=== PATIENT | male | born 1965 | race Two or more races ===

== ENCOUNTER 2016-12-25 13:33 | Inpatient (IN) | payer MEDICARE, MEDICAID ==
[~2016-12-25] VITALS: Ht 175.3 cm; Wt 68.0 kg
[~2016-12-25 13:33] MED LIST: DEPAKOTE ER500 MG ORAL; FERROUS SULFAT325 M2 ORAL; KEPPRA500 MG ORAL; LACTULOSE20 GM/301 ORAL; LORAZEPAM1 MG ORAL; MOM30 ML ORAL; MYLANTA30 M1 PO; NORCO 5-325 TA1 EAC1 ORAL; PHENOBARBITAL100 MG ORAL; RISPERDAL1 MG PO; TRAMADOL HCL50 MG ORAL; TYLENOL325 MG ORAL
[2016-12-25 13:45] VITALS: BP 108/73
[2016-12-25] MEDS ORDERED: AMBIEN5 MG ORAL (13:46)
[2016-12-25] MEDS ORDERED: COLACE100 MG ORAL (13:46)
[2016-12-25] MEDS ORDERED: Cefepime HCl 1 GM in NS 55 ML IV STA (13:48)
[2016-12-25] MEDS ORDERED: DEPAKENE250 MG/5 M PO (13:56)
[2016-12-25] MEDS ORDERED: NEURONTIN100 MG ORAL (13:57)
[2016-12-25] MEDS ORDERED: PHENOBARBITAL60 MG ORAL (13:57)
[2016-12-25] MEDS ORDERED: Vancomycin 1 GM in NS 275 ML IV ONE (14:00)
[2016-12-25] MEDS ORDERED: Morphine Sulfate 2mg/ml Inj IVP ONE (14:00)
--- NOTE | 2016-12-25 14:44 | Emergency Room Report ---
History of Present Illness General Chief Complaint: Edema Source: Patient, Medical Record, EMS Present Illness HPI Patient is sent in for increased edema and erythema the right lower leg. He sustained a fracture in 2016. An x-ray was taken on December 21 which excluded a fracture at this time. The patient's complaining about pain in the leg. Swelling was noted and he was sent for evaluation. He is unable to communicate well because of an expressive aphasia. He denies GIBBONS , cough, sore throat, chest pain, dyspnea. Does not seem to understand about dysuria. Chronic contractures. 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 The patient suffers from seizures and is on Keppra, phenobarbital and gabapentin. It's unknown when his last seizure was - though he was seen twice in 2016 for seizures. POLST present, but not filled out. 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; hemiplegia Hx Cerebrovascular Accident: Yes Hx Seizures: Yes Review of Systems All Other Systems: limited Physical Exam Vital Signs Date Time Temp Pulse Resp B/P (MAP) Pulse Ox O2 Delivery O2 Flow Rate FiO2 12/25/16 13:35 97.5 104 16 111/73 95 Room Air Sp02 EP Interpretation: reviewed, abnormal - interpreted as low by me General Appearance: well appearing, no apparent distress, GCS 15 Head: other - craneal abnormality Eyes: bilateral eye normal inspection, bilateral eye PERRL ENT: dry mucus membranes Neck: supple Respiratory: lungs clear, normal breath sounds Cardiovascular #1: no murmur, tachycardia, edema - RLE 1-2+ Cardiovascular #2: 2+ radial (L) Gastrointestinal: normal inspection, normal bowel sounds, non tender, no mass, non-distended, other - G tube Musculoskeletal: back normal, other - R flexor contractures UE and extensor conctracures LE Neurologic: alert, responsive, motor weakness - R hemiparesis, other - yes and no answers Psychiatric: mood/affect normal Skin: warm/dry, other - erythema L lower leg with erythematous plaques dorsum near ankle Medical Decision Making Diagnostic Impression: Primary Impression: Cellulitis of right foot Additional Impressions: Status post CVA UTI (urinary tract infection) Qualified Codes: N30.00 - Acute cystitis without hematuria Old fracture right tibia Hypernatremia Renal insufficiency Seizure disorder ER Course Patient presents with edema and erythema of RLE. DDx: cellulitis, osteomyelitis , fracture amongst others. Based on complex presentation and prior medical condition, full evaluation needed with EKG, CXR, BC, lactate, CBC, CMP and coags. Xrays will be taken of RLE and foot. Patient will be treated with IV hydration, antibiotics and analgesia. EKG ST, CXR atelectasis L base, Old fx R tib fib with osteopenia foot. Labs with hypernatremia, renal insufficiency. WBC upper limits normal. Pyuria. Phenobarbital level normal. Improved with hydration and treatment for pain. Admitted medical Dr. Ferrer. Laboratory Tests Test 12/25/16 14:10 12/25/16 14:40 White Blood Count 10.4 K/UL (4.8-10.8) Red Blood Count 3.43 M/UL (4.70-6.10) L Hemoglobin 10.7 G/DL (14.2-18.0) L Hematocrit 33.7 % (42.0-52.0) L Mean Corpuscular Volume 98 FL (80-99) Mean Corpuscular Hemoglobin 31.1 PG (27.0-31.0) H Mean Corpuscular Hemoglobin Concent 31.6 G/DL (32.0-36.0) L Red Cell Distribution Width 14.3 % (11.6-14.8) Platelet Count 270 K/UL (150-450) Mean Platelet Volume 5.6 FL (6.5-10.1) L Neutrophils (%) (Auto) 70.7 % (45.0-75.0) Lymphocytes (%) (Auto) 21.2 % (20.0-45.0) Monocytes (%) (Auto) 7.3 % (1.0-10.0) Eosinophils (%) (Auto) 0.4 % (0.0-3.0) Basophils (%) (Auto) 0.4 % (0.0-2.0) Prothrombin Time 9.4 SEC (9.30-11.50) Prothrombin Time INR 0.9 (0.9-1.1) PTT 36 SEC (23-33) H Sodium Level 147 MMOL/L (136-145) H Potassium Level 4.1 MMOL/L (3.5-5.1) Chloride Level 110 MMOL/L (98-107) H Carbon Dioxide Level 28 MMOL/L (21-32) Anion Gap 9 mmol/L (5-15) Blood Urea Nitrogen 28 mg/dL (7-18) H Creatinine 1.6 MG/DL (0.55-1.30) H Estimate Glomerular Filtration Rate 46.2 mL/min (>60) Glucose Level 75 MG/DL (74-106) Lactic Acid Level 1.00 mmol/L (0.66-2.22) Calcium Level 9.7 MG/DL (8.5-10.1) Total Bilirubin 0.5 MG/DL (0.2-1.0) Aspartate Amino Transferase (AST) 73 U/L (15-37) H Alanine Aminotransferase (ALT) 215 U/L (12-78) H Alkaline Phosphatase 474 U/L (46-116) H Total Creatine Kinase 65 U/L (26-308) Troponin I 0.000 ng/mL (0.000-0.056) Pro-B-Type Natriuretic Peptide 254 pg/mL (0-125) H Total Protein 8.5 G/DL (6.4-8.2) H Albumin 2.2 G/DL (3.4-5.0) L Globulin 6.3 g/dL Albumin/Globulin Ratio 0.3 (1.0-2.7) L Phenobarbital Level 30.9 ug/mL (15-40) Urine Color Yellow Urine Appearance Clear Urine pH 5 (4.5-8.0) Urine Specific [place] 1.015 (1.005-1.035) Urine Protein 2+ (NEGATIVE) H Urine Glucose (UA) Negative (NEGATIVE) Urine Ketones Negative (NEGATIVE) Urine Occult Blood 5+ (NEGATIVE) H Urine Nitrite Negative (NEGATIVE) Urine Bilirubin Negative (NEGATIVE) Urine Urobilinogen Normal MG/DL (0.0-1.0) Urine Leukocyte Esterase 3+ (NEGATIVE) H Urine RBC 10-15 /HPF (0 - 0) H Urine WBC 20-30 /HPF (0 - 0) H Urine Squamous Epithelial Cells Few /LPF (NONE/OCC) Urine Bacteria Moderate /HPF (NONE) H EKG Diagnostic Results Rate: tachycardiac ST Segments: no acute changes Rhythm Strip Diag. Results EP Interpretation: yes Rhythm: no PVC's, no ectopy, other - Sinus tachycardia Chest X-Ray Diagnostic Results Chest X-Ray Diagnostic Results : Chest X-Ray Ordered: Yes # of Views/Limited/Complete: 1 View Indication: Other EP Interpretation: Yes Interpretation: no effusion, no pneumothorax, other - atelectasis L base Impression: Other Electronically Signed by: Electronically signed by Joselo Salmeron MD Other X-Ray Diagnostic Results Other X-Ray Diagnostic Results #1: X-Ray ordered: tib fib # of Views/Limited Vs Complete: 2 View Indication: Pain EP Interpretation: Yes Interpretation: no dislocation, no soft tissue swelling, other - old fx Electronically Signed by: Electronically signed by Joselo Salmeron MD Other X-Ray Diagnostic Results #2: X-Ray ordered: foot # of Views/Limited Vs Complete: 3 View Indication: Swelling EP Interpretation: Yes Interpretation: no dislocation, no fractures, other - STS no gas - old tibial fx Impression: Other Electronically Signed by: Electronically signed by Joselo Salmeron MD Last Vital Signs Date Time Temp Pulse Resp B/P (MAP) Pulse Ox O2 Delivery O2 Flow Rate FiO2 12/25/16 15:30 97.7 88 14 100/63 95 Room Air Status: improved Disposition: ADMITTED INPATIENT Condition: Serious Referrals: NON PHYSICIAN (PCP) Joselo Salmeron M.D. Dec 25, 2016 14:44
[2016-12-25 15:15] LABS: APPEARANCE,URINE CLEAR; KETONES,URINE NEGATIVE (NEGATIVE); LEUKOCYTE ESTERASE ,URINE 3+ (NEGATIVE); NITRITE,URINE NEGATIVE (NEGATIVE); PH,URINE 5 (4.5-8.0); PROTEIN,URINE 2+ (NEGATIVE); UROBILINOGEN,URINE NORMAL MG/DL (0.0-1.0)
[2016-12-25 15:20] LABS: BASOPHILS % (AUTO) 0.4 % (0.0-2.0); EOSINOPHILS % (AUTO) 0.4 % (0.0-3.0); LYMPHOCYTES % (AUTO) 21.2 % (20.0-45.0); MEAN CORPUSCULAR HEMOGLOBIN 31.1 PG (27.0-31.0); MEAN CORPUSCULAR HGB CONC 31.6 G/DL (32.0-36.0); MEAN CORPUSCULAR VOLUME 98 FL (80-99); MEAN PLATELET VOLUME 5.6 FL (6.5-10.1); MONOCYTES % (AUTO) 7.3 % (1.0-10.0); NEUTROPHILS % (AUTO) 70.7 % (45.0-75.0); PLATELET COUNT 270 K/UL (150-450); RED BLOOD COUNT 3.43 M/UL (4.70-6.10); RED CELL DISTRIBUTION WIDTH 14.3 % (11.6-14.8); WHITE BLOOD COUNT 10.4 K/UL (4.8-10.8)
[2016-12-25 15:26] LABS: WBC,URINE 20-30 /HPF (0 - 0)
[2016-12-25 15:27] LABS: BACTERIA,URINE MODERATE /HPF; SQUAMOUS EPITHELIAL CELL,UR FEW /LPF (NONE/OCC)
[2016-12-25 15:30] VITALS: BP 100/63
[2016-12-25 15:33] LABS: INR 0.9 (0.9-1.1); PROTHROMBIN TIME 9.4 SEC (9.30-11.50)
[2016-12-25 15:47] LABS: ALANINE AMINOTRANSFERASE 215 U/L (12-78); ALBUMIN/GLOBULIN RATIO 0.3 (1.0-2.7); ANION GAP 9 mmol/L (5-15); ASPARTATE AMINO TRANSFERASE 73 U/L (15-37); CALCIUM 9.7 MG/DL (8.5-10.1); CARBON DIOXIDE 28 MMOL/L (21-32); CHLORIDE 110 MMOL/L (98-107); CREATININE 1.6 MG/DL (0.55-1.30); GLOMERULAR FILTRATION RATE 46.2 mL/min (>60); POTASSIUM 4.1 MMOL/L (3.5-5.1); SODIUM 147 MMOL/L (136-145); TOTAL PROTEIN 8.5 G/DL (6.4-8.2)
[2016-12-25] MEDS ORDERED: Cefepime 1gm vial ONE (15:49)
[2016-12-25] MEDS ORDERED: Vancomycin 1gm inj IVPB ONE (16:21)
[2016-12-25 17:01] VITALS: BP 98/62
[2016-12-25 17:15] VITALS: BP 108/71
[2016-12-25] MEDS ORDERED: Miralax 17gm pkt ORAL PRN (18:00)
[2016-12-25] MEDS ORDERED: Albuterol/Ipratropium 3ml neb HHN PRN (18:00)
[2016-12-25] MEDS ORDERED: Nitroglycerin Subl 0.4mg tab SL PRN (18:00)
[2016-12-25 20:16] VITALS: BP 102/62
[2016-12-25] MEDS: Depakote ER 500mg tab ORAL SCH (20:43)
[2016-12-25] MEDS: PHENobarbital 32.4mg tab ORAL SCH (20:44)
[2016-12-25] MEDS: Heparin 5000 units/ml inj SUBQ SCH (20:45)
[2016-12-26 00:05] VITALS: BP 142/92
[2016-12-26] MEDS ORDERED: Vancomycin 1 GM in D5W 275 ML IV SCH (00:30)
[2016-12-26 03:30] VITALS: BP 127/68
[2016-12-26] MEDS ORDERED: Cefepime HCl 2 GM in D5W 110 ML IV SCH (04:00)
[2016-12-26 07:47] LABS: BASOPHILS % (AUTO) 0.3 % (0.0-2.0); EOSINOPHILS % (AUTO) 1.1 % (0.0-3.0); LYMPHOCYTES % (AUTO) 35.6 % (20.0-45.0); MEAN CORPUSCULAR HEMOGLOBIN 31.6 PG (27.0-31.0); MEAN CORPUSCULAR HGB CONC 32.1 G/DL (32.0-36.0); MEAN CORPUSCULAR VOLUME 99 FL (80-99); MEAN PLATELET VOLUME 5.7 FL (6.5-10.1); MONOCYTES % (AUTO) 7.6 % (1.0-10.0); NEUTROPHILS % (AUTO) 55.4 % (45.0-75.0); PLATELET COUNT 243 K/UL (150-450); RED BLOOD COUNT 2.94 M/UL (4.70-6.10); RED CELL DISTRIBUTION WIDTH 14.2 % (11.6-14.8); WHITE BLOOD COUNT 7.6 K/UL (4.8-10.8)
[2016-12-26] MEDS: Depakote ER 500mg tab ORAL SCH ×2 (08:14→20:32)
[2016-12-26] MEDS: PHENobarbital 32.4mg tab ORAL SCH ×2 (08:15→20:33)
--- NOTE | 2016-12-26 08:18 | Diagnostic Imaging Report ---
Indication: Chest pain Technique: One view of the chest Comparison: none Findings: There is some atelectasis at the at both lung bases, left and right. Inspiration is suboptimal. Heart size is normal. The remainder of the lungs and pleural spaces are clear Impression: Hypoventilatory exam with bilateral basilar atelectasis No acute process otherwise This agrees with the preliminary interpretation provided by the emergency room physician
[2016-12-26] MEDS: Heparin 5000 units/ml inj SUBQ SCH ×2 (08:23→20:37)
[2016-12-26 08:26] LABS: ALANINE AMINOTRANSFERASE 156 U/L (12-78); ALBUMIN/GLOBULIN RATIO 0.3 (1.0-2.7); ANION GAP 7 mmol/L (5-15); ASPARTATE AMINO TRANSFERASE 54 U/L (15-37); CALCIUM 9.3 MG/DL (8.5-10.1); CARBON DIOXIDE 28 MMOL/L (21-32); CHLORIDE 114 MMOL/L (98-107); CREATININE 1.5 MG/DL (0.55-1.30); GLOMERULAR FILTRATION RATE 49.7 mL/min (>60); SODIUM 149 MMOL/L (136-145); TOTAL PROTEIN 7.4 G/DL (6.4-8.2)
--- NOTE | 2016-12-26 08:40 | Diagnostic Imaging Report ---
Indication: PAIN Technique: 2 views of the right tibia and fibula Comparison: none Findings: There is an unusual fracture deformity of the distal tibia. There is also fracture deformity of the proximal fibula. No acute fractures. No dislocations. No significant soft tissue swelling. No radiopaque foreign body or soft tissue gas Impression: No acute process This agrees with the preliminary interpretation provided by the emergency room physician
[2016-12-26 08:51] VITALS: BP 124/74
--- NOTE | 2016-12-26 08:56 | Diagnostic Imaging Report ---
Indication: PAIN Technique: 3 views right foot Comparison: none Findings: No acute fractures. No dislocations. The joint spaces are preserved. The bones are osteoporotic. Unusual osseous defect in the distal tibia likely relates to prior trauma. Impression: No acute process. Findings as noted This agrees with the preliminary interpretation provided by the emergency room physician
[2016-12-26] MEDS: Morphine Sulfate 2mg/ml Inj IVP PRN ×2 (11:18→17:13)
[2016-12-26 12:00] VITALS: BP 101/68
[2016-12-26] MEDS ORDERED: Vancomycin 1250mg/D5W 250ml IVPB SCH (12:00)
--- NOTE | 2016-12-26 12:12 | Consultation ---
History of Present Illness General Date patient seen: Dec 26, 2016 Time patient seen: 12:18 Chief Complaint: Edema Reason for Consultation: Cellulitis Present Illness HPI 51 y.o M with hx of 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, s/p GT, anemia, s/p leg fracture 2014, non verbal (expressive aphasia), chronic contractures is brought to ED on 12/25 for increased R Leg edema and erythema. Denied GIBBONS, cough, Sore throast, CP, dyspnea upon admission ID is consulted for concern for R leg cellulitis. Allergies: Coded Allergies: NO KNOWN ALLERGIES (Unverified Allergy, Unknown, 02/08/15) Medication History Scheduled Divalproex Sodium* (Depakote Er*), 500 MG ORAL EVERY 12 HOURS, (Reported) Docusate Sodium* (Colace*), 100 MG ORAL DAILY, (Reported) Ferrous Sulfate (Ferrous Sulfate), 325 MG ORAL BID, (Reported) Gabapentin* (Neurontin*), 100 MG ORAL THREE TIMES A DAY, (Reported) Levetiracetam (Keppra), 1,500 MG ORAL EVERY 12 HOURS, (Reported) Phenobarbital (Phenobarbital), 64.8 MG ORAL Q12HR, (Reported) Phenobarbital* (Phenobarbital*), 64.8 MG ORAL BID, (Reported) Risperidone* (Risperdal*), 1 MG PO BIDAC, (Reported) Valproate Sodium (Depakene), 500 MG PO BID, (Reported) Scheduled PRN Acetaminophen (Tylenol), 650 MG ORAL Q4HR PRN for Fever/Headache/Mild Pain, ( Reported) Al Hydroxide/mg Hydroxide (Mag-Al Liquid), 30 ML PO Q4HR PRN for For Pain, ( Reported) Hydrocodone Bit/Acetaminophen 5-325* ([employer] 5-325 Tablet*), 1 TAB ORAL Q6HR PRN for For Pain, (Reported) Lorazepam* (Lorazepam*), 1 MG ORAL Q6HR PRN for For Anxiety, (Reported) Magnesium Hydroxide (Milk of Magnesia), 30 ML ORAL Q6HR PRN for Constipation, ( Reported) Tramadol Hcl* (Ultram*), 50 MG ORAL Q6H PRN for For Pain, (Reported) Zolpidem Tartrate* (Ambien*), 5 MG ORAL BEDTIME PRN for Insomnia, (Reported) Miscellaneous Medications Lactulose (Lactulose*), 30 ML ORAL, (Reported) Patient History Healthcare decision maker Resuscitation status Full Code Advanced Directive on File Patient History Narrative PMhx: as above SHx:lives SNF FHx: non contributory Review of Systems ROS Narrative unable to obtain given condition Physical Exam Physical Exam Narrative General Appearance: well appearing, no apparent distress HEENT: bilateral eye PERRL, dry mucus membranes Neck: supple Respiratory: lungs clear, normal breath sounds Cardiovascular : no murmur, tachycardia, edema - RLE 1-2+ Gastrointestinal: normal inspection, normal bowel sounds, non tender, no mass, non-distended, other - G tube Musculoskeletal: back normal, other - R flexor contractures UE and extensor contractures LE Neurologic: alert, responsive, motor weakness - R hemiparesis, other - yes and no answers Psychiatric: mood/affect normal Skin: warm/dry, other - erythema R dorsum of foot extending to distal leg with erythematous plaques dorsum near ankle Last 24 Hour Vital Signs Date Time Temp Pulse Resp B/P (MAP) Pulse Ox O2 Delivery O2 Flow Rate FiO2 12/26/16 08:51 98.1 89 18 124/74 94 Room Air 12/26/16 03:30 97.6 56 19 127/68 96 Room Air 12/26/16 00:05 97.6 102 19 142/92 98 Room Air 12/25/16 20:16 97.5 88 19 102/62 96 Room Air 12/25/16 17:15 97.5 91 18 108/71 93 Room Air 12/25/16 17:01 98.0 76 15 98/62 96 Room Air 12/25/16 17:00 97.7 76 15 98/62 96 Room Air 12/25/16 15:30 97.7 88 14 100/63 95 Room Air 12/25/16 14:55 97.5 12/25/16 13:45 97.7 100 14 108/73 94 Room Air 12/25/16 13:45 100 14 Room Air 12/25/16 13:35 97.5 104 16 111/73 95 Room Air Laboratory Tests Test 12/25/16 14:10 12/25/16 14:40 12/26/16 04:50 White Blood Count 10.4 K/UL (4.8-10.8) 7.6 K/UL (4.8-10.8) Red Blood Count 3.43 M/UL (4.70-6.10) L 2.94 M/UL (4.70-6.10) L Hemoglobin 10.7 G/DL (14.2-18.0) L 9.3 G/DL (14.2-18.0) L Hematocrit 33.7 % (42.0-52.0) L 28.9 % (42.0-52.0) L Mean Corpuscular Volume 98 FL (80-99) 99 FL (80-99) Mean Corpuscular Hemoglobin 31.1 PG (27.0-31.0) H 31.6 PG (27.0-31.0) H Mean Corpuscular Hemoglobin Concent 31.6 G/DL (32.0-36.0) L 32.1 G/DL (32.0-36.0) Red Cell Distribution Width 14.3 % (11.6-14.8) 14.2 % (11.6-14.8) Platelet Count 270 K/UL (150-450) 243 K/UL (150-450) Mean Platelet Volume 5.6 FL (6.5-10.1) L 5.7 FL (6.5-10.1) L Neutrophils (%) (Auto) 70.7 % (45.0-75.0) 55.4 % (45.0-75.0) Lymphocytes (%) (Auto) 21.2 % (20.0-45.0) 35.6 % (20.0-45.0) Monocytes (%) (Auto) 7.3 % (1.0-10.0) 7.6 % (1.0-10.0) Eosinophils (%) (Auto) 0.4 % (0.0-3.0) 1.1 % (0.0-3.0) Basophils (%) (Auto) 0.4 % (0.0-2.0) 0.3 % (0.0-2.0) Prothrombin Time 9.4 SEC (9.30-11.50) Prothromb Time International Ratio 0.9 (0.9-1.1) Activated Partial Thromboplast Time 36 SEC (23-33) H Sodium Level 147 MMOL/L (136-145) H 149 MMOL/L (136-145) H Potassium Level 4.1 MMOL/L (3.5-5.1) 4.0 MMOL/L (3.5-5.1) Chloride Level 110 MMOL/L (98-107) H 114 MMOL/L (98-107) H Carbon Dioxide Level 28 MMOL/L (21-32) 28 MMOL/L (21-32) Anion Gap 9 mmol/L (5-15) 7 mmol/L (5-15) Blood Urea Nitrogen 28 mg/dL (7-18) H 21 mg/dL (7-18) H Creatinine 1.6 MG/DL (0.55-1.30) H 1.5 MG/DL (0.55-1.30) H Estimat Glomerular Filtration Rate 46.2 mL/min (>60) 49.7 mL/min (>60) Glucose Level 75 MG/DL (74-106) 69 MG/DL (74-106) L Lactic Acid Level 1.00 mmol/L (0.66-2.22) Calcium Level 9.7 MG/DL (8.5-10.1) 9.3 MG/DL (8.5-10.1) Total Bilirubin 0.5 MG/DL (0.2-1.0) 0.3 MG/DL (0.2-1.0) Aspartate Amino Transf (AST/SGOT) 73 U/L (15-37) H 54 U/L (15-37) H Alanine Aminotransferase (ALT/SGPT) 215 U/L (12-78) H 156 U/L (12-78) H Alkaline Phosphatase 474 U/L (46-116) H 447 U/L (46-116) H Total Creatine Kinase 65 U/L (26-308) Troponin I 0.000 ng/mL (0.000-0.056) Pro-B-Type Natriuretic Peptide 254 pg/mL (0-125) H Total Protein 8.5 G/DL (6.4-8.2) H 7.4 G/DL (6.4-8.2) Albumin 2.2 G/DL (3.4-5.0) L 1.9 G/DL (3.4-5.0) L Globulin 6.3 g/dL 5.5 g/dL Albumin/Globulin Ratio 0.3 (1.0-2.7) L 0.3 (1.0-2.7) L Phenobarbital Level 30.9 ug/mL (15-40) Urine Color Yellow Urine Appearance Clear Urine pH 5 (4.5-8.0) Urine Specific [place] 1.015 (1.005-1.035) Urine Protein 2+ (NEGATIVE) H Urine Glucose (UA) Negative (NEGATIVE) Urine Ketones Negative (NEGATIVE) Urine Occult Blood 5+ (NEGATIVE) H Urine Nitrite Negative (NEGATIVE) Urine Bilirubin Negative (NEGATIVE) Urine Urobilinogen Normal MG/DL (0.0-1.0) Urine Leukocyte Esterase 3+ (NEGATIVE) H Urine RBC 10-15 /HPF (0 - 0) H Urine WBC 20-30 /HPF (0 - 0) H Urine Squamous Epithelial Cells Few /LPF (NONE/OCC) Urine Bacteria Moderate /HPF (NONE) H Microbiology Date/Time Source Procedure Growth Status 12/25/16 14:40 Urine,Clean Catch Urine Culture - Preliminary Resulted Height (Feet): 5 Height (Inches): 9.00 Weight (Pounds): 150 Medications Current Medications Medications (Trade) Dose Ordered Sig/Ludy Route PRN Reason Start Time Stop Time Status Last Admin Dose Admin Acetaminophen (Tylenol) 650 mg Q4H PRN ORAL Mild Pain/Temp > 100.5 12/26/16 08:00 01/25/17 07:59 12/26/16 08:14 Albuterol/ Ipratropium (DuoNeb 0.5-3(2.5)mg/3ml) 3 ml EVERY 4 HOURS PRN HHN Shortness of Breath 12/25/16 18:00 12/30/16 17:59 Cefepime HCl 2 gm/ Dextrose 110 ml @ 220 mls/hr Q24H IV 12/26/16 04:00 01/02/17 03:59 12/26/16 03:01 Dextrose (Dextrose 50%) STAT PRN IV Hypoglycemia 12/25/16 18:00 01/24/17 17:59 Divalproex Sodium (Depakote ER) 500 mg EVERY 12 HOURS ORAL 12/25/16 21:00 01/24/17 20:59 12/26/16 08:14 Gabapentin (Neurontin) 100 mg THREE TIMES A DAY ORAL 12/25/16 18:00 01/24/17 17:59 12/26/16 08:13 Heparin Sodium (Porcine) (Heparin 5000 units/ml) 5,000 units EVERY 12 HOURS SUBQ 12/25/16 21:00 01/24/17 20:59 12/26/16 08:23 Levetiracetam (Keppra) 1,500 mg EVERY 12 HOURS ORAL 12/25/16 21:00 01/24/17 20:59 12/26/16 08:15 Lorazepam (Ativan) 1 mg Q6H PRN ORAL For Anxiety 12/25/16 18:00 01/01/17 17:59 Morphine Sulfate (Morphine Sulfate) 2 mg EVERY 4 HOURS PRN IVP Moderate Pain (Pain Scale 4-6) 12/25/16 18:00 01/01/17 17:59 12/26/16 11:18 Nitroglycerin (Ntg) 0.4 mg Q5MIN X3 PRN SL Prn Chest Pain 12/25/16 18:00 01/24/17 17:59 Ondansetron HCl (Zofran) 4 mg Q6H PRN IVP Nausea & Vomiting 12/25/16 18:00 01/24/17 17:59 Phenobarbital (PHENobarbital) 64.8 mg Q12HR ORAL 12/25/16 21:00 01/24/17 20:59 12/26/16 08:15 Polyethylene Glycol (Miralax) 17 gm DAILYPRN PRN ORAL Constipation 12/25/16 18:00 01/24/17 17:59 Risperidone (RisperDAL) 1 mg BEDTIME ORAL 12/25/16 21:00 01/24/17 20:59 12/25/16 20:44 Temazepam (Restoril) 15 mg HSPRN PRN ORAL Insomnia 12/25/16 21:00 01/01/17 20:59 Vancomycin HCl (Vanco rx to dose) 1 ea DAILY PRN MISC per Rx protocol 12/25/16 18:00 01/24/17 17:59 Vancomycin HCl/ Dextrose 250 ml @ 166.667 mls/hr Q24H IVPB 12/26/16 12:00 12/31/16 11:59 12/26/16 11:18 Assessment/Plan Assessment/Plan Abx: IV Vanco/Cefepime 12/25- Assesment: R leg/foot cellulitis- erythematous plaque lesions (unclear etiology)-? related to cellulitis, petechial-like, ? vasculitis, zoonotic related -xray R foot/tibia/fibula-: no acute process -venous duplex BLE: no DVT Afebrile, no leukocytosis ADOLFO Transaminitis 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, s/p GT, anemia, s/p leg fracture 2014, non verbal (expressive aphasia), chronic contractures Plan: -Switch IV Vanco and Cefepime to IV Ancef and Doxycycline -Monitor erythematous plaques on R foot- if not improving/worsening, consider skin biopsy -check HIV ag/ab, RPR, cocci ab -f/u cx -Monitor CBC/BMP, temperatures -leg elevation Thank you for this consultation. Will continue to follow along with you. Discussed with Nataliia Mills M.D. Dec 26, 2016 12:12
[2016-12-26] MEDS ORDERED: NS 275ml ONE ×2 (14:41)
[2016-12-26] MEDS: ceFAZolin 1gm in D5W 55ml IVPB SCH ×2 (14:47→21:38)
[2016-12-26 16:04] VITALS: BP 133/88
[2016-12-26] MEDS: LORazepam 1mg tab ORAL PRN (19:02)
[2016-12-26 19:26] VITALS: BP 107/69
--- NOTE | 2016-12-26 21:53 | History and Physical ---
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 Pt is admitted for treatment of acute cellulitis. Allergies: Coded Allergies: NO KNOWN ALLERGIES (Unverified Allergy, Unknown, 02/08/15) Medication History Scheduled Divalproex Sodium* (Depakote Er*), 500 MG ORAL EVERY 12 HOURS, (Reported) Docusate Sodium* (Colace*), 100 MG ORAL DAILY, (Reported) Ferrous Sulfate (Ferrous Sulfate), 325 MG ORAL BID, (Reported) Gabapentin* (Neurontin*), 100 MG ORAL THREE TIMES A DAY, (Reported) Levetiracetam (Keppra), 1,500 MG ORAL EVERY 12 HOURS, (Reported) Phenobarbital (Phenobarbital), 64.8 MG ORAL Q12HR, (Reported) Phenobarbital* (Phenobarbital*), 64.8 MG ORAL BID, (Reported) Risperidone* (Risperdal*), 1 MG PO BIDAC, (Reported) Valproate Sodium (Depakene), 500 MG PO BID, (Reported) Scheduled PRN Acetaminophen (Tylenol), 650 MG ORAL Q4HR PRN for Fever/Headache/Mild Pain, ( Reported) Al Hydroxide/mg Hydroxide (Mag-Al Liquid), 30 ML PO Q4HR PRN for For Pain, ( Reported) Hydrocodone Bit/Acetaminophen 5-325* ([place] 5-325 Tablet*), 1 TAB ORAL Q6HR PRN for For Pain, (Reported) Lorazepam* (Lorazepam*), 1 MG ORAL Q6HR PRN for For Anxiety, (Reported) Magnesium Hydroxide (Milk of Magnesia), 30 ML ORAL Q6HR PRN for Constipation, ( Reported) Tramadol Hcl* (Ultram*), 50 MG ORAL Q6H PRN for For Pain, (Reported) Zolpidem Tartrate* (Ambien*), 5 MG ORAL BEDTIME PRN for Insomnia, (Reported) Miscellaneous Medications Lactulose (Lactulose*), 30 ML ORAL, (Reported) Patient History Healthcare decision maker Resuscitation status Full Code Advanced Directive on File Past Medical/Surgical History Past Medical/Surgical History: (1) Seizure disorder (2) Status post CVA (3) chronic seizure disorder, refractory (4) 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 Last 24 Hour Vital Signs Date Time Temp Pulse Resp B/P (MAP) Pulse Ox O2 Delivery O2 Flow Rate FiO2 12/26/16 20:01 97.5 12/26/16 19:44 79 16 Room Air 21 12/26/16 19:26 97.5 85 20 107/69 92 Room Air 12/26/16 16:04 97.7 90 20 133/88 98 Room Air 12/26/16 12:00 97.7 81 18 101/68 99 Room Air 12/26/16 08:51 98.1 89 18 124/74 94 Room Air 12/26/16 03:30 97.6 56 19 127/68 96 Room Air 12/26/16 00:05 97.6 102 19 142/92 98 Room Air Intake and Output 12/26/16 12/27/16 19:00 07:00 Intake Total 490.000 ml Output Total 600 ml Balance -110.000 ml Intake Oral 240 ml IV Total 250.000 ml Output Urine Total 600 ml Laboratory Tests Test 12/26/16 04:50 White Blood Count 7.6 K/UL (4.8-10.8) Red Blood Count 2.94 M/UL (4.70-6.10) L Hemoglobin 9.3 G/DL (14.2-18.0) L Hematocrit 28.9 % (42.0-52.0) L Mean Corpuscular Volume 99 FL (80-99) Mean Corpuscular Hemoglobin 31.6 PG (27.0-31.0) H Mean Corpuscular Hemoglobin Concent 32.1 G/DL (32.0-36.0) Red Cell Distribution Width 14.2 % (11.6-14.8) Platelet Count 243 K/UL (150-450) Mean Platelet Volume 5.7 FL (6.5-10.1) L Neutrophils (%) (Auto) 55.4 % (45.0-75.0) Lymphocytes (%) (Auto) 35.6 % (20.0-45.0) Monocytes (%) (Auto) 7.6 % (1.0-10.0) Eosinophils (%) (Auto) 1.1 % (0.0-3.0) Basophils (%) (Auto) 0.3 % (0.0-2.0) Sodium Level 149 MMOL/L (136-145) H Potassium Level 4.0 MMOL/L (3.5-5.1) Chloride Level 114 MMOL/L (98-107) H Carbon Dioxide Level 28 MMOL/L (21-32) Anion Gap 7 mmol/L (5-15) Blood Urea Nitrogen 21 mg/dL (7-18) H Creatinine 1.5 MG/DL (0.55-1.30) H Estimat Glomerular Filtration Rate 49.7 mL/min (>60) Glucose Level 69 MG/DL (74-106) L Calcium Level 9.3 MG/DL (8.5-10.1) Total Bilirubin 0.3 MG/DL (0.2-1.0) Aspartate Amino Transf (AST/SGOT) 54 U/L (15-37) H Alanine Aminotransferase (ALT/SGPT) 156 U/L (12-78) H Alkaline Phosphatase 447 U/L (46-116) H Total Protein 7.4 G/DL (6.4-8.2) Albumin 1.9 G/DL (3.4-5.0) L Globulin 5.5 g/dL Albumin/Globulin Ratio 0.3 (1.0-2.7) L Height (Feet): 5 Height (Inches): 9.00 Weight (Pounds): 150 Medications Current Medications Medications (Trade) Dose Ordered Sig/Ludy Route PRN Reason Start Time Stop Time Status Last Admin Dose Admin Acetaminophen (Tylenol) 650 mg Q4H PRN ORAL Mild Pain/Temp > 100.5 12/26/16 08:00 01/25/17 07:59 10/23/17 19:02 Albuterol/ Ipratropium (DuoNeb 0.5-3(2.5)mg/3ml) 3 ml EVERY 4 HOURS PRN HHN Shortness of Breath 12/25/16 18:00 12/30/16 17:59 Cefazolin Sodium 1 gm/Dextrose 55 ml @ 110 mls/hr EVERY 8 HOURS IVPB 12/26/16 15:00 01/02/17 14:59 12/26/16 21:38 Dextrose (Dextrose 50%) STAT PRN IV Hypoglycemia 12/25/16 18:00 01/24/17 17:59 Divalproex Sodium (Depakote ER) 500 mg EVERY 12 HOURS ORAL 12/25/16 21:00 01/24/17 20:59 12/26/16 20:32 Doxycycline Monohydrate (Vibramycin) 100 mg EVERY 12 HOURS ORAL 12/26/16 14:00 01/02/17 13:59 12/26/16 20:34 Gabapentin (Neurontin) 100 mg THREE TIMES A DAY ORAL 12/25/16 18:00 01/24/17 17:59 12/26/16 17:13 Heparin Sodium (Porcine) (Heparin 5000 units/ml) 5,000 units EVERY 12 HOURS SUBQ 12/25/16 21:00 01/24/17 20:59 12/26/16 20:37 Levetiracetam (Keppra) 1,500 mg EVERY 12 HOURS ORAL 12/25/16 21:00 01/24/17 20:59 12/26/16 20:33 Lorazepam (Ativan) 1 mg Q6H PRN ORAL For Anxiety 12/25/16 18:00 01/01/17 17:59 12/26/16 19:02 Morphine Sulfate (Morphine Sulfate) 2 mg EVERY 4 HOURS PRN IVP Moderate Pain (Pain Scale 4-6) 12/25/16 18:00 01/01/17 17:59 12/26/16 17:13 Nitroglycerin (Ntg) 0.4 mg Q5MIN X3 PRN SL Prn Chest Pain 12/25/16 18:00 01/24/17 17:59 Ondansetron HCl (Zofran) 4 mg Q6H PRN IVP Nausea & Vomiting 12/25/16 18:00 01/24/17 17:59 Phenobarbital (PHENobarbital) 64.8 mg Q12HR ORAL 12/25/16 21:00 01/24/17 20:59 12/26/16 20:33 Polyethylene Glycol (Miralax) 17 gm DAILYPRN PRN ORAL Constipation 12/25/16 18:00 01/24/17 17:59 Risperidone (RisperDAL) 1 mg BEDTIME ORAL 12/25/16 21:00 01/24/17 20:59 12/26/16 20:42 Temazepam (Restoril) 15 mg HSPRN PRN ORAL Insomnia 12/25/16 21:00 01/01/17 20:59 Assessment/Plan Problem List: (1) Cellulitis of right foot ICD Codes: L03.115 - Cellulitis of right lower limb SNOMED: 942428351 (2) Status post CVA ICD Codes: Z86.73 - Personal history of transient ischemic attack (TIA), and cerebral infarction without residual deficits SNOMED: 591591646 (3) 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 (4) Seizure disorder ICD Codes: G40.909 - Epilepsy, unspecified, not intractable, without status epilepticus SNOMED: 127295665 Assessment/Plan IV abx pederson culturee ID evaluation f/u electrolytes. BALDEV TRENT Dec 26, 2016 21:53
--- NOTE | 2016-12-26 21:53 | Pulmonology Progress Note ---
Assessment/Plan Problems: (1) Seizure disorder (2) Status post CVA (3) Cellulitis of right foot (4) Renal insufficiency Assessment/Plan improving check wbc check cultures neuero and ID evaluation Subjective ROS Limited/Unobtainable: No Constitutional: Reports: no symptoms HEENT: Repors: no symptoms Respiratory: Reports: no symptoms Allergies: Coded Allergies: NO KNOWN ALLERGIES (Unverified Allergy, Unknown, 02/08/15) Objective Last 24 Hour Vital Signs Date Time Temp Pulse Resp B/P (MAP) Pulse Ox O2 Delivery O2 Flow Rate FiO2 12/26/16 20:01 97.5 12/26/16 19:44 79 16 Room Air 21 12/26/16 19:26 97.5 85 20 107/69 92 Room Air 12/26/16 16:04 97.7 90 20 133/88 98 Room Air 12/26/16 12:00 97.7 81 18 101/68 99 Room Air 12/26/16 08:51 98.1 89 18 124/74 94 Room Air 12/26/16 03:30 97.6 56 19 127/68 96 Room Air 12/26/16 00:05 97.6 102 19 142/92 98 Room Air Intake and Output 12/26/16 12/27/16 19:00 07:00 Intake Total 490.000 ml Output Total 600 ml Balance -110.000 ml Intake Oral 240 ml IV Total 250.000 ml Output Urine Total 600 ml General Appearance: WD/WN HEENT: normocephalic, anicteric Respiratory/Chest: chest wall non-tender, lungs clear Cardiovascular: normal peripheral pulses, normal rate Abdomen: normal bowel sounds, soft, non tender Skin: no lesions 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 Microbiology Date/Time Source Procedure Growth Status 12/25/16 14:40 Urine,Clean Catch Urine Culture - Preliminary Resulted Laboratory Tests 12/26/16 04:50: White Blood Count 7.6, Red Blood Count 2.94L, Hemoglobin 9.3L, Hematocrit 28.9L , Mean Corpuscular Volume 99, Mean Corpuscular Hemoglobin 31.6H, Mean Corpuscular Hemoglobin Concent 32.1, Red Cell Distribution Width 14.2, Platelet Count 243, Mean Platelet Volume 5.7L, Neutrophils (%) (Auto) 55.4, Lymphocytes ( %) (Auto) 35.6, Monocytes (%) (Auto) 7.6, Eosinophils (%) (Auto) 1.1, Basophils (%) (Auto) 0.3, Sodium Level 149H, Potassium Level 4.0, Chloride Level 114H, Carbon Dioxide Level 28, Anion Gap 7, Blood Urea Nitrogen 21H, Creatinine 1.5H, Estimat Glomerular Filtration Rate 49.7, Glucose Level 69L, Calcium Level 9.3, Total Bilirubin 0.3, Aspartate Amino Transf (AST/SGOT) 54H, Alanine Aminotransferase (ALT/SGPT) 156H, Alkaline Phosphatase 447H, Total Protein 7.4, Albumin 1.9L, Globulin 5.5, Albumin/Globulin Ratio 0.3L Current Medications Medications (Trade) Dose Ordered Sig/Ludy Route PRN Reason Start Time Stop Time Status Last Admin Dose Admin Acetaminophen (Tylenol) 650 mg Q4H PRN ORAL Mild Pain/Temp > 100.5 12/26/16 08:00 01/25/17 07:59 12/26/16 19:02 Albuterol/ Ipratropium (DuoNeb 0.5-3(2.5)mg/3ml) 3 ml EVERY 4 HOURS PRN HHN Shortness of Breath 12/25/16 18:00 12/30/16 17:59 Cefazolin Sodium 1 gm/Dextrose 55 ml @ 110 mls/hr EVERY 8 HOURS IVPB 12/26/16 15:00 01/02/17 14:59 12/26/16 21:38 Dextrose (Dextrose 50%) STAT PRN IV Hypoglycemia 12/25/16 18:00 01/24/17 17:59 Divalproex Sodium (Depakote ER) 500 mg EVERY 12 HOURS ORAL 12/25/16 21:00 01/24/17 20:59 12/26/16 20:32 Doxycycline Monohydrate (Vibramycin) 100 mg EVERY 12 HOURS ORAL 12/26/16 14:00 01/02/17 13:59 12/26/16 20:34 Gabapentin (Neurontin) 100 mg THREE TIMES A DAY ORAL 12/25/16 18:00 01/24/17 17:59 12/26/16 17:13 Heparin Sodium (Porcine) (Heparin 5000 units/ml) 5,000 units EVERY 12 HOURS SUBQ 12/25/16 21:00 01/24/17 20:59 12/26/16 20:37 Levetiracetam (Keppra) 1,500 mg EVERY 12 HOURS ORAL 12/25/16 21:00 01/24/17 20:59 12/26/16 20:33 Lorazepam (Ativan) 1 mg Q6H PRN ORAL For Anxiety 12/25/16 18:00 01/01/17 17:59 12/26/16 19:02 Morphine Sulfate (Morphine Sulfate) 2 mg EVERY 4 HOURS PRN IVP Moderate Pain (Pain Scale 4-6) 12/25/16 18:00 01/01/17 17:59 12/26/16 17:13 Nitroglycerin (Ntg) 0.4 mg Q5MIN X3 PRN SL Prn Chest Pain 12/25/16 18:00 01/24/17 17:59 Ondansetron HCl (Zofran) 4 mg Q6H PRN IVP Nausea & Vomiting 12/25/16 18:00 01/24/17 17:59 Phenobarbital (PHENobarbital) 64.8 mg Q12HR ORAL 12/25/16 21:00 01/24/17 20:59 12/26/16 20:33 Polyethylene Glycol (Miralax) 17 gm DAILYPRN PRN ORAL Constipation 12/25/16 18:00 01/24/17 17:59 Risperidone (RisperDAL) 1 mg BEDTIME ORAL 12/25/16 21:00 01/24/17 20:59 12/26/16 20:42 Temazepam (Restoril) 15 mg HSPRN PRN ORAL Insomnia 12/25/16 21:00 01/01/17 20:59 BALDEV TRENT Dec 26, 2016 21:53
[2016-12-27 03:32] VITALS: BP 113/76
[2016-12-27] MEDS: ceFAZolin 1gm in D5W 55ml IVPB SCH ×3 (05:00→21:45)
[2016-12-27] MEDS: PHENobarbital 32.4mg tab ORAL SCH ×2 (08:45→21:41)
--- NOTE | 2016-12-27 08:46 | Cardiology Report ---
APPROVED REPORT EKG Measurement Heart [id number] Sinus tachycardia Left axis deviation Abnormal ECG
[2016-12-27] MEDS: Heparin 5000 units/ml inj SUBQ SCH ×2 (08:49→21:45)
[2016-12-27] MEDS: Depakote ER 500mg tab ORAL SCH (08:49)
[2016-12-27] MEDS ORDERED: ceFAZolin 1gm/50ml Premix 50 ML IV SCH (09:00)
[2016-12-27] MEDS: LORazepam 1mg tab ORAL PRN ×2 (09:42→17:08)
[2016-12-27] MEDS: Morphine Sulfate 2mg/ml Inj IVP PRN ×3 (10:59→23:42)
--- NOTE | 2016-12-27 10:59 | Neurology Progress Note ---
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 (2) chronic seizure disorder, refractory (3) transaminitis, r/o depakote induced vs hepatitis (4) Cellulitis of right foot (5) Renal insufficiency Status: stable Recommendations # [id number] ERIC LAW Dec 27, 2016 10:59
--- NOTE | 2016-12-27 11:02 | Neurology Progress Note ---
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 (2) chronic seizure disorder, refractory (3) transaminitis, r/o depakote induced vs hepatitis (4) Cellulitis of right foot (5) Renal insufficiency Status: stable Recommendations # [id number] ERIC LAW Dec 27, 2016 11:02
--- NOTE | 2016-12-27 11:45 | Infectious Diseases Prog Note ---
Assessment/Plan Assessment/Plan Assessment/Plan Abx: IV Vanco/Cefepime 12/25-12/26 IV Ancef, PO doxy 12/26- Assesment: R leg/foot cellulitis- erythematous plaque lesions (unclear etiology)-? related to cellulitis, petechial-like, ? 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 Will continue to follow along with you. Discussed with RN. Subjective Allergies: Coded Allergies: NO KNOWN ALLERGIES (Unverified Allergy, Unknown, 02/08/15) Subjective afebriel Objective Vital Signs Last 24 Hour Vital Signs Date Time Temp Pulse Resp B/P (MAP) Pulse Ox O2 Delivery O2 Flow Rate FiO2 12/27/16 07:36 80 20 Room Air 12/27/16 03:32 96.3 79 20 113/76 Room Air 12/26/16 20:01 97.5 12/26/16 19:44 79 16 Room Air 21 12/26/16 19:26 97.5 85 20 107/69 92 Room Air 12/26/16 16:04 97.7 90 20 133/88 98 Room Air 12/26/16 12:00 97.7 81 18 101/68 99 Room Air Height (Feet): 5 Height (Inches): 9.00 Weight (Pounds): 150 Objective General Appearance: well appearing, no apparent distress HEENT: bilateral eye PERRL, dry mucus membranes Neck: supple Respiratory: lungs clear, normal breath sounds Cardiovascular : no murmur, tachycardia, edema - RLE 1-2+ Gastrointestinal: normal inspection, normal bowel sounds, non tender, no mass, non-distended, other - G tube Musculoskeletal: back normal, other - R flexor contractures UE and extensor contractures LE Neurologic: alert, responsive, motor weakness - R hemiparesis, other - yes and no answers Psychiatric: mood/affect normal Skin: warm/dry, other - erythema R dorsum of foot extending to distal leg with erythematous plaques dorsum near ankle Microbiology Date/Time Source Procedure Growth Status 12/25/16 14:10 Blood Blood Culture - Preliminary NO GROWTH AFTER 24 HOURS Resulted 12/25/16 14:10 Blood Blood Culture - Preliminary NO GROWTH AFTER 24 HOURS Resulted 12/25/16 15:00 Nasal Nares MRSA Culture - Final Staphylococcus Aureus - Mrsa Complete 12/25/16 14:40 Urine,Clean Catch Urine Culture - Preliminary Gram Negative Bacillus 1 Resulted 12/25/16 15:00 Rectum VRE Culture - Final NO VANCOMYCIN RESISTANT ENTEROCOCCUS ... Complete Laboratory Tests Test 12/27/16 05:15 Rapid Plasma Reagin Pending Coccidioides Antibody (Comp Fix) Pending HIV (1&2) Antibody Rapid Negative (NEGATIVE) Current Medications Medications (Trade) Dose Ordered Sig/Lduy Route PRN Reason Start Time Stop Time Status Last Admin Dose Admin Acetaminophen (Tylenol) 650 mg Q4H PRN ORAL Mild Pain/Temp > 100.5 12/26/16 08:00 01/25/17 07:59 12/26/16 19:02 Albuterol/ Ipratropium (DuoNeb 0.5-3(2.5)mg/3ml) 3 ml EVERY 4 HOURS PRN HHN Shortness of Breath 12/25/16 18:00 12/30/16 17:59 Cefazolin Sodium 1 gm/Dextrose 55 ml @ 110 mls/hr EVERY 8 HOURS IVPB 12/26/16 15:00 01/02/17 14:59 12/27/16 05:00 Dextrose (Dextrose 50%) STAT PRN IV Hypoglycemia 12/25/16 18:00 01/24/17 17:59 Doxycycline Monohydrate (Vibramycin) 100 mg EVERY 12 HOURS ORAL 12/26/16 14:00 01/02/17 13:59 12/27/16 08:49 Heparin Sodium (Porcine) (Heparin 5000 units/ml) 5,000 units EVERY 12 HOURS SUBQ 12/25/16 21:00 01/24/17 20:59 12/27/16 08:49 Levetiracetam (Keppra) 1,500 mg EVERY 12 HOURS ORAL 12/25/16 21:00 01/24/17 20:59 12/27/16 08:48 Lorazepam (Ativan) 1 mg Q6H PRN ORAL For Anxiety 12/25/16 18:00 01/01/17 17:59 12/27/16 09:42 Morphine Sulfate (Morphine Sulfate) 2 mg EVERY 4 HOURS PRN IVP Moderate Pain (Pain Scale 4-6) 12/25/16 18:00 01/01/17 17:59 12/27/16 10:59 Nitroglycerin (Ntg) 0.4 mg Q5MIN X3 PRN SL Prn Chest Pain 12/25/16 18:00 01/24/17 17:59 Ondansetron HCl (Zofran) 4 mg Q6H PRN IVP Nausea & Vomiting 12/25/16 18:00 01/24/17 17:59 Phenobarbital (PHENobarbital) 64.8 mg Q12HR ORAL 12/25/16 21:00 01/24/17 20:59 12/27/16 08:45 Polyethylene Glycol (Miralax) 17 gm DAILYPRN PRN ORAL Constipation 12/25/16 18:00 01/24/17 17:59 Risperidone (RisperDAL) 1 mg BEDTIME ORAL 12/25/16 21:00 01/24/17 20:59 12/26/16 20:42 Temazepam (Restoril) 15 mg HSPRN PRN ORAL Insomnia 12/25/16 21:00 01/01/17 20:59 12/27/16 01:23 Nataliia Alfaro M.D. Dec 27, 2016 11:45
[2016-12-27 12:00] VITALS: BP 118/63
--- NOTE | 2016-12-27 12:48 | Diagnostic Imaging Report ---
Indications: Altered mental status Technique: Spiral acquisitions obtained through the brain. Angled axial and coronal 5 x 5 mm slices were reconstructed. Total dose length product 1407 mGycm. CTDI vol(s) 70 mGy. Dose reduction achieved using automated exposure control Comparison: None Findings: There is a large left convexity craniotomy/craniectomy defect, extending into the floor of the middle fossa. There are left-sided supraclinoid aneurysm clips, and a second aneurysm clip is seen in the expected region of the left posterior artery bifurcation. There is extensive cystic encephalomalacia of most of the left temporal and parietal lobes as well as a portion of the posterior frontal lobe. There is marked ex vacuo dilatation of the left lateral ventricle as a result. There is leftward midline shift which appears to be an ex vacuo phenomenon rather than due to mass effect. No acute hemorrhage or edema. There is mild enlargement of the right lateral ventricle. There is some periventricular deep white matter ischemic change on the right. The orbits and sinuses are unremarkable. Impression: Evidence of prior left craniotomy/craniectomy and clipping of multiple aneurysms Extensive left convexity encephalomalacia in a middle cerebral artery distribution, suspect related to the above Negative for acute intracranial bleed or mass effect The CT scanner at [facility] is accredited by the [employer] and the scans are performed using protocols designed to limit radiation exposure to as low as reasonably achievable to attain images of sufficient resolution adequate for diagnostic evaluation.
[2016-12-27 16:00] VITALS: BP 108/65
--- NOTE | 2016-12-27 16:27 | Pulmonology Progress Note ---
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 (4) Seizure disorder Assessment/Plan improving check cultures f/u ID recommendations Subjective ROS Limited/Unobtainable: No Constitutional: Reports: no symptoms HEENT: Repors: no symptoms Respiratory: Reports: no symptoms Allergies: Coded Allergies: NO KNOWN ALLERGIES (Unverified Allergy, Unknown, 02/08/15) Objective Last 24 Hour Vital Signs Date Time Temp Pulse Resp B/P (MAP) Pulse Ox O2 Delivery O2 Flow Rate FiO2 12/27/16 16:00 98.4 91 18 108/65 98 Room Air 12/27/16 15:30 97.4 12/27/16 12:00 97.4 68 17 118/63 Room Air 12/27/16 07:36 80 20 Room Air 21 12/27/16 03:32 96.3 79 20 113/76 Room Air 12/26/16 20:01 97.5 12/26/16 19:44 79 16 Room Air 21 12/26/16 19:26 97.5 85 20 107/69 92 Room Air Intake and Output 12/27/16 12/28/16 19:00 07:00 Intake Total 120 ml Output Total 850 ml Balance -730 ml Intake Oral 120 ml Output Urine Total 850 ml # Voids 2 General Appearance: WD/WN HEENT: normocephalic Respiratory/Chest: chest wall non-tender, lungs clear Cardiovascular: normal peripheral pulses, normal rate Abdomen: normal bowel sounds, soft, non tender Genitourinary: normal external genitalia Skin: no lesions Neurologic/Psychiatric: movers II-XII 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 Complete Laboratory Tests 12/27/16 05:15: Rapid Plasma Reagin [Pending], Coccidioides Antibody (Comp Fix) [Pending], HIV ( 1&2) Antibody Rapid Negative Current Medications Medications (Trade) Dose Ordered Sig/Ludy Route PRN Reason Start Time Stop Time Status Last Admin Dose Admin Acetaminophen (Tylenol) 650 mg Q4H PRN ORAL Mild Pain/Temp > 100.5 12/26/16 08:00 01/25/17 07:59 12/26/16 19:02 Albuterol/ Ipratropium (DuoNeb 0.5-3(2.5)mg/3ml) 3 ml EVERY 4 HOURS PRN HHN Shortness of Breath 12/25/16 18:00 12/30/16 17:59 Cefazolin Sodium 1 gm/Dextrose 55 ml @ 110 mls/hr EVERY 8 HOURS IVPB 12/26/16 15:00 01/02/17 14:59 12/27/16 13:49 Dextrose (Dextrose 50%) STAT PRN IV Hypoglycemia 12/25/16 18:00 01/24/17 17:59 Doxycycline Monohydrate (Vibramycin) 100 mg EVERY 12 HOURS ORAL 12/26/16 14:00 01/02/17 13:59 12/27/16 08:49 Heparin Sodium (Porcine) (Heparin 5000 units/ml) 5,000 units EVERY 12 HOURS SUBQ 12/25/16 21:00 01/24/17 20:59 12/27/16 08:49 Levetiracetam (Keppra) 1,500 mg EVERY 12 HOURS ORAL 12/25/16 21:00 01/24/17 20:59 12/27/16 08:48 Lorazepam (Ativan) 1 mg Q6H PRN ORAL For Anxiety 12/25/16 18:00 01/01/17 17:59 12/27/16 09:42 Morphine Sulfate (Morphine Sulfate) 2 mg EVERY 4 HOURS PRN IVP Moderate Pain (Pain Scale 4-6) 12/25/16 18:00 01/01/17 17:59 12/27/16 15:00 Nitroglycerin (Ntg) 0.4 mg Q5MIN X3 PRN SL Prn Chest Pain 12/25/16 18:00 01/24/17 17:59 Ondansetron HCl (Zofran) 4 mg Q6H PRN IVP Nausea & Vomiting 12/25/16 18:00 01/24/17 17:59 Phenobarbital (PHENobarbital) 64.8 mg Q12HR ORAL 12/25/16 21:00 01/24/17 20:59 12/27/16 08:45 Polyethylene Glycol (Miralax) 17 gm DAILYPRN PRN ORAL Constipation 12/25/16 18:00 01/24/17 17:59 Risperidone (RisperDAL) 1 mg BEDTIME ORAL 12/25/16 21:00 01/24/17 20:59 12/26/16 20:42 Temazepam (Restoril) 15 mg HSPRN PRN ORAL Insomnia 12/25/16 21:00 01/01/17 20:59 12/27/16 01:23 BALDEV TRENT Dec 27, 2016 16:27
--- NOTE | 2016-12-27 16:45 | Consultation ---
DATE OF CONSULTATION: 12/27/2016 NEUROLOGICAL CONSULTATION CONSULTING PHYSICIAN: Alejandro Grey M.D. ATTENDING PHYSICIAN: Shine Ferrer M.D. REFERRING PHYSICIAN: Shine Ferrer M.D. HISTORY OF PRESENT ILLNESS: This is a 51-year-old man seen in neurological consultation to evaluate the exacerbation of seizure activities. The patient has chronic seizure disorder and was noted to have intermittent shaking and twitching of the right foot. The patient is now admitted for increased edema and erythema of right lower extremity compatible with cellulitis. There was a previous fracture of right ankle diagnosed in 2016. The patient has history of history of left parietal craniotomy with right hemiplegia and expressive aphasia apparently after ruptured aneurysm with intracranial hemorrhage. He developed chronic seizure disorder refractory and required multiple anticonvulsants. Following current admission, lab work was obtained. This revealed hemoglobin 10.7 and hematocrit 33.7. Coagulation panel was normal. Urinalysis with 10-30 WBCs, 3+ leukocyte esterase, 2+ protein. Chemistry panel with phenobarbital level of 20.9. Chemistry panel, elevated sodium 147, chloride 110, elevated BUN of 28, creatinine 1.6. Elevated liver function with AST 73, ALT 215, alkaline phosphatase 474. Elevated BNP 254. Low albumin 1.9. CBC study with hemoglobin 9.3, hematocrit 28.9. X-ray of right fibula and tibia, no acute process noted. Chest x-ray, no acute process noted, hypoventilatory examination, bilateral basilar atelectasis. X-ray of right foot, no acute process. Venous duplex of both lower extremities, no evidence of thrombi. PAST MEDICAL HISTORY: History of ischemic heart disease, chronic anemia, ruptured aneurysm, right hemiplegia, and chronic seizure disorder. MEDICATIONS: Treatment list prior to admission included: 1. Depakote 500 mg b.i.d. 2. Gabapentin 100 mg t.i.d. 3. Lactulose. 4. Keppra 1500 mg b.i.d. 5. Lorazepam as needed. 6. hydroxide. 7. Phenobarbital. 8. Risperdal 1 mg b.i.d. 9. Tramadol as needed. 10. Zolpidem. ALLERGIES: None reported. SOCIAL HISTORY: Resident of a convalescent facility. There is no evidence of previous alcohol or drug abuse. FAMILY HISTORY: Unavailable. PHYSICAL EXAMINATION: GENERAL: A well-developed, somewhat ill-appearing man, somewhat restless, with a sitter next to his bed. VITAL SIGNS: His vital signs now are unstable. Blood pressure 113/76, temperature 96.3. HEENT: Head normocephalic. There is a post craniotomy defect in left parietal region. NECK: Supple. No meningeal signs. MUSCULOSKELETAL: Swelling, redness, and tenderness in right ankle and right foot region. MENTAL STATUS: The patient is alert, has good eye contact. He is able to follow few simple commands given in [place]ian. He is aphasic, continuously repeating . CRANIAL NERVE II: Pupils both responding to light and accommodation. Extraocular movement intact. No nystagmus. Visual collins with right hemianopia. CRANIAL NERVE V: Normal corneal responses. CRANIAL NERVE VII: Drooped right nasolabial fold. CRANIAL NERVE VIII: Normal hearing. CRANIAL NERVES IX THROUGH XII: Tongue is in midline. Symmetric palate elevation. MOTOR EXAMINATION: Spastic right upper and right lower extremity with no spontaneous movement, deep tendon reflexes 3+ on the right and 1+ on the left. Positive Babinski on the right. SENSORY EXAMINATION: No response to pin stimulation. Unable to sit or stand. IMPRESSION: 1. 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 2. Chronic seizure disorder, rule out exacerbation. 3. Abnormal liver enzymes, question hepatitis, question drug-induced secondary to Depakote. 4. History of coronary artery disease. 5. Right foot cellulitis. 6. Renal insufficiency. RECOMMENDATION: 1. Baseline CT of the brain. 2. EEG to rule out ongoing seizure activities. 3. Discontinue Depakote due to transaminitis. 4. Maintain on phenobarbital and Keppra. 5. Continue with IV fluids and antibiotics. 6. Ativan 1 mg q.2 hours p.r.n. seizure or severe anxiety. Thank you for allowing me to see this interesting patient in neurological consultation. Alejandro Grey M.D. DR: Gloria JOB#: [id number] CC:
--- NOTE | 2016-12-27 19:47 | Consultation ---
History of Present Illness General Chief Complaint: Edema Reason for Consultation: Cellulitis Present Illness HPI 51-year-old man with seizure activities. The patient i admitted for increased edema and erythema of right lower extremity compatible with cellulitis. There was a previous fracture of right ankle diagnosed in 2016. The patient has history of history of left parietal craniotomy with right hemiplegia and expressive aphasia apparently after ruptured aneurysm with intracranial hemorrhage. He developed chronic seizure disorder refractory and required multiple anticonvulsants. the pt was agitated this morning, during the eval the pt was confused and disorganized Allergies: Coded Allergies: NO KNOWN ALLERGIES (Unverified Allergy, Unknown, 02/08/15) Medication History Scheduled Divalproex Sodium* (Depakote Er*), 500 MG ORAL EVERY 12 HOURS, (Reported) Docusate Sodium* (Colace*), 100 MG ORAL DAILY, (Reported) Ferrous Sulfate (Ferrous Sulfate), 325 MG ORAL BID, (Reported) Gabapentin* (Neurontin*), 100 MG ORAL THREE TIMES A DAY, (Reported) Levetiracetam (Keppra), 1,500 MG ORAL EVERY 12 HOURS, (Reported) Phenobarbital (Phenobarbital), 64.8 MG ORAL Q12HR, (Reported) Phenobarbital* (Phenobarbital*), 64.8 MG ORAL BID, (Reported) Risperidone* (Risperdal*), 1 MG PO BIDAC, (Reported) Valproate Sodium (Depakene), 500 MG PO BID, (Reported) Scheduled PRN Acetaminophen (Tylenol), 650 MG ORAL Q4HR PRN for Fever/Headache/Mild Pain, ( Reported) Al Hydroxide/mg Hydroxide (Mag-Al Liquid), 30 ML PO Q4HR PRN for For Pain, ( Reported) Hydrocodone Bit/Acetaminophen 5-325* (Burt 5-325 Tablet*), 1 TAB ORAL Q6HR PRN for For Pain, (Reported) Lorazepam* (Lorazepam*), 1 MG ORAL Q6HR PRN for For Anxiety, (Reported) Magnesium Hydroxide (Milk of Magnesia), 30 ML ORAL Q6HR PRN for Constipation, ( Reported) Tramadol Hcl* (Ultram*), 50 MG ORAL Q6H PRN for For Pain, (Reported) Zolpidem Tartrate* (Ambien*), 5 MG ORAL BEDTIME PRN for Insomnia, (Reported) Miscellaneous Medications Lactulose (Lactulose*), 30 ML ORAL, (Reported) Patient History Limited by: medical condition History Provided By: Patient, Medical Record, PMD Healthcare decision maker Resuscitation status Full Code Advanced Directive on File Past Medical/Surgical History Past Medical/Surgical History: (1) Hypernatremia (2) Renal insufficiency (3) UTI (urinary tract infection) (4) Cellulitis of right foot (5) Status post CVA (6) 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 (7) chronic seizure disorder, refractory (8) transaminitis, r/o depakote induced vs hepatitis (9) Seizure disorder Review of Systems Psychiatric: Reports: prior hx, anxiety, depressed feelings, emotional problems Physical Exam General Appearance: alert, confused, agitated, thin Neurologic: alert, disoriented, unresponsiveness - cv, depressed affect Last 24 Hour Vital Signs Date Time Temp Pulse Resp B/P (MAP) Pulse Ox O2 Delivery O2 Flow Rate FiO2 12/27/16 16:00 98.4 91 18 108/65 98 Room Air 12/27/16 15:30 97.4 12/27/16 12:00 97.4 68 17 118/63 Room Air 12/27/16 07:36 80 20 Room Air 21 12/27/16 03:32 96.3 79 20 113/76 Room Air 12/26/16 20:01 97.5 12/26/16 19:44 79 16 Room Air 21 Intake and Output 12/27/16 12/28/16 19:00 07:00 Intake Total 470 ml Output Total 1800 ml Balance -1330 ml Intake Oral 470 ml Output Urine Total 1800 ml # Voids 4 Laboratory Tests Test 12/27/16 05:15 Rapid Plasma Reagin Pending Coccidioides Antibody (Comp Fix) Pending HIV (1&2) Antibody Rapid Negative (NEGATIVE) Height (Feet): 5 Height (Inches): 9.00 Weight (Pounds): 150 Medications Current Medications Medications (Trade) Dose Ordered Sig/Ludy Route PRN Reason Start Time Stop Time Status Last Admin Dose Admin Acetaminophen (Tylenol) 650 mg Q4H PRN ORAL Mild Pain/Temp > 100.5 12/26/16 08:00 01/25/17 07:59 12/26/16 19:02 Albuterol/ Ipratropium (DuoNeb 0.5-3(2.5)mg/3ml) 3 ml EVERY 4 HOURS PRN HHN Shortness of Breath 12/25/16 18:00 12/30/16 17:59 Cefazolin Sodium 1 gm/Dextrose 55 ml @ 110 mls/hr EVERY 8 HOURS IVPB 12/26/16 15:00 01/02/17 14:59 12/27/16 13:49 Dextrose (Dextrose 50%) STAT PRN IV Hypoglycemia 12/25/16 18:00 01/24/17 17:59 Doxycycline Monohydrate (Vibramycin) 100 mg EVERY 12 HOURS ORAL 12/26/16 14:00 01/02/17 13:59 12/27/16 08:49 Heparin Sodium (Porcine) (Heparin 5000 units/ml) 5,000 units EVERY 12 HOURS SUBQ 12/25/16 21:00 01/24/17 20:59 12/27/16 08:49 Levetiracetam (Keppra) 1,500 mg EVERY 12 HOURS ORAL 12/25/16 21:00 01/24/17 20:59 12/27/16 08:48 Lorazepam (Ativan) 1 mg Q6H PRN ORAL For Anxiety 12/25/16 18:00 01/01/17 17:59 12/27/16 17:08 Morphine Sulfate (Morphine Sulfate) 2 mg EVERY 4 HOURS PRN IVP Moderate Pain (Pain Scale 4-6) 12/25/16 18:00 01/01/17 17:59 12/27/16 15:00 Nitroglycerin (Ntg) 0.4 mg Q5MIN X3 PRN SL Prn Chest Pain 12/25/16 18:00 01/24/17 17:59 Ondansetron HCl (Zofran) 4 mg Q6H PRN IVP Nausea & Vomiting 12/25/16 18:00 01/24/17 17:59 Phenobarbital (PHENobarbital) 64.8 mg Q12HR ORAL 12/25/16 21:00 01/24/17 20:59 12/27/16 08:45 Polyethylene Glycol (Miralax) 17 gm DAILYPRN PRN ORAL Constipation 12/25/16 18:00 01/24/17 17:59 Risperidone (RisperDAL) 1 mg BEDTIME ORAL 12/25/16 21:00 01/24/17 20:59 12/26/16 20:42 Temazepam (Restoril) 15 mg HSPRN PRN ORAL Insomnia 12/25/16 21:00 01/01/17 20:59 12/27/16 01:23 Assessment/Plan Status: stable Assessment/Plan craniotomy cognitive impairment agitation -depakote as mood stabilizer/anticonvulsant -dc risperdal -start Candido Bailey M.D. Dec 27, 2016 19:47
[2016-12-27 20:00] VITALS: BP 96/57
[2016-12-27 23:43] VITALS: BP 131/84
[2016-12-28] MEDS: LORazepam 1mg tab ORAL PRN (01:59)
[2016-12-28 04:57] VITALS: BP 97/68
[2016-12-28] MEDS: ceFAZolin 1gm in D5W 55ml IVPB SCH ×3 (05:29→21:11)
[2016-12-28 08:00] VITALS: BP 120/76
[2016-12-28 08:34] LABS: BASOPHILS % (AUTO) 0.4 % (0.0-2.0); LYMPHOCYTES % (AUTO) 25.9 % (20.0-45.0); MEAN CORPUSCULAR HEMOGLOBIN 31.8 PG (27.0-31.0); MEAN CORPUSCULAR HGB CONC 32.4 G/DL (32.0-36.0); MEAN CORPUSCULAR VOLUME 98 FL (80-99); MEAN PLATELET VOLUME 5.5 FL (6.5-10.1); NEUTROPHILS % (AUTO) 66.7 % (45.0-75.0); PLATELET COUNT 399 K/UL (150-450); RED BLOOD COUNT 2.99 M/UL (4.70-6.10); RED CELL DISTRIBUTION WIDTH 13.9 % (11.6-14.8); WHITE BLOOD COUNT 10.3 K/UL (4.8-10.8)
--- NOTE | 2016-12-28 08:59 | Diagnostic Imaging Report ---
APPROVED REPORT CPT Code: 91032 Present Symptoms Comments: R/O DVT BILATERAL: Imaging reveals a patent deep venous system bilaterally. There is no evidence of thrombus within the femoral, popliteal or tibial segments. The greater saphenous veins are also within normal limits. Doppler indicates normal spontaneous flow within these segments.
[2016-12-28] MEDS: Heparin 5000 units/ml inj SUBQ SCH ×2 (09:00→21:16)
[2016-12-28 09:01] LABS: ALANINE AMINOTRANSFERASE 100 U/L (12-78); ALBUMIN/GLOBULIN RATIO 0.4 (1.0-2.7); ANION GAP 10 mmol/L (5-15); ASPARTATE AMINO TRANSFERASE 55 U/L (15-37); CALCIUM 9.5 MG/DL (8.5-10.1); CARBON DIOXIDE 29 MMOL/L (21-32); CHLORIDE 109 MMOL/L (98-107); CREATININE 1.5 MG/DL (0.55-1.30); CRP QUANT 14.7 mg/dL (0.00-0.90); GLOMERULAR FILTRATION RATE 49.7 mL/min (>60); MAGNESIUM 2.1 MG/DL (1.8-2.4); PHOSPHORUS 3.6 MG/DL (2.5-4.9); POTASSIUM 3.8 MMOL/L (3.5-5.1); SODIUM 148 MMOL/L (136-145); TOTAL PROTEIN 8.4 G/DL (6.4-8.2)
[2016-12-28 09:47] LABS: ERYTHROCYTE SEDIMENTATION RATE 125 MM/HR (0-15)
[2016-12-28] MEDS: PHENobarbital 32.4mg tab ORAL SCH ×2 (10:02→21:10)
[2016-12-28] MEDS: Morphine Sulfate 2mg/ml Inj IVP PRN ×2 (10:15→16:18)
--- NOTE | 2016-12-28 12:39 | Infectious Diseases Prog Note ---
Assessment/Plan Assessment/Plan Assessment/Plan Abx: IV Vanco/Cefepime 12/25-12/26 IV Ancef, PO doxy 12/26- Assesment: R leg/foot cellulitis- erythematous plaque lesions (unclear etiology)-? related to cellulitis, petechial-like, ? vasculitis, zoonotic related -xray R foot/tibia/fibula-: no acute process -venous duplex BLE: no DVT -BCx NTD -HIV ag/ab neg Afebrile, no leukocytosis Pyuria/bacteriuria- assymptomatic -u/a WBC 20-30; uCx >100K P.mirabilis (S. Ancef) ADOLFO, improving Transaminitis, improving- r/p chronic viral hepatitis MRSA colonized 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, s/p GT, anemia, s/p leg fracture 2014, non verbal (expressive aphasia), chronic contractures Plan: -Continue IV Ancef and Doxycycline #3 (Abx d#06/13-); upon discharge PO keflex and Doxycycline -s/p 2d IV Vanco/Cefepime 12/26 -Monitor erythematous plaques on R foot- if not improving/worsening, consider skin biopsy -f/u HIV ag/ab, RPR, cocci ab, hep serologies - trend LFTs -f/u cx -Monitor CBC/CMP, temperatures -leg elevation Thank you for this consultation. Will continue to follow along with you. Discussed with RN. Subjective Allergies: Coded Allergies: NO KNOWN ALLERGIES (Unverified Allergy, Unknown, 02/08/15) Subjective afebriel Objective Vital Signs Last 24 Hour Vital Signs Date Time Temp Pulse Resp B/P (MAP) Pulse Ox O2 Delivery O2 Flow Rate FiO2 12/28/16 08:00 97.7 86 19 120/76 95 Room Air 12/28/16 07:03 86 18 Room Air 12/28/16 04:57 97.9 86 20 97/68 93 Room Air 12/27/16 23:43 98.4 107 20 131/84 94 Room Air 12/27/16 21:15 90 18 Room Air 21 12/27/16 20:00 99.1 101 20 96/57 93 Room Air 12/27/16 16:00 98.4 91 18 108/65 98 Room Air 10/24/17 15:30 97.4 Height (Feet): 5 Height (Inches): 9.00 Weight (Pounds): 150 Objective General Appearance: well appearing, no apparent distress HEENT: bilateral eye PERRL, dry mucus membranes Neck: supple Respiratory: lungs clear, normal breath sounds Cardiovascular : no murmur, tachycardia, edema - RLE 1-2+ Gastrointestinal: normal inspection, normal bowel sounds, non tender, no mass, non-distended, other - G tube Musculoskeletal: back normal, other - R flexor contractures UE and extensor contractures LE Neurologic: alert, responsive, motor weakness - R hemiparesis, other - yes and no answers Psychiatric: mood/affect normal Skin: warm/dry, other - erythema R dorsum of foot extending to distal leg with erythematous plaques dorsum near ankle; improving Microbiology Date/Time Source Procedure Growth Status 12/25/16 14:10 Blood Blood Culture - Preliminary NO GROWTH AFTER 48 HOURS Resulted 12/25/16 14:10 Blood Blood Culture - Preliminary NO GROWTH AFTER 48 HOURS Resulted 12/25/16 15:00 Nasal Nares MRSA Culture - Final Staphylococcus Aureus - Mrsa Complete 12/25/16 14:40 Urine,Clean Catch Urine Culture - Final Proteus Mirabilis Complete 12/25/16 15:00 Rectum VRE Culture - Final NO VANCOMYCIN RESISTANT ENTEROCOCCUS ... Complete Laboratory Tests Test 12/28/16 07:10 White Blood Count 10.3 K/UL (4.8-10.8) Red Blood Count 2.99 M/UL (4.70-6.10) L Hemoglobin 9.5 G/DL (14.2-18.0) L Hematocrit 29.3 % (42.0-52.0) L Mean Corpuscular Volume 98 FL (80-99) Mean Corpuscular Hemoglobin 31.8 PG (27.0-31.0) H Mean Corpuscular Hemoglobin Concent 32.4 G/DL (32.0-36.0) Red Cell Distribution Width 13.9 % (11.6-14.8) Platelet Count 399 K/UL (150-450) Mean Platelet Volume 5.5 FL (6.5-10.1) L Neutrophils (%) (Auto) 66.7 % (45.0-75.0) Lymphocytes (%) (Auto) 25.9 % (20.0-45.0) Monocytes (%) (Auto) 6.0 % (1.0-10.0) Eosinophils (%) (Auto) 1.0 % (0.0-3.0) Basophils (%) (Auto) 0.4 % (0.0-2.0) Erythrocyte Sedimentation Rate 125 MM/HR (0-15) H Sodium Level 148 MMOL/L (136-145) H Potassium Level 3.8 MMOL/L (3.5-5.1) Chloride Level 109 MMOL/L (98-107) H Carbon Dioxide Level 29 MMOL/L (21-32) Anion Gap 10 mmol/L (5-15) Blood Urea Nitrogen 18 mg/dL (7-18) Creatinine 1.5 MG/DL (0.55-1.30) H Estimat Glomerular Filtration Rate 49.7 mL/min (>60) Glucose Level 76 MG/DL (74-106) Calcium Level 9.5 MG/DL (8.5-10.1) Phosphorus Level 3.6 MG/DL (2.5-4.9) Magnesium Level 2.1 MG/DL (1.8-2.4) Total Bilirubin 0.3 MG/DL (0.2-1.0) Aspartate Amino Transf (AST/SGOT) 55 U/L (15-37) H Alanine Aminotransferase (ALT/SGPT) 100 U/L (12-78) H Alkaline Phosphatase 570 U/L (46-116) H C-Reactive Protein, Quantitative 14.7 mg/dL (0.00-0.90) H Total Protein 8.4 G/DL (6.4-8.2) H Albumin 2.3 G/DL (3.4-5.0) L Globulin 6.1 g/dL Albumin/Globulin Ratio 0.4 (1.0-2.7) L Hepatitis A Antibody Total Pending Hepatitis B Surface Antigen Pending Hepatitis B Surface Antibody Pending Hepatitis B Core Total Antibody Pending Hepatitis B Core IgM Antibody Pending Hepatitis C Antibody Pending Current Medications Medications (Trade) Dose Ordered Sig/Ludy Route PRN Reason Start Time Stop Time Status Last Admin Dose Admin Acetaminophen (Tylenol) 650 mg Q4H PRN ORAL Mild Pain/Temp > 100.5 12/26/16 08:00 01/25/17 07:59 10/23/17 19:02 Albuterol/ Ipratropium (DuoNeb 0.5-3(2.5)mg/3ml) 3 ml EVERY 4 HOURS PRN HHN Shortness of Breath 12/25/16 18:00 12/30/16 17:59 Cefazolin Sodium 1 gm/Dextrose 55 ml @ 110 mls/hr EVERY 8 HOURS IVPB 12/26/16 15:00 01/02/17 14:59 12/28/16 05:29 Dextrose (Dextrose 50%) STAT PRN IV Hypoglycemia 12/25/16 18:00 01/24/17 17:59 Doxycycline Monohydrate (Vibramycin) 100 mg EVERY 12 HOURS ORAL 12/26/16 14:00 01/02/17 13:59 12/28/16 10:02 Heparin Sodium (Porcine) (Heparin 5000 units/ml) 5,000 units EVERY 12 HOURS SUBQ 12/25/16 21:00 01/24/17 20:59 12/27/16 21:45 Levetiracetam (Keppra) 1,500 mg EVERY 12 HOURS ORAL 12/25/16 21:00 01/24/17 20:59 12/28/16 10:03 Lorazepam (Ativan) 1 mg Q6H PRN ORAL For Anxiety 12/25/16 18:00 01/01/17 17:59 12/28/16 01:59 Morphine Sulfate (Morphine Sulfate) 2 mg EVERY 4 HOURS PRN IVP Moderate Pain (Pain Scale 4-6) 12/25/16 18:00 01/01/17 17:59 12/28/16 10:15 Nitroglycerin (Ntg) 0.4 mg Q5MIN X3 PRN SL Prn Chest Pain 12/25/16 18:00 01/24/17 17:59 Ondansetron HCl (Zofran) 4 mg Q6H PRN IVP Nausea & Vomiting 12/25/16 18:00 01/24/17 17:59 Phenobarbital (PHENobarbital) 64.8 mg Q12HR ORAL 12/25/16 21:00 01/24/17 20:59 12/28/16 10:02 Polyethylene Glycol (Miralax) 17 gm DAILYPRN PRN ORAL Constipation 12/25/16 18:00 01/24/17 17:59 Quetiapine Fumarate (SEROquel) 50 mg EVERY 8 HOURS ORAL 12/27/16 22:00 01/26/17 21:59 12/28/16 05:29 Temazepam (Restoril) 15 mg HSPRN PRN ORAL Insomnia 12/25/16 21:00 01/01/17 20:59 12/27/16 01:23 Nataliia Alfaro M.D. Dec 28, 2016 12:39
[2016-12-28] MEDS ORDERED: CEPHALEXIN500 MG ORAL (17:41)
[2016-12-28] MEDS ORDERED: DOXYCYCLINE HY150 M1 PO (17:43)
--- NOTE | 2016-12-28 17:45 | Pulmonology Progress Note ---
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 (4) Seizure disorder Assessment/Plan improving check cultures f/u ID recommendations CT reviewed f/u neuro recommendations Subjective ROS Limited/Unobtainable: No Constitutional: Reports: no symptoms HEENT: Repors: no symptoms Respiratory: Reports: no symptoms Allergies: Coded Allergies: NO KNOWN ALLERGIES (Unverified Allergy, Unknown, 02/08/15) Objective Last 24 Hour Vital Signs Date Time Temp Pulse Resp B/P (MAP) Pulse Ox O2 Delivery O2 Flow Rate FiO2 12/28/16 08:00 97.7 86 19 120/76 95 Room Air 12/28/16 07:03 86 18 Room Air 21 12/28/16 04:57 97.9 86 20 97/68 93 Room Air 12/27/16 23:43 98.4 107 20 131/84 94 Room Air 12/27/16 21:15 90 18 Room Air 21 12/27/16 20:00 99.1 101 20 96/57 93 Room Air Intake and Output 12/28/16 12/29/16 19:00 07:00 # Bowel Movements 2 General Appearance: WD/WN HEENT: normocephalic, anicteric Respiratory/Chest: chest wall non-tender, lungs clear Cardiovascular: normal peripheral pulses, regular rhythm Abdomen: normal bowel sounds, soft, non tender Genitourinary: normal external genitalia Extremities: no clubbing Neurologic/Psychiatric: no motor/sensory deficits Laboratory Tests 12/28/16 07:10: White Blood Count 10.3, Red Blood Count 2.99L, Hemoglobin 9.5L, Hematocrit 29.3L , Mean Corpuscular Volume 98, Mean Corpuscular Hemoglobin 31.8H, Mean Corpuscular Hemoglobin Concent 32.4, Red Cell Distribution Width 13.9, Platelet Count 399, Mean Platelet Volume 5.5L, Neutrophils (%) (Auto) 66.7, Lymphocytes ( %) (Auto) 25.9, Monocytes (%) (Auto) 6.0, Eosinophils (%) (Auto) 1.0, Basophils (%) (Auto) 0.4, Erythrocyte Sedimentation Rate 125H, Sodium Level 148H, Potassium Level 3.8, Chloride Level 109H, Carbon Dioxide Level 29, Anion Gap 10 , Blood Urea Nitrogen 18, Creatinine 1.5H, Estimat Glomerular Filtration Rate 49.7, Glucose Level 76, Calcium Level 9.5, Phosphorus Level 3.6, Magnesium Level 2.1, Total Bilirubin 0.3, Aspartate Amino Transf (AST/SGOT) 55H, Alanine Aminotransferase (ALT/SGPT) 100H, Alkaline Phosphatase 570H, C-Reactive Protein , Quantitative 14.7H, Total Protein 8.4H, Albumin 2.3L, Globulin 6.1, Albumin/ Globulin Ratio 0.4L, Hepatitis A Antibody Total [Pending], Hepatitis B Surface Antigen [Pending], Hepatitis B Surface Antibody [Pending], Hepatitis B Core Total Antibody [Pending], Hepatitis B Core IgM Antibody [Pending], Hepatitis C Antibody [Pending] Current Medications Medications (Trade) Dose Ordered Sig/Ludy Route PRN Reason Start Time Stop Time Status Last Admin Dose Admin Acetaminophen (Tylenol) 650 mg Q4H PRN ORAL Mild Pain/Temp > 100.5 12/26/16 08:00 01/25/17 07:59 12/26/16 19:02 Albuterol/ Ipratropium (DuoNeb 0.5-3(2.5)mg/3ml) 3 ml EVERY 4 HOURS PRN HHN Shortness of Breath 12/25/16 18:00 12/30/16 17:59 Cefazolin Sodium 1 gm/Dextrose 55 ml @ 110 mls/hr EVERY 8 HOURS IVPB 12/26/16 15:00 01/02/17 14:59 12/28/16 15:09 Dextrose (Dextrose 50%) STAT PRN IV Hypoglycemia 12/25/16 18:00 01/24/17 17:59 Doxycycline Monohydrate (Vibramycin) 100 mg EVERY 12 HOURS ORAL 12/26/16 14:00 01/02/17 13:59 12/28/16 10:02 Heparin Sodium (Porcine) (Heparin 5000 units/ml) 5,000 units EVERY 12 HOURS SUBQ 12/25/16 21:00 01/24/17 20:59 12/27/16 21:45 Levetiracetam (Keppra) 1,500 mg EVERY 12 HOURS ORAL 12/25/16 21:00 01/24/17 20:59 12/28/16 10:03 Lorazepam (Ativan) 1 mg Q6H PRN ORAL For Anxiety 12/25/16 18:00 01/01/17 17:59 12/28/16 01:59 Morphine Sulfate (Morphine Sulfate) 2 mg EVERY 4 HOURS PRN IVP Moderate Pain (Pain Scale 4-6) 12/25/16 18:00 01/01/17 17:59 12/28/16 16:18 Nitroglycerin (Ntg) 0.4 mg Q5MIN X3 PRN SL Prn Chest Pain 12/25/16 18:00 01/24/17 17:59 Ondansetron HCl (Zofran) 4 mg Q6H PRN IVP Nausea & Vomiting 12/25/16 18:00 01/24/17 17:59 Phenobarbital (PHENobarbital) 64.8 mg Q12HR ORAL 12/25/16 21:00 01/24/17 20:59 12/28/16 10:02 Polyethylene Glycol (Miralax) 17 gm DAILYPRN PRN ORAL Constipation 12/25/16 18:00 01/24/17 17:59 Quetiapine Fumarate (SEROquel) 50 mg EVERY 8 HOURS ORAL 12/27/16 22:00 01/26/17 21:59 12/28/16 15:09 Temazepam (Restoril) 15 mg HSPRN PRN ORAL Insomnia 12/25/16 21:00 01/01/17 20:59 12/27/16 01:23 BALDEV TRENT Dec 28, 2016 17:45
[2016-12-28 20:11] VITALS: BP 109/65
--- NOTE | 2016-12-28 22:20 | General Progress Note ---
Assessment/Plan Status: stable, progressing Assessment/Plan decrease agitation cont current meds Subjective Neurologic/Psychiatric: Reports: anxiety, depressed, emotional problems Allergies: Coded Allergies: NO KNOWN ALLERGIES (Unverified Allergy, Unknown, 02/08/15) Subjective decrease agitation. expressive aphasia due to an old aneurysm and craniotomy Objective Last 24 Hour Vital Signs Date Time Temp Pulse Resp B/P (MAP) Pulse Ox O2 Delivery O2 Flow Rate FiO2 12/28/16 21:07 92 20 Room Air 21 12/28/16 20:11 98.4 81 19 109/65 91 Room Air 12/28/16 08:00 97.7 86 19 120/76 95 Room Air 12/28/16 07:03 86 18 Room Air 21 12/28/16 04:57 97.9 86 20 97/68 93 Room Air 12/27/16 23:43 98.4 107 20 131/84 94 Room Air Intake and Output 12/28/16 12/29/16 19:00 07:00 Intake Total 120 ml 55 ml Output Total 600 ml Balance -480 ml 55 ml Intake Oral 120 ml IV Total 55 ml Output Urine Total 600 ml # Voids 2 # Bowel Movements 2 Laboratory Tests 12/28/16 07:10: White Blood Count 10.3, Red Blood Count 2.99L, Hemoglobin 9.5L, Hematocrit 29.3L , Mean Corpuscular Volume 98, Mean Corpuscular Hemoglobin 31.8H, Mean Corpuscular Hemoglobin Concent 32.4, Red Cell Distribution Width 13.9, Platelet Count 399, Mean Platelet Volume 5.5L, Neutrophils (%) (Auto) 66.7, Lymphocytes ( %) (Auto) 25.9, Monocytes (%) (Auto) 6.0, Eosinophils (%) (Auto) 1.0, Basophils (%) (Auto) 0.4, Erythrocyte Sedimentation Rate 125H, Sodium Level 148H, Potassium Level 3.8, Chloride Level 109H, Carbon Dioxide Level 29, Anion Gap 10 , Blood Urea Nitrogen 18, Creatinine 1.5H, Estimat Glomerular Filtration Rate 49.7, Glucose Level 76, Calcium Level 9.5, Phosphorus Level 3.6, Magnesium Level 2.1, Total Bilirubin 0.3, Aspartate Amino Transf (AST/SGOT) 55H, Alanine Aminotransferase (ALT/SGPT) 100H, Alkaline Phosphatase 570H, C-Reactive Protein , Quantitative 14.7H, Total Protein 8.4H, Albumin 2.3L, Globulin 6.1, Albumin/ Globulin Ratio 0.4L, Hepatitis A Antibody Total [Pending], Hepatitis B Surface Antigen [Pending], Hepatitis B Surface Antibody [Pending], Hepatitis B Core Total Antibody [Pending], Hepatitis B Core IgM Antibody [Pending], Hepatitis C Antibody [Pending] Height (Feet): 5 Height (Inches): 9.00 Weight (Pounds): 150 General Appearance: no apparent distress, alert, confused, agitated Neurologic: alert, disoriented, depressed affect Candido Tam M.D. Dec 28, 2016 22:20
[2016-12-29 00:15] VITALS: BP 121/74
[2016-12-29] MEDS: Morphine Sulfate 2mg/ml Inj IVP PRN ×2 (00:21→13:40)
[2016-12-29 04:05] VITALS: BP 110/74
[2016-12-29] MEDS: ceFAZolin 1gm in D5W 55ml IVPB SCH ×2 (05:32→13:27)
[2016-12-29 06:53] LABS: BASOPHILS % (AUTO) 0.5 % (0.0-2.0); LYMPHOCYTES % (AUTO) 32.3 % (20.0-45.0); MEAN CORPUSCULAR HEMOGLOBIN 31.6 PG (27.0-31.0); MEAN CORPUSCULAR VOLUME 99 FL (80-99); MEAN PLATELET VOLUME 5.3 FL (6.5-10.1); MONOCYTES % (AUTO) 8.9 % (1.0-10.0); NEUTROPHILS % (AUTO) 56.3 % (45.0-75.0); PLATELET COUNT 438 K/UL (150-450); RED BLOOD COUNT 2.97 M/UL (4.70-6.10); RED CELL DISTRIBUTION WIDTH 13.9 % (11.6-14.8); WHITE BLOOD COUNT 8.8 K/UL (4.8-10.8)
[2016-12-29 07:12] LABS: HEP B CORE AB TOTAL Negative (Negative); HEPATITIS A ANTIBODY TOTAL Positive (Negative)
[2016-12-29 07:55] LABS: ALANINE AMINOTRANSFERASE 86 U/L (12-78); ALBUMIN/GLOBULIN RATIO 0.4 (1.0-2.7); ANION GAP 9 mmol/L (5-15); ASPARTATE AMINO TRANSFERASE 59 U/L (15-37); CALCIUM 8.9 MG/DL (8.5-10.1); CARBON DIOXIDE 30 MMOL/L (21-32); CHLORIDE 110 MMOL/L (98-107); CREATININE 1.2 MG/DL (0.55-1.30); CRP QUANT 12.8 mg/dL (0.00-0.90); GLOMERULAR FILTRATION RATE > 60 mL/min (>60); MAGNESIUM 2.1 MG/DL (1.8-2.4); PHOSPHORUS 3.9 MG/DL (2.5-4.9); POTASSIUM 4.7 MMOL/L (3.5-5.1); SODIUM 149 MMOL/L (136-145); TOTAL PROTEIN 7.1 G/DL (6.4-8.2)
[2016-12-29 08:00] VITALS: BP 101/66
[2016-12-29] MEDS: PHENobarbital 32.4mg tab ORAL SCH (08:20)
[2016-12-29] MEDS: Heparin 5000 units/ml inj SUBQ SCH (08:24)
[2016-12-29 08:31] LABS: ERYTHROCYTE SEDIMENTATION RATE 127 MM/HR (0-15)
[2016-12-29] MEDS: LORazepam 1mg tab ORAL PRN (10:42)
[2016-12-29] MEDS ORDERED: NS 500ML IV ONE (10:42)
[2016-12-29] MEDS ORDERED: Tubing IV Secondary IV ONE (10:42)
--- NOTE | 2016-12-29 11:48 | Infectious Diseases Prog Note ---
Assessment/Plan Assessment/Plan Assessment/Plan Abx: IV Vanco/Cefepime 12/25-12/26 IV Ancef, PO doxy 12/26- Assesment: R leg/foot cellulitis- erythematous plaque lesions (unclear etiology); improving -xray R foot/tibia/fibula-: no acute process -venous duplex BLE: no DVT -BCx NTD -HIV ag/ab neg, RPR neg Afebrile, no leukocytosis Pyuria/bacteriuria- assymptomatic -u/a WBC 20-30; uCx >100K P.mirabilis (S. 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 Will continue to follow along with you. Discussed with RN. Subjective Allergies: Coded Allergies: NO KNOWN ALLERGIES (Unverified Allergy, Unknown, 02/08/15) Subjective afebrile Objective Vital Signs Last 24 Hour Vital Signs Date Time Temp Pulse Resp B/P (MAP) Pulse Ox O2 Delivery O2 Flow Rate FiO2 12/29/16 08:38 71 18 Room Air 21 12/29/16 08:00 97.7 71 19 101/66 93 Room Air 12/29/16 04:05 98.1 81 19 110/74 93 12/29/16 00:15 98.6 76 19 121/74 91 Room Air 12/28/16 21:07 92 20 Room Air 21 12/28/16 20:11 98.4 81 19 109/65 91 Room Air Height (Feet): 5 Height (Inches): 9.00 Weight (Pounds): 150 Objective General Appearance: well appearing, no apparent distress HEENT: bilateral eye PERRL, dry mucus membranes Neck: supple Respiratory: lungs clear, normal breath sounds Cardiovascular : no murmur, tachycardia, edema - RLE 1-2+ Gastrointestinal: normal inspection, normal bowel sounds, non tender, no mass, non-distended, other - G tube Musculoskeletal: back normal, other - R flexor contractures UE and extensor contractures LE Neurologic: alert, responsive, motor weakness - R hemiparesis, other - yes and no answers Psychiatric: mood/affect normal Skin: warm/dry, other - erythema R dorsum of foot extending to distal leg with erythematous plaques dorsum near ankle; improving reviewed Laboratory Tests Test 12/29/16 05:10 White Blood Count 8.8 K/UL (4.8-10.8) Red Blood Count 2.97 M/UL (4.70-6.10) L Hemoglobin 9.4 G/DL (14.2-18.0) L Hematocrit 29.3 % (42.0-52.0) L Mean Corpuscular Volume 99 FL (80-99) Mean Corpuscular Hemoglobin 31.6 PG (27.0-31.0) H Mean Corpuscular Hemoglobin Concent 32.0 G/DL (32.0-36.0) Red Cell Distribution Width 13.9 % (11.6-14.8) Platelet Count 438 K/UL (150-450) Mean Platelet Volume 5.3 FL (6.5-10.1) L Neutrophils (%) (Auto) 56.3 % (45.0-75.0) Lymphocytes (%) (Auto) 32.3 % (20.0-45.0) Monocytes (%) (Auto) 8.9 % (1.0-10.0) Eosinophils (%) (Auto) 2.0 % (0.0-3.0) Basophils (%) (Auto) 0.5 % (0.0-2.0) Erythrocyte Sedimentation Rate 127 MM/HR (0-15) H Sodium Level 149 MMOL/L (136-145) H Potassium Level 4.7 MMOL/L (3.5-5.1) Chloride Level 110 MMOL/L (98-107) H Carbon Dioxide Level 30 MMOL/L (21-32) Anion Gap 9 mmol/L (5-15) Blood Urea Nitrogen 21 mg/dL (7-18) H Creatinine 1.2 MG/DL (0.55-1.30) Estimat Glomerular Filtration Rate > 60 mL/min (>60) Glucose Level 64 MG/DL (74-106) L Calcium Level 8.9 MG/DL (8.5-10.1) Phosphorus Level 3.9 MG/DL (2.5-4.9) Magnesium Level 2.1 MG/DL (1.8-2.4) Total Bilirubin 0.3 MG/DL (0.2-1.0) Aspartate Amino Transf (AST/SGOT) 59 U/L (15-37) H Alanine Aminotransferase (ALT/SGPT) 86 U/L (12-78) H Alkaline Phosphatase 585 U/L (46-116) H C-Reactive Protein, Quantitative 12.8 mg/dL (0.00-0.90) H Total Protein 7.1 G/DL (6.4-8.2) Albumin 2.2 G/DL (3.4-5.0) L Globulin 4.9 g/dL Albumin/Globulin Ratio 0.4 (1.0-2.7) L Current Medications Medications (Trade) Dose Ordered Sig/Ludy Route PRN Reason Start Time Stop Time Status Last Admin Dose Admin Acetaminophen (Tylenol) 650 mg Q4H PRN ORAL Mild Pain/Temp > 100.5 12/26/16 08:00 01/25/17 07:59 12/26/16 19:02 Albuterol/ Ipratropium (DuoNeb 0.5-3(2.5)mg/3ml) 3 ml EVERY 4 HOURS PRN HHN Shortness of Breath 12/25/16 18:00 12/30/16 17:59 Cefazolin Sodium 1 gm/Dextrose 55 ml @ 110 mls/hr EVERY 8 HOURS IVPB 12/26/16 15:00 01/02/17 14:59 12/29/16 05:32 Dextrose (Dextrose 50%) STAT PRN IV Hypoglycemia 12/25/16 18:00 01/24/17 17:59 Doxycycline Monohydrate (Vibramycin) 100 mg EVERY 12 HOURS ORAL 12/26/16 14:00 01/02/17 13:59 12/29/16 08:19 Heparin Sodium (Porcine) (Heparin 5000 units/ml) 5,000 units EVERY 12 HOURS SUBQ 12/25/16 21:00 01/24/17 20:59 12/29/16 08:24 Levetiracetam (Keppra) 1,500 mg EVERY 12 HOURS ORAL 12/25/16 21:00 01/24/17 20:59 12/29/16 08:19 Lorazepam (Ativan) 1 mg Q6H PRN ORAL For Anxiety 12/25/16 18:00 01/01/17 17:59 12/29/16 10:42 Morphine Sulfate (Morphine Sulfate) 2 mg EVERY 4 HOURS PRN IVP Moderate Pain (Pain Scale 4-6) 12/25/16 18:00 01/01/17 17:59 12/29/16 00:21 Nitroglycerin (Ntg) 0.4 mg Q5MIN X3 PRN SL Prn Chest Pain 12/25/16 18:00 01/24/17 17:59 Ondansetron HCl (Zofran) 4 mg Q6H PRN IVP Nausea & Vomiting 12/25/16 18:00 01/24/17 17:59 Phenobarbital (PHENobarbital) 64.8 mg Q12HR ORAL 12/25/16 21:00 01/24/17 20:59 12/29/16 08:20 Polyethylene Glycol (Miralax) 17 gm DAILYPRN PRN ORAL Constipation 12/25/16 18:00 01/24/17 17:59 Quetiapine Fumarate (SEROquel) 50 mg EVERY 8 HOURS ORAL 12/27/16 22:00 01/26/17 21:59 12/29/16 05:32 Temazepam (Restoril) 15 mg HSPRN PRN ORAL Insomnia 12/25/16 21:00 01/01/17 20:59 12/27/16 01:23 Nataliia Alfaro M.D. Dec 29, 2016 11:48
[2016-12-29 12:00] VITALS: BP 105/68
[2016-12-29] MEDS ORDERED: Morphine Sulfate 4mg/ml Inj ONE (13:37)
--- NOTE | 2016-12-29 17:02 | Pulmonology Progress Note ---
Assessment/Plan Problems: (1) Seizure disorder (2) Status post CVA (3) Cellulitis of right foot (4) Renal insufficiency Assessment/Plan improving check wbc check cultures neuro and ID evaluation dc home with oral abx Subjective ROS Limited/Unobtainable: No Constitutional: Reports: no symptoms HEENT: Repors: no symptoms Respiratory: Reports: no symptoms Allergies: Coded Allergies: NO KNOWN ALLERGIES (Unverified Allergy, Unknown, 02/08/15) Objective Last 24 Hour Vital Signs Date Time Temp Pulse Resp B/P (MAP) Pulse Ox O2 Delivery O2 Flow Rate FiO2 12/29/16 12:00 98.1 86 19 105/68 93 Room Air 12/29/16 08:38 71 18 Room Air 21 12/29/16 08:00 97.7 71 19 101/66 93 Room Air 12/29/16 04:05 98.1 81 19 110/74 93 12/29/16 00:15 98.6 76 19 121/74 91 Room Air 12/28/16 21:07 92 20 Room Air 21 12/28/16 20:11 98.4 81 19 109/65 91 Room Air Intake and Output 12/29/16 12/30/16 19:00 07:00 Intake Total 260 ml Output Total 200 ml Balance 60 ml Intake Oral 260 ml Output Urine Total 200 ml General Appearance: WD/WN HEENT: normocephalic, atraumatic Respiratory/Chest: chest wall non-tender, lungs clear Cardiovascular: normal peripheral pulses, normal rate Abdomen: normal bowel sounds, soft, non tender Genitourinary: normal external genitalia Extremities: no cyanosis Skin: no lesions 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/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: 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, no motor/sensory deficits Laboratory Tests 12/29/16 05:10: White Blood Count 8.8, Red Blood Count 2.97L, Hemoglobin 9.4L, Hematocrit 29.3L , Mean Corpuscular Volume 99, Mean Corpuscular Hemoglobin 31.6H, Mean Corpuscular Hemoglobin Concent 32.0, Red Cell Distribution Width 13.9, Platelet Count 438, Mean Platelet Volume 5.3L, Neutrophils (%) (Auto) 56.3, Lymphocytes ( %) (Auto) 32.3, Monocytes (%) (Auto) 8.9, Eosinophils (%) (Auto) 2.0, Basophils (%) (Auto) 0.5, Erythrocyte Sedimentation Rate 127H, Sodium Level 149H, Potassium Level 4.7, Chloride Level 110H, Carbon Dioxide Level 30, Anion Gap 9, Blood Urea Nitrogen 21H, Creatinine 1.2, Estimat Glomerular Filtration Rate > 60 , Glucose Level 64L, Calcium Level 8.9, Phosphorus Level 3.9, Magnesium Level 2.1, Total Bilirubin 0.3, Aspartate Amino Transf (AST/SGOT) 59H, Alanine Aminotransferase (ALT/SGPT) 86H, Alkaline Phosphatase 585H, C-Reactive Protein, Quantitative 12.8H, Total Protein 7.1, Albumin 2.2L, Globulin 4.9, Albumin/ Globulin Ratio 0.4L BALDEV TRENT Dec 29, 2016 17:01
--- NOTE | 2016-12-29 17:15 | Electroencephalogram ---
DATE OF PROCEDURE: 12/27/2016 ELECTROENCEPHALOGRAPHY REPORT REFERRING PHYSICIAN: Shine Ferrer M.D. HISTORY: The patient is a 51-year-old man with a history of left parietal craniotomy resulting in a right hemiplegia, expressive aphasia, now presenting with intermittent shaking and twitching his right foot. Seizure activity was suspected and EEG was obtained. MEDICATIONS: Current treatment include Depakote, Keppra, phenobarbital and Klonopin. TECHNIQUE: During the recording, the patient described as being awake or drowsy, but poorly cooperative due to aphasia. Most wakeful portions of recording, background activity consists of diffuse slowing 6-8 cycles per second with almost continuous slowing in the delta range, 1-2 per second in the left frontal, temporal and central region with phase reversal at T3 area. So far spike and wave, intermittent transients left temporal area approximately one per second. There was intermittent head movement [id number] with a corresponding EMG artifacts. Gm and wave transients did not correspond to movement activities. IMPRESSION: Markedly abnormal electroencephalogram in presence of moderate diffuse slowing with continuous slow wave activity and epileptiform activities emanating from left temporal area corresponding to craniotomy. COMMENT: Above abnormality indicate a significant structural abnormality with epileptiform activity in left temporal area (mostly T3). This is indicate a high risk of transformation to seizure event. Clinical correlation advised. Alejandro Grey M.D. DR: THONY JOB#: [id number] CC:
--- NOTE | 2016-12-29 21:52 | General Progress Note ---
Assessment/Plan Status: stable Assessment/Plan decrease agitation cont current meds Subjective Neurologic/Psychiatric: Reports: anxiety Allergies: Coded Allergies: NO KNOWN ALLERGIES (Unverified Allergy, Unknown, 02/08/15) Subjective decrease agitation. expressive aphasia due to an old aneurysm and craniotomy Objective Last 24 Hour Vital Signs Date Time Temp Pulse Resp B/P (MAP) Pulse Ox O2 Delivery O2 Flow Rate FiO2 12/29/16 12:00 98.1 86 19 105/68 93 Room Air 12/29/16 08:38 71 18 Room Air 21 12/29/16 08:00 97.7 71 19 101/66 93 Room Air 12/29/16 04:05 98.1 81 19 110/74 93 12/29/16 00:15 98.6 76 19 121/74 91 Room Air Intake and Output 12/29/16 12/30/16 19:00 07:00 Intake Total 260 ml Output Total 200 ml Balance 60 ml Intake Oral 260 ml Output Urine Total 200 ml Laboratory Tests 12/29/16 05:10: White Blood Count 8.8, Red Blood Count 2.97L, Hemoglobin 9.4L, Hematocrit 29.3L , Mean Corpuscular Volume 99, Mean Corpuscular Hemoglobin 31.6H, Mean Corpuscular Hemoglobin Concent 32.0, Red Cell Distribution Width 13.9, Platelet Count 438, Mean Platelet Volume 5.3L, Neutrophils (%) (Auto) 56.3, Lymphocytes ( %) (Auto) 32.3, Monocytes (%) (Auto) 8.9, Eosinophils (%) (Auto) 2.0, Basophils (%) (Auto) 0.5, Erythrocyte Sedimentation Rate 127H, Sodium Level 149H, Potassium Level 4.7, Chloride Level 110H, Carbon Dioxide Level 30, Anion Gap 9, Blood Urea Nitrogen 21H, Creatinine 1.2, Estimat Glomerular Filtration Rate > 60 , Glucose Level 64L, Calcium Level 8.9, Phosphorus Level 3.9, Magnesium Level 2.1, Total Bilirubin 0.3, Aspartate Amino Transf (AST/SGOT) 59H, Alanine Aminotransferase (ALT/SGPT) 86H, Alkaline Phosphatase 585H, C-Reactive Protein, Quantitative 12.8H, Total Protein 7.1, Albumin 2.2L, Globulin 4.9, Albumin/ Globulin Ratio 0.4L Height (Feet): 5 Height (Inches): 9.00 Weight (Pounds): 150 General Appearance: no apparent distress, alert, confused Neurologic: alert, unresponsive, depressed affect Candido Tam M.D. Dec 29, 2016 21:52
--- NOTE | 2016-12-30 10:07 | Discharge Summary ---
Discharge Summary Hospital Course Date of Admission Dec 25, 2016 at 14:20 Date of Discharge Dec 29, 2016 at 14:35 Admitting Diagnosis cellulitis HPI Bhavin Munson is a 51 year old male who was admitted on Dec 25, 2016 at 14:20 for Cellulitis Hospital Course [id number] Discharge Discharge Disposition Patient was discharged to SNF/Subacute Facility(03) Discharge Diagnoses: Vani Tam NP Dec 30, 2016 10:07
--- NOTE | 2016-12-30 16:15 | Discharge Summary 2 SIG ---
DATE OF ADMISSION: 12/25/2016 DATE OF DISCHARGE: 12/29/2016 CONSULTANTS: 1. Candido Tam M.D. 2. Alejandro Grey M.D. 3. Nataliia Alfaro M.D. BRIEF HOSPITAL COURSE: The patient is a 51-year-old male with history of seizures, on G-tube with history of cerebrovascular accident secondary to cerebral aneurysm, status post craniotomy with residual right hemiplegia and chronic contractures, presented to [facility] complaining of redness and swelling of the right leg. On evaluation at ED, chest x-ray showed atelectatic left base. EKG was in sinus tachycardia. X-ray of the right tibia and fibula showed no acute process. There was no dislocation and no fracture. Urinalysis showed pyuria with 3+ leukocyte esterase, 20 to 30 WBC, and 10 to 15 RBC. He was admitted to medical floor for cellulitis of the leg and was started on IV vancomycin and cefepime, which was eventually switched to IV Ancef and doxycycline. Venous duplex of lower extremity was negative for DVT. Creatinine was elevated to 1.6 and BUN was 28. He was given IV hydration. The patient has chronic seizure disorder and was noted to have intermittent shaking and twitching of the right foot. Depakote was discontinued due to elevated liver function tests. Head CT showed evidence of prior left craniotomy/craniectomy and clipping of multiple aneurysms. There was extensive left convexity encephalomalacia. Negative for acute intracranial bleed or mass effect. He was continued on phenobarbital and Keppra and was given Ativan 1 mg p.r.n. EEG done showed markedly abnormal encephalogram and presence of moderate diffuse slowing with continuous slow wave activity and epileptiform activities emanating from the left temporal area corresponding to a craniotomy. The patient was agitated and confused and disorganized. Risperdal was discontinued and was started on Seroquel. Urine culture showed growth of Proteus mirabilis. Acute kidney injury and transaminitis improved. Hepatitis panel was negative. He was eventually discharged back to SNF to continue antibiotic treatment. FINAL DIAGNOSES: 1. Cellulitis of the right foot. 2. Seizure disorder. 3. Acute kidney injury. 4. Old cerebrovascular accident with right hemiparesis. 5. Chronic seizure disorder with acute exacerbation. 6. Abnormal elevated liver transaminases, possibly drug-induced secondary to Depakote. 7. Urinary tract infection with Proteus. 8. Chronic contractures. 9. Agitation. 10. Cognitive impairment. DISPOSITION: The patient was discharged to [facility]. DISCHARGE MEDICATIONS: Refer to medication list. Shine Ferrer M.D. I have been assigned to dictate discharge summary on this account and I was not involved in the patient's management. Vani Tam N.P. DR: TRISH JOB#: [id number] CC:
== END 2016-12-29 14:35 | DRG 603 ==
LOC: EDBD 13:33 → EMR 14:15 → 4W 14:20 → EDBEDREQ 14:55 → 4W 12-26 18:42
DX: L03.115 Cellulitis of right lower limb (principal); N17.9 Acute kidney failure, unspecified; I69.354 Hemiplegia and hemiparesis following cerebral infarction affecting left non-dominant side; Z43.1 Encounter for attention to gastrostomy; N39.0 Urinary tract infection, site not specified; G40.909 Epilepsy, unspecified, not intractable, without status epilepticus; I69.320 Aphasia following cerebral infarction; R74.8 Abnormal levels of other serum enzymes; T42.6X5A Adverse effect of other antiepileptic and sedative-hypnotic drugs, initial encounter; B96.4 Proteus (mirabilis) (morganii) as the cause of diseases classified elsewhere; M24.50 Contracture, unspecified joint; R45.1 Restlessness and agitation; G31.84 Mild cognitive impairment of uncertain or unknown etiology
CPT/HCPCS: 36415; 70450; 71010; 80053; 80184; 80299; 81003; 82550; 83605; 83735; 83880; 84100; 84484; 85025; 85610; 85651; 85730; 86140; 86592; 86635; 86703; 86704; 86705; 86708; 86803; 87040; 87081; 87086; 87181; 87340; 87517; 93005; 93970; 94664; 95819; 99285; J2405

== ENCOUNTER 2017-02-02 16:14 | Inpatient (IN) | payer MEDICARE, OTHER ==
[~2017-02-02] VITALS: Ht 180.3 cm; Wt 72.6 kg
[~2017-02-02 16:14] MED LIST changes: +AMBIEN5 MG ORAL; +CEPHALEXIN500 MG ORAL; +COLACE100 MG ORAL; +DEPAKENE250 MG/5 M PO; +DOXYCYCLINE HY150 M1 PO; +NEURONTIN100 MG ORAL; +PHENOBARBITAL60 MG ORAL
[2017-02-02] MEDS ORDERED: MILK OF MA400 MG/51 ORAL ×2 (16:27→19:37)
[2017-02-02] MEDS ORDERED: MIRALAX17 G2 ORAL ×2 (16:27→19:37)
[2017-02-02] MEDS ORDERED: NITROGLYCERIN0.4 MG SL ×2 (16:27→19:37)
[2017-02-02] MEDS ORDERED: PRO-STAT LIQUID30 ML ORAL (16:27)
[2017-02-02 17:06] LABS: BASOPHILS % (AUTO) 0.2 % (0.0-2.0); EOSINOPHILS % (AUTO) 0.6 % (0.0-3.0); LYMPHOCYTES % (AUTO) 11.4 % (20.0-45.0); MEAN CORPUSCULAR HEMOGLOBIN 31.8 PG (27.0-31.0); MEAN CORPUSCULAR HGB CONC 31.9 G/DL (32.0-36.0); MEAN CORPUSCULAR VOLUME 100 FL (80-99); MEAN PLATELET VOLUME 7.3 FL (6.5-10.1); MONOCYTES % (AUTO) 4.5 % (1.0-10.0); NEUTROPHILS % (AUTO) 83.3 % (45.0-75.0); PLATELET COUNT 115 K/UL (150-450); RED BLOOD COUNT 3.34 M/UL (4.70-6.10); RED CELL DISTRIBUTION WIDTH 15.3 % (11.6-14.8); WHITE BLOOD COUNT 11.6 K/UL (4.8-10.8)
--- NOTE | 2017-02-02 17:16 | Emergency Room Report ---
History of Present Illness General Chief Complaint: Generalized Weakness Source: Medical Record Present Illness HPI 51-year-old male history of schizophrenia, aphasia after CVA, right-sided hemiparesis, generalized muscle weakness, sent in for generalized muscle weakness Patient currently saying incomprehensible sounds, unable to obtain any further history from the patient Allergies: Coded Allergies: NO KNOWN ALLERGIES (Unverified Allergy, Unknown, 02/08/15) Patient History Past Medical History: see triage record Past Surgical History: unable to obtain Pertinent Family History: unable to obtain Reviewed Nursing Documentation: PMH: Agreed, PSxH: Agreed Nursing Documentation-PMH Hx Cardiac Problems: Yes - Ischemic heart disease; Anemia Hx Cancer: No Hx Gastrointestinal Problems: Yes - G-tube Hx Neurological Problems: Yes - POLYNEUROPATHY, APRAXIA Hx Cerebrovascular Accident: Yes Hx Seizures: Yes Hx Epilepsy: Yes Hx Aphasia: Yes Review of Systems All Other Systems: negative except mentioned in HPI Physical Exam Vital Signs Date Time Temp Pulse Resp B/P (MAP) Pulse Ox O2 Delivery O2 Flow Rate FiO2 02/02/17 16:11 78 24 100/68 98 Room Air Sp02 EP Interpretation: reviewed, normal General Appearance: other - aphasic, nad Head: normocephalic, atraumatic Eyes: bilateral eye normal inspection, bilateral eye PERRL, bilateral eye EOMI ENT: normal ENT inspection, normal pharynx, moist mucus membranes Neck: normal inspection, full range of motion, supple Respiratory: normal inspection, lungs clear, normal breath sounds, no respiratory distress, no retraction, no wheezing, speaking full sentences, chest symmetrical Cardiovascular #1: normal inspection, regular rate, rhythm, normal capillary refill Cardiovascular #2: 2+ radial (R), 2+ radial (L) Gastrointestinal: normal inspection, non tender, soft, non-distended, no guarding Musculoskeletal: normal inspection, back normal, normal range of motion, non- tender Neurologic: other - aphasic, not ff commands Psychiatric: other - aphasic Skin: normal inspection, normal color, no rash, warm/dry, well hydrated, normal turgor Medical Decision Making Diagnostic Impression: Primary Impression: Episode of generalized weakness Additional Impressions: UTI (urinary tract infection) Dehydration Hyperkalemia Hypernatremia Renal failure ER Course 51-year-old male, sent in for generalized weakness DDX: Dehydration, l disturbance, infectious, UTI, pneumonia, cardiac Plan: Obtain labs, ua, EKG, CXR ER course: Slightly hypotensive, 90/60, 1 L fluid given and patient is fluid responsive Continues to be aphasic however this is patient's baseline UTI on labs, given ceftriaxone Hyperkalemia on labs, given hyperkalemia cocktail Disposition: Patient is to be admitted to telemetry Patient was signed out to Dr Ferrer, who has accepted patient for admission. Please note that this Emergency Department Report was dictated using [employer] technology software, occasionally this can lead to erroneous entry secondary to interpretation by the dictation equipment. EKG Diagnostic Results EP Interpretation: Yes Rate: normal Rhythm: NSR ST Segments: No acute changes ASA given to patient: No Rhythm Strip EP Interpretation: Yes Rate: 75 Rhythm: NSR, no PVCs, no ectopy Chest X-ray CXR: Ordered: Yes 1 view Indication: Altered mental status EP interpretation: Yes Interpretation: No consolidation, no effusion, no PTX, no acute cardiopulmonary disease Impression: No acute disease Electronically signed by Ben Ascencio MD Laboratory Tests Test 02/02/17 16:30 02/02/17 17:05 White Blood Count 11.6 K/UL (4.8-10.8) H Red Blood Count 3.34 M/UL (4.70-6.10) L Hemoglobin 10.6 G/DL (14.2-18.0) L Hematocrit 33.2 % (42.0-52.0) L Mean Corpuscular Volume 100 FL (80-99) H Mean Corpuscular Hemoglobin 31.8 PG (27.0-31.0) H Mean Corpuscular Hemoglobin Concent 31.9 G/DL (32.0-36.0) L Red Cell Distribution Width 15.3 % (11.6-14.8) H Platelet Count 115 K/UL (150-450) L Mean Platelet Volume 7.3 FL (6.5-10.1) Neutrophils (%) (Auto) 83.3 % (45.0-75.0) H Lymphocytes (%) (Auto) 11.4 % (20.0-45.0) L Monocytes (%) (Auto) 4.5 % (1.0-10.0) Eosinophils (%) (Auto) 0.6 % (0.0-3.0) Basophils (%) (Auto) 0.2 % (0.0-2.0) Sodium Level 153 MMOL/L (136-145) H Potassium Level 6.1 MMOL/L (3.5-5.1) *H Chloride Level 117 MMOL/L (98-107) H Carbon Dioxide Level 22 MMOL/L (21-32) Anion Gap 13 mmol/L (5-15) Blood Urea Nitrogen 84 mg/dL (7-18) H Creatinine 4.4 MG/DL (0.55-1.30) H Estimate Glomerular Filtration Rate 14.4 mL/min (>60) Glucose Level 92 MG/DL (74-106) Lactic Acid Level 0.90 mmol/L (0.66-2.22) Calcium Level 10.0 MG/DL (8.5-10.1) Total Bilirubin 0.2 MG/DL (0.2-1.0) Aspartate Amino Transferase (AST) 53 U/L (15-37) H Alanine Aminotransferase (ALT) 100 U/L (12-78) H Alkaline Phosphatase 301 U/L (46-116) H Total Creatine Kinase 30 U/L (26-308) Troponin I 0.000 ng/mL (0.000-0.056) Total Protein 9.1 G/DL (6.4-8.2) H Albumin 2.2 G/DL (3.4-5.0) L Globulin 6.9 g/dL Albumin/Globulin Ratio 0.3 (1.0-2.7) L Urine Color Pale yellow Urine Appearance Slightly cloudy Urine pH 5 (4.5-8.0) Urine Specific [place] 1.015 (1.005-1.035) Urine Protein 3+ (NEGATIVE) H Urine Glucose (UA) Negative (NEGATIVE) Urine Ketones Negative (NEGATIVE) Urine Occult Blood 5+ (NEGATIVE) H Urine Nitrite Positive (NEGATIVE) H Urine Bilirubin Negative (NEGATIVE) Urine Urobilinogen Normal MG/DL (0.0-1.0) Urine Leukocyte Esterase 3+ (NEGATIVE) H Urine RBC 10-15 /HPF (0 - 0) H Urine WBC 5-10 /HPF (0 - 0) H Urine Squamous Epithelial Cells None /LPF (NONE/OCC) Urine Amorphous Sediment Few /LPF (NONE) H Urine Bacteria Moderate /HPF (NONE) H Last Vital Signs Date Time Temp Pulse Resp B/P (MAP) Pulse Ox O2 Delivery O2 Flow Rate FiO2 02/02/17 16:11 78 24 100/68 98 Room Air Ben Ascencio M.D. Feb 02, 2017 17:16
[2017-02-02 17:17] VITALS: BP 93/65
[2017-02-02 17:45] LABS: APPEARANCE,URINE SLIGHTLY CLOUDY; KETONES,URINE NEGATIVE (NEGATIVE); LEUKOCYTE ESTERASE ,URINE 3+ (NEGATIVE); NITRITE,URINE POSITIVE (NEGATIVE); PH,URINE 5 (4.5-8.0); PROTEIN,URINE 3+ (NEGATIVE); UROBILINOGEN,URINE NORMAL MG/DL (0.0-1.0)
[2017-02-02 17:52] LABS: AMORPHOUS SEDIMENT,UR FEW /LPF; BACTERIA,URINE MODERATE /HPF
[2017-02-02 17:53] LABS: ALANINE AMINOTRANSFERASE 100 U/L (12-78); ALBUMIN/GLOBULIN RATIO 0.3 (1.0-2.7); ANION GAP 13 mmol/L (5-15); ASPARTATE AMINO TRANSFERASE 53 U/L (15-37); CARBON DIOXIDE 22 MMOL/L (21-32); CHLORIDE 117 MMOL/L (98-107); CREATININE 4.4 MG/DL (0.55-1.30); GLOMERULAR FILTRATION RATE 14.4 mL/min (>60); SODIUM 153 MMOL/L (136-145); TOTAL PROTEIN 9.1 G/DL (6.4-8.2)
[2017-02-02 17:55] LABS: POTASSIUM 6.1 MMOL/L (3.5-5.1)
[2017-02-02] MEDS ORDERED: Calcium Gluconate 1gm/10ml vial IVP ONE (18:00)
[2017-02-02] MEDS ORDERED: cefTRIAXone 1 GM in NS 55 ML IVPB ONE (18:00)
[2017-02-02] MEDS ORDERED: Sodium Bicarbonate 50ml Carp IV ONE (18:00)
[2017-02-02 18:20] VITALS: BP 96/63
[2017-02-02 19:11] VITALS: BP 93/7
[2017-02-02] MEDS ORDERED: LORAZEPAM0.5 MG ORAL (19:20)
[2017-02-02] MEDS ORDERED: DULCOLAX10 MG RC (19:26)
[2017-02-02] MEDS ORDERED: GABAPENTIN100 MG ORAL (19:37)
[2017-02-02] MEDS ORDERED: NORCO 5-325 TA1 EACH ORAL (19:37)
[2017-02-02] MEDS ORDERED: HEPARIN SO5000 UNIT2 SUBQ (19:37)
[2017-02-02] MEDS ORDERED: FLEET ENEMA133 ML RECTAL (19:40)
[2017-02-02] MEDS ORDERED: DUONEB 0.5-3(2.53 ML HHN (19:45)
[2017-02-02] MEDS ORDERED: Albuterol/Ipratropium 3ml neb HHN PRN (19:45)
[2017-02-02] MEDS ORDERED: Miralax 17gm pkt ORAL PRN (19:45)
[2017-02-02] MEDS ORDERED: Morphine Sulfate 2mg/ml Inj IVP PRN (19:45)
[2017-02-02] MEDS ORDERED: TEMAZEPAM15 MG ORAL (19:45)
[2017-02-02] MEDS ORDERED: SENNA8.6 M2 PO (19:45)
[2017-02-02] MEDS ORDERED: ZOFRAN4 M3 ORAL (19:47)
[2017-02-02 20:11] VITALS: BP 98/73
[2017-02-02 21:00] VITALS: BP 90/63
[2017-02-02] MEDS ORDERED: Heparin 5000 units/ml inj SUBQ SCH (21:00)
[2017-02-02] MEDS ORDERED: Cefepime HCl 2 GM in D5W 110 ML IV SCH (21:00)
[2017-02-02] MEDS ORDERED: Cefepime 1gm in D5W 55ml IVPB SCH (21:00)
[2017-02-02] MEDS: Depakote ER 500mg tab ORAL SCH ×2 (21:00→21:52)
--- NOTE | 2017-02-02 21:47 | History and Physical ---
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 Patient is unable to provide any history, I attempted to ask the patient simple questions however his responses are incomprehensible and speech is dysarthric. The patient appears very weak and lethargic at this time, but not in any obvious state of distress, no rapid shallow breathing is observed or accessory muscle use with his breathing. More enxtensive tests are pending and the patient will be admitted for observation of his serious medical complaint. Allergies: Coded Allergies: NO KNOWN ALLERGIES (Unverified Allergy, Unknown, 02/08/15) Medication History Scheduled Amino Acids/Protein Hydrolys (Pro-Stat Liquid), 30 ML ORAL TWICE A DAY, ( Reported) Divalproex Sodium* (Depakote Er*), 500 MG ORAL EVERY 12 HOURS, (Reported) Docusate Sodium* (Colace*), 100 MG ORAL DAILY, (Reported) Gabapentin* (Gabapentin*), 100 MG ORAL THREE TIMES A DAY, (Reported) Haloperidol Lactate (Haldol), 5 MG IJ EVERY 4 HOURS Heparin Sod (Porcine) (Heparin Sodium*), 5,000 UNITS SUBQ EVERY 12 HOURS, ( Reported) Levetiracetam (Keppra), 1,500 MG ORAL EVERY 12 HOURS, (Reported) Phenobarbital (Phenobarbital), 64.8 MG ORAL Q12HR, (Reported) Risperidone* (Risperdal*), 1 MG PO BIDAC, (Reported) Sennosides (Senna), 17.2 MG PO BEDTIME, (Reported) Scheduled PRN Acetaminophen (Tylenol), 650 MG ORAL Q4HR PRN for Fever/Headache/Mild Pain, ( Reported) Bisacodyl (Dulcolax), 10 MG RC QOD PRN for Constipation, (Reported) Hydrocodone Bit/Acetaminophen 5-325* ([place] 5-325 Tablet*), 1 TAB ORAL Q6HR PRN for For Pain, (Reported) Ipratropium/Albuterol Sulfate (DuoNeb 0.5-3(2.5)mg/3ml), 3 ML HHN Q4HR PRN for Shortness of Breath, (Reported) Lorazepam* (Lorazepam*), 0.5 MG ORAL Q6HR PRN for For Anxiety, (Reported) Magnesium Hydroxide* (Milk Of Magnesia*), 30 ML ORAL QHS PRN for Constipation, ( Reported) Na Phos,M-B/Na Phos,Di-Ba* (Fleet Enema*), 133 ML RECTAL QOD PRN for Constipation, (Reported) Ondansetron* (Zofran*), 4 MG ORAL Q4HR PRN for Nausea & Vomiting, (Reported) Polyethylene Glycol 3350* (Miralax*), 17 GM ORAL DAILY PRN for Constipation, ( Reported) Temazepam (Temazepam*), 15 MG ORAL BEDTIME PRN for Insomnia, (Reported) Miscellaneous Medications Nitroglycerin (Nitroglycerin), 0.4 MG SL, (Reported) Patient History Healthcare decision maker N Resuscitation status Advanced Directive on File Past Medical/Surgical History Past Medical/Surgical History: (1) 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 (2) transaminitis, r/o depakote induced vs hepatitis (3) Acute renal failure (4) Acute renal failure (ARF) (5) Seizure disorder (6) chronic seizure disorder, refractory Review of Systems Constitutional: Reports: malaise, weakness Physical Exam General Appearance: lethargic, confused, mild distress Lines, tubes and drains: peripheral HEENT: normocephalic, atraumatic, anicteric, PERRL Neck: non-tender, normal alignment, supple, normal inspection Respiratory/Chest: chest wall non-tender, normal breath sounds, no respiratory distress, no accessory muscle use Breasts: no masses Cardiovascular/Chest: normal peripheral pulses, normal rate, regular rhythm, no JVD Abdomen: normal bowel sounds, non tender, soft, no organomegaly, no mass Genitourinary/Rectal: normal genital exam, normal rectal exam Extremities: non-tender, normal inspection, no calf tenderness, trace edema Skin Exam: normal pigmentation, warm/dry Neurologic: abnormal CN, motor weakness, disoriented, aphasia Last 24 Hour Vital Signs Date Time Temp Pulse Resp B/P (MAP) Pulse Ox O2 Delivery O2 Flow Rate FiO2 02/02/17 20:50 97.8 83 21 98/73 98 Room Air 02/02/17 20:11 97.8 83 21 98/73 98 Room Air 02/02/17 19:11 97.8 77 20 93/7 98 Room Air 02/02/17 18:20 97.8 75 18 96/63 98 Room Air 02/02/17 17:17 97.8 72 20 93/65 98 Room Air 02/02/17 16:11 78 24 100/68 98 Room Air Intake and Output 02/02/17 02/03/17 19:00 07:00 Intake Total 1000 ml Balance 1000 ml Intake IV Total 1000 ml # Voids 1 Laboratory Tests Test 02/02/17 16:30 02/02/17 17:05 White Blood Count 11.6 K/UL (4.8-10.8) H Red Blood Count 3.34 M/UL (4.70-6.10) L Hemoglobin 10.6 G/DL (14.2-18.0) L Hematocrit 33.2 % (42.0-52.0) L Mean Corpuscular Volume 100 FL (80-99) H Mean Corpuscular Hemoglobin 31.8 PG (27.0-31.0) H Mean Corpuscular Hemoglobin Concent 31.9 G/DL (32.0-36.0) L Red Cell Distribution Width 15.3 % (11.6-14.8) H Platelet Count 115 K/UL (150-450) L Mean Platelet Volume 7.3 FL (6.5-10.1) Neutrophils (%) (Auto) 83.3 % (45.0-75.0) H Lymphocytes (%) (Auto) 11.4 % (20.0-45.0) L Monocytes (%) (Auto) 4.5 % (1.0-10.0) Eosinophils (%) (Auto) 0.6 % (0.0-3.0) Basophils (%) (Auto) 0.2 % (0.0-2.0) Sodium Level 153 MMOL/L (136-145) H Potassium Level 6.1 MMOL/L (3.5-5.1) *H Chloride Level 117 MMOL/L (98-107) H Carbon Dioxide Level 22 MMOL/L (21-32) Anion Gap 13 mmol/L (5-15) Blood Urea Nitrogen 84 mg/dL (7-18) H Creatinine 4.4 MG/DL (0.55-1.30) H Estimat Glomerular Filtration Rate 14.4 mL/min (>60) Glucose Level 92 MG/DL (74-106) Lactic Acid Level 0.90 mmol/L (0.66-2.22) Calcium Level 10.0 MG/DL (8.5-10.1) Total Bilirubin 0.2 MG/DL (0.2-1.0) Aspartate Amino Transf (AST/SGOT) 53 U/L (15-37) H Alanine Aminotransferase (ALT/SGPT) 100 U/L (12-78) H Alkaline Phosphatase 301 U/L (46-116) H Total Creatine Kinase 30 U/L (26-308) Troponin I 0.000 ng/mL (0.000-0.056) Total Protein 9.1 G/DL (6.4-8.2) H Albumin 2.2 G/DL (3.4-5.0) L Globulin 6.9 g/dL Albumin/Globulin Ratio 0.3 (1.0-2.7) L Valproic Acid (Depakene) Level 20 MCG/ML (50-100) L Urine Color Pale yellow Urine Appearance Slightly cloudy Urine pH 5 (4.5-8.0) Urine Specific [place] 1.015 (1.005-1.035) Urine Protein 3+ (NEGATIVE) H Urine Glucose (UA) Negative (NEGATIVE) Urine Ketones Negative (NEGATIVE) Urine Occult Blood 5+ (NEGATIVE) H Urine Nitrite Positive (NEGATIVE) H Urine Bilirubin Negative (NEGATIVE) Urine Urobilinogen Normal MG/DL (0.0-1.0) Urine Leukocyte Esterase 3+ (NEGATIVE) H Urine RBC 10-15 /HPF (0 - 0) H Urine WBC 5-10 /HPF (0 - 0) H Urine Squamous Epithelial Cells None /LPF (NONE/OCC) Urine Amorphous Sediment Few /LPF (NONE) H Urine Bacteria Moderate /HPF (NONE) H Height (Feet): 5 Height (Inches): 11.00 Weight (Pounds): 160 Medications Current Medications Medications (Trade) Dose Ordered Sig/Ludy Route PRN Reason Start Time Stop Time Status Last Admin Dose Admin Acetaminophen (Tylenol) 650 mg Q4H PRN ORAL fever 02/02/17 19:45 03/04/17 19:44 Albuterol/ Ipratropium (Albuterol/ Ipratropium) 3 ml Q4H PRN HHN Shortness of Breath 02/02/17 19:45 02/07/17 19:44 Cefepime HCl 1 gm/ Dextrose 55 ml @ 110 mls/hr Q24H IVPB 02/02/17 21:00 02/09/17 20:59 Divalproex Sodium (Depakote ER) 500 mg EVERY 12 HOURS ORAL 02/02/17 21:00 03/04/17 20:59 Gabapentin (Neurontin) 100 mg THREE TIMES A DAY ORAL 02/03/17 09:00 03/05/17 08:59 Heparin Sodium (Porcine) (Heparin 5000 units/ml) 5,000 units EVERY 12 HOURS SUBQ 02/02/17 21:00 03/04/17 20:59 Levetiracetam (Keppra) 1,500 mg EVERY 12 HOURS ORAL 02/02/17 21:00 03/04/17 20:59 Morphine Sulfate (Morphine Sulfate) 2 mg Q4H PRN IVP Moderate Pain (Pain Scale 4-6) 02/02/17 19:45 02/09/17 19:44 Ondansetron HCl (Zofran) 4 mg Q6H PRN IVP Nausea & Vomiting 02/02/17 19:45 03/04/17 19:44 Phenazopyridine HCl (Pyridium) 100 mg DAILY PRN ORAL dysuria 02/02/17 19:45 03/04/17 19:44 Phenobarbital (PHENobarbital) 64.8 mg Q12HR ORAL 02/02/17 21:00 03/04/17 20:59 Polyethylene Glycol (Miralax) 17 gm DAILYPRN PRN ORAL Constipation 02/02/17 19:45 03/04/17 19:44 Risperidone (RisperDAL) 1 mg BEDTIME ORAL 02/02/17 21:00 03/04/17 20:59 Temazepam (Restoril) 15 mg HSPRN PRN ORAL Insomnia 02/02/17 19:45 02/09/17 19:44 Vancomycin HCl 1 gm/Dextrose 275 ml @ 183.3 mls/ hr ONCE ONCE IVPB 02/02/17 23:00 02/03/17 00:30 Assessment/Plan Status: stable, progressing Assessment/Plan Acute Urinary tract infection Acute dehydration Renal failure CVA with R hemiparesis and aphasia Seizure disorder Anemia Schizophrenia Protein calorie malnutrition Plan Broad spectrum IV Abx Infectious Disease requested Follow up with cx IVF hydration Monitor renal parameters, lytes, avoid nephrotoxic agents Renal US Roll Scale Man requested Aspiration precautions, Swallow evaluation BALDEV TRENT Feb 02, 2017 21:47
[2017-02-02] MEDS ORDERED: Depakote 125mg Sprinkles ORAL ONE (22:15)
[2017-02-02] MEDS ORDERED: Vancomycin 1 GM in D5W 275 ML IVPB ONE (23:00)
[2017-02-02] MEDS: PHENobarbital 32.4mg tab ORAL SCH (23:11)
[2017-02-03] VITALS (7 sets, daily range): BP systolic 90–113; BP diastolic 62–85
[2017-02-03 07:18] LABS: ALANINE AMINOTRANSFERASE 87 U/L (12-78); ALBUMIN/GLOBULIN RATIO 0.3 (1.0-2.7); ANION GAP 12 mmol/L (5-15); ASPARTATE AMINO TRANSFERASE 49 U/L (15-37); CALCIUM 9.2 MG/DL (8.5-10.1); CARBON DIOXIDE 22 MMOL/L (21-32); CHLORIDE 122 MMOL/L (98-107); CREATININE 3.6 MG/DL (0.55-1.30); GLOMERULAR FILTRATION RATE 18.1 mL/min (>60); POTASSIUM 5.2 MMOL/L (3.5-5.1); SODIUM 156 MMOL/L (136-145); TOTAL PROTEIN 7.6 G/DL (6.4-8.2)
[2017-02-03 07:22] LABS: BASOPHILS % (AUTO) 1.1 % (0.0-2.0); EOSINOPHILS % (AUTO) 0.5 % (0.0-3.0); LYMPHOCYTES % (AUTO) 10.8 % (20.0-45.0); MEAN CORPUSCULAR HEMOGLOBIN 30.1 PG (27.0-31.0); MEAN CORPUSCULAR HGB CONC 30.7 G/DL (32.0-36.0); MEAN CORPUSCULAR VOLUME 98 FL (80-99); MEAN PLATELET VOLUME 7.4 FL (6.5-10.1); MONOCYTES % (AUTO) 8.5 % (1.0-10.0); NEUTROPHILS % (AUTO) 79.1 % (45.0-75.0); PLATELET COUNT 100 K/UL (150-450); RED BLOOD COUNT 2.98 M/UL (4.70-6.10); RED CELL DISTRIBUTION WIDTH 14.7 % (11.6-14.8); WHITE BLOOD COUNT 10.3 K/UL (4.8-10.8)
--- NOTE | 2017-02-03 07:30 | Pulmonology Progress Note ---
Assessment/Plan Assessment/Plan ASSESSMENT Acute renal failure (likely due to dehydration ) (on admission 84/4.4) UTI Dehydration e/lyte imbalance ( hyper Na-153, hyper K-6.1) elevated LFT dysphagia, G tube hx of CVA with R hemiparesis and aphasia seizure disorder anemia schizophrenia protein calorie malnutrition PLAN OF CARE Abx ID follows fup with cx IVF Monitor renal parameters, lytes, avoid nephrotoxic Na and K still elevated creat trending down renal US Nephro eval Aspiration precautions, swallow eval Seizure precautions, continue Depakote, Keppra, Phenobarbital O2 HHN prn continue Risperdal Venous Duplex BLE dietary eval monitor counts, transfuse prn, anemia w/up due to trend down in HH , check stool OB trend LFT , elevated on prior admission as well, hepatitis panel with evidence of immunity hep A and B, no hep C) elevated LFT , trending down transfer to [facility] floor case discussed and evaluated by supervising physician Subjective Allergies: Coded Allergies: NO KNOWN ALLERGIES (Unverified Allergy, Unknown, 02/08/15) Subjective leukocytosis resolved afebrile HH trending down LFT and creat trending down still elevated Na and K no chest pain, no SOB Objective Last 24 Hour Vital Signs Date Time Temp Pulse Resp B/P (MAP) Pulse Ox O2 Delivery O2 Flow Rate FiO2 02/03/17 04:00 97.0 70 23 95/62 97 Room Air 02/03/17 04:00 76 02/03/17 00:42 97.0 74 23 90/67 97 Room Air 02/03/17 00:00 73 02/02/17 21:00 97.0 74 22 90/63 96 Room Air 02/02/17 20:57 76 02/02/17 20:50 97.8 83 21 98/73 98 Room Air 02/02/17 20:11 97.8 83 21 98/73 98 Room Air 02/02/17 19:11 97.8 77 20 93/7 98 Room Air 02/02/17 18:20 97.8 75 18 96/63 98 Room Air 02/02/17 17:17 97.8 72 20 93/65 98 Room Air 02/02/17 16:11 78 24 100/68 98 Room Air Intake and Output 02/03/17 02/04/17 19:00 07:00 Intake Total 75 ml Balance 75 ml IV Total 75 ml General Appearance: no acute distress, other - awake, bedridden responsive aphasic HEENT: normocephalic, atraumatic, anicteric, mucous membranes moist Respiratory/Chest: lungs clear, no respiratory distress Cardiovascular: normal rate, regular rhythm - SR on tele Abdomen: normal bowel sounds, soft, non tender, non distended Extremities: no edema, pedal pulses normal Neurologic/Psychiatric: abnormal gait, alert, responsive, other - R hemiparesis Musculoskeletal: atrophy - BLE Laboratory Tests 02/02/17 16:30: White Blood Count 11.6H, Red Blood Count 3.34L, Hemoglobin 10.6L, Hematocrit 33.2L, Mean Corpuscular Volume 100H, Mean Corpuscular Hemoglobin 31.8H, Mean Corpuscular Hemoglobin Concent 31.9L, Red Cell Distribution Width 15.3H, Platelet Count 115L, Mean Platelet Volume 7.3, Neutrophils (%) (Auto) 83.3H, Lymphocytes (%) (Auto) 11.4L, Monocytes (%) (Auto) 4.5, Eosinophils (%) (Auto) 0.6, Basophils (%) (Auto) 0.2, Sodium Level 153H, Potassium Level 6.1*H, Chloride Level 117H, Carbon Dioxide Level 22, Anion Gap 13, Blood Urea Nitrogen 84H, Creatinine 4.4H, Estimat Glomerular Filtration Rate 14.4, Glucose Level 92 , Lactic Acid Level 0.90, Calcium Level 10.0, Total Bilirubin 0.2, Aspartate Amino Transf (AST/SGOT) 53H, Alanine Aminotransferase (ALT/SGPT) 100H, Alkaline Phosphatase 301H, Total Creatine Kinase 30, Troponin I 0.000, Total Protein 9.1H , Albumin 2.2L, Globulin 6.9, Albumin/Globulin Ratio 0.3L, Valproic Acid ( Depakene) Level 20L 02/02/17 17:05: Urine Color Pale yellow, Urine Appearance Slightly cloudy, Urine pH 5, Urine Specific [place] 1.015, Urine Protein 3+H, Urine Glucose (UA) Negative, Urine Ketones Negative, Urine Occult Blood 5+H, Urine Nitrite PositiveH, Urine Bilirubin Negative, Urine Urobilinogen Normal, Urine Leukocyte Esterase 3+H, Urine RBC 10-15H, Urine WBC 5-10H, Urine Squamous Epithelial Cells None, Urine Amorphous Sediment FewH, Urine Bacteria ModerateH 02/03/17 06:25: White Blood Count 10.3, Red Blood Count 2.98L, Hemoglobin 9.0L, Hematocrit 29.2L , Mean Corpuscular Volume 98, Mean Corpuscular Hemoglobin 30.1, Mean Corpuscular Hemoglobin Concent 30.7L, Red Cell Distribution Width 14.7, Platelet Count 100L, Mean Platelet Volume 7.4, Neutrophils (%) (Auto) 79.1H, Lymphocytes (%) (Auto) 10.8L, Monocytes (%) (Auto) 8.5, Eosinophils (%) (Auto) 0.5, Basophils (%) (Auto) 1.1, Sodium Level 156H, Potassium Level 5.2H, Chloride Level 122H, Carbon Dioxide Level 22, Anion Gap 12, Blood Urea Nitrogen 78H, Creatinine 3.6H, Estimat Glomerular Filtration Rate 18.1, Glucose Level 68L , Calcium Level 9.2, Total Bilirubin 0.2, Aspartate Amino Transf (AST/SGOT) 49H , Alanine Aminotransferase (ALT/SGPT) 87H, Alkaline Phosphatase 250H, Total Protein 7.6, Albumin 1.9L, Globulin 5.7, Albumin/Globulin Ratio 0.3L Current Medications Medications (Trade) Dose Ordered Sig/Ludy Route PRN Reason Start Time Stop Time Status Last Admin Dose Admin Acetaminophen (Tylenol) 650 mg Q4H PRN ORAL fever 02/02/17 19:45 03/04/17 19:44 Albuterol/ Ipratropium (Albuterol/ Ipratropium) 3 ml Q4H PRN HHN Shortness of Breath 02/02/17 19:45 02/07/17 19:44 Cefepime HCl 1 gm/ Dextrose 55 ml @ 110 mls/hr Q24H IVPB 02/02/17 21:00 02/09/17 20:59 02/02/17 21:47 Dextrose 1,000 ml @ 75 mls/hr [id number] IV 02/02/17 22:45 03/04/17 22:44 02/02/17 23:09 Divalproex Sodium (Depakote Sprinkles) 500 mg EVERY 12 HOURS ORAL 02/03/17 09:00 03/05/17 08:59 Gabapentin (Neurontin) 100 mg THREE TIMES A DAY ORAL 02/03/17 09:00 03/05/17 08:59 Levetiracetam (Keppra) 1,500 mg EVERY 12 HOURS ORAL 02/02/17 21:00 03/04/17 20:59 02/02/17 21:48 Morphine Sulfate (Morphine Sulfate) 2 mg Q4H PRN IVP Moderate Pain (Pain Scale 4-6) 02/02/17 19:45 02/09/17 19:44 Ondansetron HCl (Zofran) 4 mg Q6H PRN IVP Nausea & Vomiting 02/02/17 19:45 03/04/17 19:44 Phenazopyridine HCl (Pyridium) 100 mg DAILY PRN ORAL dysuria 02/02/17 19:45 03/04/17 19:44 Phenobarbital (PHENobarbital) 64.8 mg Q12HR ORAL 02/02/17 21:00 03/04/17 20:59 02/02/17 23:11 Polyethylene Glycol (Miralax) 17 gm DAILYPRN PRN ORAL Constipation 02/02/17 19:45 03/04/17 19:44 Risperidone (RisperDAL) 1 mg BEDTIME ORAL 02/02/17 21:00 03/04/17 20:59 02/02/17 21:48 Temazepam (Restoril) 15 mg HSPRN PRN ORAL Insomnia 02/02/17 19:45 02/09/17 19:44 Santi LomeliWmchealthAme [place] NP Feb 03, 2017 07:30
[2017-02-03] MEDS: PHENobarbital 32.4mg tab ORAL SCH ×2 (08:12→21:46)
[2017-02-03] MEDS ORDERED: Depakote 125mg Sprinkles ORAL SCH (09:00)
--- NOTE | 2017-02-03 10:10 | Consultation ---
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 in ED found to have ADOLFO (cr 4.4, upon discharge of last admission was 1.2), dehydration, elevated LFTs (however improved from prior admission). There was concern for UTI so started on IV Vanco and Cefepime. OF note patient recently admitted here on 12/25-12/29 with R leg cellulitis and treated with Ancef/Doxy, discharged on PO Keflex and Doxy for a total of 14 days (end date: 01/07/17) Allergies: Coded Allergies: NO KNOWN ALLERGIES (Unverified Allergy, Unknown, 02/08/15) Medication History Scheduled Amino Acids/Protein Hydrolys (Pro-Stat Liquid), 30 ML ORAL TWICE A DAY, ( Reported) Divalproex Sodium* (Depakote Er*), 500 MG ORAL EVERY 12 HOURS, (Reported) Docusate Sodium* (Colace*), 100 MG ORAL DAILY, (Reported) Gabapentin* (Gabapentin*), 100 MG ORAL THREE TIMES A DAY, (Reported) Heparin Sod (Porcine) (Heparin Sodium*), 5,000 UNITS SUBQ EVERY 12 HOURS, ( Reported) Levetiracetam (Keppra), 1,500 MG ORAL EVERY 12 HOURS, (Reported) Phenobarbital (Phenobarbital), 64.8 MG ORAL Q12HR, (Reported) Risperidone* (Risperdal*), 1 MG PO BIDAC, (Reported) Sennosides (Senna), 17.2 MG PO BEDTIME, (Reported) Scheduled PRN Acetaminophen (Tylenol), 650 MG ORAL Q4HR PRN for Fever/Headache/Mild Pain, ( Reported) Bisacodyl (Dulcolax), 10 MG RC QOD PRN for Constipation, (Reported) Hydrocodone Bit/Acetaminophen 5-325* ([place] 5-325 Tablet*), 1 TAB ORAL Q6HR PRN for For Pain, (Reported) Ipratropium/Albuterol Sulfate (DuoNeb 0.5-3(2.5)mg/3ml), 3 ML HHN Q4HR PRN for Shortness of Breath, (Reported) Lorazepam* (Lorazepam*), 0.5 MG ORAL Q6HR PRN for For Anxiety, (Reported) Magnesium Hydroxide* (Milk Of Magnesia*), 30 ML ORAL QHS PRN for Constipation, ( Reported) Na Phos,M-B/Na Phos,Di-Ba* (Fleet Enema*), 133 ML RECTAL QOD PRN for Constipation, (Reported) Ondansetron* (Zofran*), 4 MG ORAL Q4HR PRN for Nausea & Vomiting, (Reported) Polyethylene Glycol 3350* (Miralax*), 17 GM ORAL DAILY PRN for Constipation, ( Reported) Temazepam (Temazepam*), 15 MG ORAL BEDTIME PRN for Insomnia, (Reported) Miscellaneous Medications Nitroglycerin (Nitroglycerin), 0.4 MG SL, (Reported) Discontinued Medications Al Hydroxide/mg Hydroxide (Mag-Al Liquid), 30 ML PO Q4HR PRN for For Pain, ( Reported) Discontinued Reason: MD discontinued med Cephalexin* (Keflex*), 500 MG ORAL EVERY 6 HOURS Discontinued Reason: Therapy completed Doxycycline Hyclate (Doxycycline Hyclate), 150 MG PO DAILY Discontinued Reason: Therapy completed Ferrous Sulfate (Ferrous Sulfate), 325 MG ORAL BID, (Reported) Discontinued Reason: MD discontinued med Lactulose (Lactulose*), 30 ML ORAL, (Reported) Discontinued Reason: MD discontinued med Tramadol Hcl* (Ultram*), 50 MG ORAL Q6H PRN for For Pain, (Reported) Discontinued Reason: MD discontinued med Valproate Sodium (Depakene), 500 MG PO BID, (Reported) Discontinued Reason: MD discontinued med Zolpidem Tartrate* (Ambien*), 5 MG ORAL BEDTIME PRN for Insomnia, (Reported) Discontinued Reason: MD discontinued med Patient History Healthcare decision maker N Resuscitation status Full Code Advanced Directive on File No Patient History Narrative PMhx as above SHx lives [place] Fx non contributory Review of Systems ROS Narrative unable to obtain Physical Exam Physical Exam Narrative General Appearance: other - aphasic, nad HEENT: normocephalic, atraumatic, bilateral eye PERRL, bilateral eye EOMI, moist mucus membranes Neck: normal inspection, full range of motion, supple Respiratory: normal inspection, lungs clear, normal breath sounds, no respiratory distress, no retraction, no wheezing, speaking full sentences, chest symmetrical Cardiovascular : normal inspection, regular rate, rhythm, normal capillary refill Gastrointestinal: normal inspection, non tender, soft, non-distended, no guarding Musculoskeletal: normal inspection, back normal, normal range of motion, non- tender Neurologic: other - aphasic, not ff commands Psychiatric: other - aphasic Skin: normal inspection, normal color, no rash, warm/dry, well hydrated, normal turgor Last 24 Hour Vital Signs Date Time Temp Pulse Resp B/P (MAP) Pulse Ox O2 Delivery O2 Flow Rate FiO2 02/03/17 08:00 97.5 73 20 113/85 97 Room Air 02/03/17 07:49 75 02/03/17 07:20 76 20 Room Air 21 02/03/17 04:00 97.0 70 23 95/62 97 Room Air 02/03/17 04:00 76 02/03/17 00:42 97.0 74 23 90/67 97 Room Air 02/03/17 00:00 73 02/02/17 21:00 97.0 74 22 90/63 96 Room Air 02/02/17 20:57 76 02/02/17 20:50 97.8 83 21 98/73 98 Room Air 02/02/17 20:11 97.8 83 21 98/73 98 Room Air 02/02/17 19:11 97.8 77 20 93/7 98 Room Air 02/02/17 18:20 97.8 75 18 96/63 98 Room Air 02/02/17 17:17 97.8 72 20 93/65 98 Room Air 02/02/17 16:11 78 24 100/68 98 Room Air Intake and Output 02/03/17 02/04/17 19:00 07:00 Intake Total 420 ml Balance 420 ml Intake Oral 120 ml IV Total 300 ml # Voids 2 Laboratory Tests Test 02/02/17 16:30 02/02/17 17:05 02/03/17 06:25 White Blood Count 11.6 K/UL (4.8-10.8) H 10.3 K/UL (4.8-10.8) Red Blood Count 3.34 M/UL (4.70-6.10) L 2.98 M/UL (4.70-6.10) L Hemoglobin 10.6 G/DL (14.2-18.0) L 9.0 G/DL (14.2-18.0) L Hematocrit 33.2 % (42.0-52.0) L 29.2 % (42.0-52.0) L Mean Corpuscular Volume 100 FL (80-99) H 98 FL (80-99) Mean Corpuscular Hemoglobin 31.8 PG (27.0-31.0) H 30.1 PG (27.0-31.0) Mean Corpuscular Hemoglobin Concent 31.9 G/DL (32.0-36.0) L 30.7 G/DL (32.0-36.0) L Red Cell Distribution Width 15.3 % (11.6-14.8) H 14.7 % (11.6-14.8) Platelet Count 115 K/UL (150-450) L 100 K/UL (150-450) L Mean Platelet Volume 7.3 FL (6.5-10.1) 7.4 FL (6.5-10.1) Neutrophils (%) (Auto) 83.3 % (45.0-75.0) H 79.1 % (45.0-75.0) H Lymphocytes (%) (Auto) 11.4 % (20.0-45.0) L 10.8 % (20.0-45.0) L Monocytes (%) (Auto) 4.5 % (1.0-10.0) 8.5 % (1.0-10.0) Eosinophils (%) (Auto) 0.6 % (0.0-3.0) 0.5 % (0.0-3.0) Basophils (%) (Auto) 0.2 % (0.0-2.0) 1.1 % (0.0-2.0) Sodium Level 153 MMOL/L (136-145) H 156 MMOL/L (136-145) H Potassium Level 6.1 MMOL/L (3.5-5.1) *H 5.2 MMOL/L (3.5-5.1) H Chloride Level 117 MMOL/L (98-107) H 122 MMOL/L (98-107) H Carbon Dioxide Level 22 MMOL/L (21-32) 22 MMOL/L (21-32) Anion Gap 13 mmol/L (5-15) 12 mmol/L (5-15) Blood Urea Nitrogen 84 mg/dL (7-18) H 78 mg/dL (7-18) H Creatinine 4.4 MG/DL (0.55-1.30) H 3.6 MG/DL (0.55-1.30) H Estimat Glomerular Filtration Rate 14.4 mL/min (>60) 18.1 mL/min (>60) Glucose Level 92 MG/DL (74-106) 68 MG/DL (74-106) L Lactic Acid Level 0.90 mmol/L (0.66-2.22) Calcium Level 10.0 MG/DL (8.5-10.1) 9.2 MG/DL (8.5-10.1) Total Bilirubin 0.2 MG/DL (0.2-1.0) 0.2 MG/DL (0.2-1.0) Aspartate Amino Transf (AST/SGOT) 53 U/L (15-37) H 49 U/L (15-37) H Alanine Aminotransferase (ALT/SGPT) 100 U/L (12-78) H 87 U/L (12-78) H Alkaline Phosphatase 301 U/L (46-116) H 250 U/L (46-116) H Total Creatine Kinase 30 U/L (26-308) Troponin I 0.000 ng/mL (0.000-0.056) Total Protein 9.1 G/DL (6.4-8.2) H 7.6 G/DL (6.4-8.2) Albumin 2.2 G/DL (3.4-5.0) L 1.9 G/DL (3.4-5.0) L Globulin 6.9 g/dL 5.7 g/dL Albumin/Globulin Ratio 0.3 (1.0-2.7) L 0.3 (1.0-2.7) L Valproic Acid (Depakene) Level 20 MCG/ML (50-100) L Urine Color Pale yellow Urine Appearance Slightly cloudy Urine pH 5 (4.5-8.0) Urine Specific [place] 1.015 (1.005-1.035) Urine Protein 3+ (NEGATIVE) H Urine Glucose (UA) Negative (NEGATIVE) Urine Ketones Negative (NEGATIVE) Urine Occult Blood 5+ (NEGATIVE) H Urine Nitrite Positive (NEGATIVE) H Urine Bilirubin Negative (NEGATIVE) Urine Urobilinogen Normal MG/DL (0.0-1.0) Urine Leukocyte Esterase 3+ (NEGATIVE) H Urine RBC 10-15 /HPF (0 - 0) H Urine WBC 5-10 /HPF (0 - 0) H Urine Squamous Epithelial Cells None /LPF (NONE/OCC) Urine Amorphous Sediment Few /LPF (NONE) H Urine Bacteria Moderate /HPF (NONE) H Microbiology Date/Time Source Procedure Growth Status 02/02/17 17:05 Urine,Clean Catch Urine Culture - Preliminary Gram Negative Bacillus 1 Resulted Height (Feet): 5 Height (Inches): 11.00 Weight (Pounds): 160 Medications Current Medications Medications (Trade) Dose Ordered Sig/Ludy Route PRN Reason Start Time Stop Time Status Last Admin Dose Admin Acetaminophen (Tylenol) 650 mg Q4H PRN ORAL fever 02/02/17 19:45 03/04/17 19:44 Albuterol/ Ipratropium (Albuterol/ Ipratropium) 3 ml Q4H PRN HHN Shortness of Breath 02/02/17 19:45 02/07/17 19:44 Cefepime HCl 1 gm/ Dextrose 55 ml @ 110 mls/hr Q24H IVPB 02/02/17 21:00 02/09/17 20:59 02/02/17 21:47 Dextrose 1,000 ml @ 75 mls/hr [id number] IV 02/02/17 22:45 03/04/17 22:44 02/02/17 23:09 Divalproex Sodium (Depakote Sprinkles) 500 mg EVERY 12 HOURS ORAL 02/03/17 09:00 03/05/17 08:59 02/03/17 08:11 Gabapentin (Neurontin) 100 mg THREE TIMES A DAY ORAL 02/03/17 09:00 03/05/17 08:59 02/03/17 08:11 Levetiracetam (Keppra) 1,500 mg EVERY 12 HOURS ORAL 02/02/17 21:00 03/04/17 20:59 02/03/17 08:12 Morphine Sulfate (Morphine Sulfate) 2 mg Q4H PRN IVP Moderate Pain (Pain Scale 4-6) 02/02/17 19:45 02/09/17 19:44 Ondansetron HCl (Zofran) 4 mg Q6H PRN IVP Nausea & Vomiting 02/02/17 19:45 03/04/17 19:44 Phenazopyridine HCl (Pyridium) 100 mg DAILY PRN ORAL dysuria 02/02/17 19:45 03/04/17 19:44 Phenobarbital (PHENobarbital) 64.8 mg Q12HR ORAL 02/02/17 21:00 03/04/17 20:59 02/03/17 08:12 Polyethylene Glycol (Miralax) 17 gm DAILYPRN PRN ORAL Constipation 02/02/17 19:45 03/04/17 19:44 Risperidone (RisperDAL) 1 mg BEDTIME ORAL 02/02/17 21:00 03/04/17 20:59 02/02/17 21:48 Temazepam (Restoril) 15 mg HSPRN PRN ORAL Insomnia 02/02/17 19:45 02/09/17 19:44 Assessment/Plan Assessment/Plan Abx: Vanco 02/02- Cefepime 02/02 Ceftriaxone x1 02/02 Assesment: ADOLFO/ Dehydration Mild leukocytosis, resolved -CXR: Bilateral basilar atelectasis versus scarring, favor the latter as findings are similar to the previous study of over one month ago No acute process otherwise POsible UTI -u/a WBC 5-10, nit +, leuk +3; ucx P -hx assymptomatic bacteriuria -uCx 12/25 >100K P.mirabilis (S. 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 Will continue to follow along with you. Discussed with JOSELIN. Nataliia Alfaro M.D. Feb 03, 2017 10:10
--- NOTE | 2017-02-03 11:09 | Diagnostic Imaging Report ---
Indication: Shortness of breath Technique: One view of the chest Comparison: 12/25/2016 Findings: There is atelectasis or scarring again demonstrated at the left lung base. Atelectasis or scarring is also seen at the right lung base. Upper lung collins are clear. Pleural spaces are clear. Heart size is normal. There is mild thoracic scoliotic deformity. Impression: Bilateral basilar atelectasis versus scarring, favor the latter as findings are similar to the previous study of over one month ago No acute process otherwise
--- NOTE | 2017-02-03 13:26 | Wound Care Consultation ---
Wound Assessment Wound Assessment #1: Wound Number: 1 Wound Present on Admission: Yes New Wound: No Status Change of Wound: No Wound Location Body Site Modif: right, mid, lateral Wound Location Body Site: foot Wound Type: pressure ulcer Mendez Test: Does not Mendez Pressure Ulcer Stage: Deep Tissue Injury Wound Thickness: Full Thickness Wound Length: 2.5 Wound Width: 2.0 Wound Depth: utd Percent of Wound Purple/Maroon: 100 Wound Drainage Amount: None Wound Drainage Odor: None/Absent Tissue Surrounding Wound: Erythemic Wound General Appearance: Reddened - maroon Wound Assessment #2: Wound Number: 2 Wound Present on Admission: Yes New Wound: No Status Change of Wound: No Wound Location Body Site Modif: right, lateral Wound Location Body Site: malleolus/ankle Wound Type: pressure ulcer Mendez Test: Does not Mendez Pressure Ulcer Stage: I Wound Length: 2.0 Wound Width: 2.0 Percent of Wound Jet/Red: 100 Wound Drainage Amount: None Wound Drainage Odor: None/Absent Tissue Surrounding Wound: Erythemic Wound General Appearance: Reddened Wound Comment #1 Right lateral mid foot DTI pressure ulcer #2 Right lateral malleolus stage I pressure ulcer #3 Callus on Right lateral 5th toe Recommendation -Local wound care per protocol -Keep clean and dry -Turn and reposition -Optimize nutrition -Heel protector on both heels -Low air loss SPR mattress -Offload both heels -Assess and f/u accordingly for any changes CHEMA ANDERSON RN Feb 03, 2017 13:26
[2017-02-03] MEDS: Sodium Polystyrene Sulfonate 15gm Powder ORAL ONE ×2 (13:45→16:32)
--- NOTE | 2017-02-03 14:31 | Diagnostic Imaging Report ---
APPROVED REPORT CPT Code: 78909 Present Symptoms Comments: Screening BILATERAL: Imaging reveals a patent deep venous system bilaterally. There is no evidence of thrombus within the femoral, popliteal or tibial segments. The greater saphenous veins are also within normal limits. Doppler indicates normal spontaneous flow within these segments.
--- NOTE | 2017-02-03 15:36 | Consultation ---
History of Present Illness General Chief Complaint: Generalized Weakness Present Illness HPI 51-year-old male history of schizophrenia, aphasia after CVA, right-sided hemiparesis, generalized muscle weakness, sent in for generalized muscle weakness the pt makes incomprehensible sounds the pt is agitated and attempts to come out of bed Allergies: Coded Allergies: NO KNOWN ALLERGIES (Unverified Allergy, Unknown, 02/08/15) Medication History Scheduled Amino Acids/Protein Hydrolys (Pro-Stat Liquid), 30 ML ORAL TWICE A DAY, ( Reported) Divalproex Sodium* (Depakote Er*), 500 MG ORAL EVERY 12 HOURS, (Reported) Docusate Sodium* (Colace*), 100 MG ORAL DAILY, (Reported) Gabapentin* (Gabapentin*), 100 MG ORAL THREE TIMES A DAY, (Reported) Heparin Sod (Porcine) (Heparin Sodium*), 5,000 UNITS SUBQ EVERY 12 HOURS, ( Reported) Levetiracetam (Keppra), 1,500 MG ORAL EVERY 12 HOURS, (Reported) Phenobarbital (Phenobarbital), 64.8 MG ORAL Q12HR, (Reported) Risperidone* (Risperdal*), 1 MG PO BIDAC, (Reported) Sennosides (Senna), 17.2 MG PO BEDTIME, (Reported) Scheduled PRN Acetaminophen (Tylenol), 650 MG ORAL Q4HR PRN for Fever/Headache/Mild Pain, ( Reported) Bisacodyl (Dulcolax), 10 MG RC QOD PRN for Constipation, (Reported) Hydrocodone Bit/Acetaminophen 5-325* ([place] 5-325 Tablet*), 1 TAB ORAL Q6HR PRN for For Pain, (Reported) Ipratropium/Albuterol Sulfate (DuoNeb 0.5-3(2.5)mg/3ml), 3 ML HHN Q4HR PRN for Shortness of Breath, (Reported) Lorazepam* (Lorazepam*), 0.5 MG ORAL Q6HR PRN for For Anxiety, (Reported) Magnesium Hydroxide* (Milk Of Magnesia*), 30 ML ORAL QHS PRN for Constipation, ( Reported) Na Phos,M-B/Na Phos,Di-Ba* (Fleet Enema*), 133 ML RECTAL QOD PRN for Constipation, (Reported) Ondansetron* (Zofran*), 4 MG ORAL Q4HR PRN for Nausea & Vomiting, (Reported) Polyethylene Glycol 3350* (Miralax*), 17 GM ORAL DAILY PRN for Constipation, ( Reported) Temazepam (Temazepam*), 15 MG ORAL BEDTIME PRN for Insomnia, (Reported) Miscellaneous Medications Nitroglycerin (Nitroglycerin), 0.4 MG SL, (Reported) Discontinued Medications Al Hydroxide/mg Hydroxide (Mag-Al Liquid), 30 ML PO Q4HR PRN for For Pain, ( Reported) Discontinued Reason: MD discontinued med Cephalexin* (Keflex*), 500 MG ORAL EVERY 6 HOURS Discontinued Reason: Therapy completed Doxycycline Hyclate (Doxycycline Hyclate), 150 MG PO DAILY Discontinued Reason: Therapy completed Ferrous Sulfate (Ferrous Sulfate), 325 MG ORAL BID, (Reported) Discontinued Reason: MD discontinued med Lactulose (Lactulose*), 30 ML ORAL, (Reported) Discontinued Reason: MD discontinued med Tramadol Hcl* (Ultram*), 50 MG ORAL Q6H PRN for For Pain, (Reported) Discontinued Reason: MD discontinued med Valproate Sodium (Depakene), 500 MG PO BID, (Reported) Discontinued Reason: MD discontinued med Zolpidem Tartrate* (Ambien*), 5 MG ORAL BEDTIME PRN for Insomnia, (Reported) Discontinued Reason: MD discontinued med Patient History Healthcare decision maker N Resuscitation status Full Code Advanced Directive on File No Physical Exam Last 24 Hour Vital Signs Date Time Temp Pulse Resp B/P (MAP) Pulse Ox O2 Delivery O2 Flow Rate FiO2 02/03/17 11:56 97.8 79 19 99/65 97 Room Air 02/03/17 11:27 78 02/03/17 08:00 97.5 73 20 113/85 97 Room Air 02/03/17 07:49 75 02/03/17 07:20 76 20 Room Air 21 02/03/17 04:00 97.0 70 23 95/62 97 Room Air 02/03/17 04:00 76 02/03/17 00:42 97.0 74 23 90/67 97 Room Air 02/03/17 00:00 73 02/02/17 21:00 97.0 74 22 90/63 96 Room Air 02/02/17 20:57 76 02/02/17 20:50 97.8 83 21 98/73 98 Room Air 02/02/17 20:11 97.8 83 21 98/73 98 Room Air 02/02/17 19:11 97.8 77 20 93/7 98 Room Air 02/02/17 18:20 97.8 75 18 96/63 98 Room Air 02/02/17 17:17 97.8 72 20 93/65 98 Room Air 02/02/17 16:11 78 24 100/68 98 Room Air Intake and Output 02/03/17 02/04/17 19:00 07:00 Intake Total 720 ml Balance 720 ml Intake Oral 120 ml IV Total 600 ml # Voids 2 Laboratory Tests Test 02/02/17 16:30 02/02/17 17:05 02/03/17 06:25 White Blood Count 11.6 K/UL (4.8-10.8) H 10.3 K/UL (4.8-10.8) Red Blood Count 3.34 M/UL (4.70-6.10) L 2.98 M/UL (4.70-6.10) L Hemoglobin 10.6 G/DL (14.2-18.0) L 9.0 G/DL (14.2-18.0) L Hematocrit 33.2 % (42.0-52.0) L 29.2 % (42.0-52.0) L Mean Corpuscular Volume 100 FL (80-99) H 98 FL (80-99) Mean Corpuscular Hemoglobin 31.8 PG (27.0-31.0) H 30.1 PG (27.0-31.0) Mean Corpuscular Hemoglobin Concent 31.9 G/DL (32.0-36.0) L 30.7 G/DL (32.0-36.0) L Red Cell Distribution Width 15.3 % (11.6-14.8) H 14.7 % (11.6-14.8) Platelet Count 115 K/UL (150-450) L 100 K/UL (150-450) L Mean Platelet Volume 7.3 FL (6.5-10.1) 7.4 FL (6.5-10.1) Neutrophils (%) (Auto) 83.3 % (45.0-75.0) H 79.1 % (45.0-75.0) H Lymphocytes (%) (Auto) 11.4 % (20.0-45.0) L 10.8 % (20.0-45.0) L Monocytes (%) (Auto) 4.5 % (1.0-10.0) 8.5 % (1.0-10.0) Eosinophils (%) (Auto) 0.6 % (0.0-3.0) 0.5 % (0.0-3.0) Basophils (%) (Auto) 0.2 % (0.0-2.0) 1.1 % (0.0-2.0) Sodium Level 153 MMOL/L (136-145) H 156 MMOL/L (136-145) H Potassium Level 6.1 MMOL/L (3.5-5.1) *H 5.2 MMOL/L (3.5-5.1) H Chloride Level 117 MMOL/L (98-107) H 122 MMOL/L (98-107) H Carbon Dioxide Level 22 MMOL/L (21-32) 22 MMOL/L (21-32) Anion Gap 13 mmol/L (5-15) 12 mmol/L (5-15) Blood Urea Nitrogen 84 mg/dL (7-18) H 78 mg/dL (7-18) H Creatinine 4.4 MG/DL (0.55-1.30) H 3.6 MG/DL (0.55-1.30) H Estimat Glomerular Filtration Rate 14.4 mL/min (>60) 18.1 mL/min (>60) Glucose Level 92 MG/DL (74-106) 68 MG/DL (74-106) L Lactic Acid Level 0.90 mmol/L (0.66-2.22) Calcium Level 10.0 MG/DL (8.5-10.1) 9.2 MG/DL (8.5-10.1) Total Bilirubin 0.2 MG/DL (0.2-1.0) 0.2 MG/DL (0.2-1.0) Aspartate Amino Transf (AST/SGOT) 53 U/L (15-37) H 49 U/L (15-37) H Alanine Aminotransferase (ALT/SGPT) 100 U/L (12-78) H 87 U/L (12-78) H Alkaline Phosphatase 301 U/L (46-116) H 250 U/L (46-116) H Total Creatine Kinase 30 U/L (26-308) Troponin I 0.000 ng/mL (0.000-0.056) Total Protein 9.1 G/DL (6.4-8.2) H 7.6 G/DL (6.4-8.2) Albumin 2.2 G/DL (3.4-5.0) L 1.9 G/DL (3.4-5.0) L Globulin 6.9 g/dL 5.7 g/dL Albumin/Globulin Ratio 0.3 (1.0-2.7) L 0.3 (1.0-2.7) L Valproic Acid (Depakene) Level 20 MCG/ML (50-100) L Urine Color Pale yellow Urine Appearance Slightly cloudy Urine pH 5 (4.5-8.0) Urine Specific [place] 1.015 (1.005-1.035) Urine Protein 3+ (NEGATIVE) H Urine Glucose (UA) Negative (NEGATIVE) Urine Ketones Negative (NEGATIVE) Urine Occult Blood 5+ (NEGATIVE) H Urine Nitrite Positive (NEGATIVE) H Urine Bilirubin Negative (NEGATIVE) Urine Urobilinogen Normal MG/DL (0.0-1.0) Urine Leukocyte Esterase 3+ (NEGATIVE) H Urine RBC 10-15 /HPF (0 - 0) H Urine WBC 5-10 /HPF (0 - 0) H Urine Squamous Epithelial Cells None /LPF (NONE/OCC) Urine Amorphous Sediment Few /LPF (NONE) H Urine Bacteria Moderate /HPF (NONE) H Microbiology Date/Time Source Procedure Growth Status 02/02/17 17:05 Urine,Clean Catch Urine Culture - Preliminary Gram Negative Bacillus 1 Resulted Height (Feet): 5 Height (Inches): 11.00 Weight (Pounds): 160 Medications Current Medications Medications (Trade) Dose Ordered Sig/Ludy Route PRN Reason Start Time Stop Time Status Last Admin Dose Admin Acetaminophen (Tylenol) 650 mg Q4H PRN ORAL fever 02/02/17 19:45 03/04/17 19:44 Albuterol/ Ipratropium (Albuterol/ Ipratropium) 3 ml Q4H PRN HHN Shortness of Breath 02/02/17 19:45 02/07/17 19:44 Cefepime HCl 1 gm/ Dextrose 55 ml @ 110 mls/hr Q24H IVPB 02/02/17 21:00 02/09/17 20:59 02/02/17 21:47 Dextrose 1,000 ml @ 75 mls/hr [id number] IV 02/02/17 22:45 03/04/17 22:44 02/03/17 12:05 Divalproex Sodium (Depakote Sprinkles) 500 mg EVERY 12 HOURS ORAL 02/03/17 09:00 03/05/17 08:59 02/03/17 08:11 Gabapentin (Neurontin) 100 mg THREE TIMES A DAY ORAL 02/03/17 09:00 03/05/17 08:59 02/03/17 12:53 Levetiracetam (Keppra) 1,500 mg EVERY 12 HOURS ORAL 02/02/17 21:00 03/04/17 20:59 02/03/17 08:12 Morphine Sulfate (Morphine Sulfate) 2 mg Q4H PRN IVP Moderate Pain (Pain Scale 4-6) 02/02/17 19:45 02/09/17 19:44 Ondansetron HCl (Zofran) 4 mg Q6H PRN IVP Nausea & Vomiting 02/02/17 19:45 03/04/17 19:44 Phenazopyridine HCl (Pyridium) 100 mg DAILY PRN ORAL dysuria 02/02/17 19:45 03/04/17 19:44 Phenobarbital (PHENobarbital) 64.8 mg Q12HR ORAL 02/02/17 21:00 03/04/17 20:59 02/03/17 08:12 Polyethylene Glycol (Miralax) 17 gm DAILYPRN PRN ORAL Constipation 02/02/17 19:45 03/04/17 19:44 Risperidone (RisperDAL) 1 mg BEDTIME ORAL 02/02/17 21:00 03/04/17 20:59 02/02/17 21:48 Temazepam (Restoril) 15 mg HSPRN PRN ORAL Insomnia 02/02/17 19:45 02/09/17 19:44 Candido Tam M.D. Feb 03, 2017 15:36
--- NOTE | 2017-02-03 15:58 | Consultation ---
Consult Note Consult Note 51-year-old male history of schizophrenia, aphasia after CVA, right-sided hemiparesis, generalized muscle weakness, sent in for generalized muscle weakness Patient currently saying incomprehensible sounds, unable to obtain any further history from the patient Hx Cardiac Problems: Yes - Ischemic heart disease; Anemia Hx Gastrointestinal Problems: Yes - G-tube Hx Neurological Problems: Yes - POLYNEUROPATHY, APRAXIA Hx Cerebrovascular Accident: Yes Hx Seizures: Yes Hx Epilepsy: Yes Hx Aphasia: Yes examined- data reviewed Assessment/Plan Acute renal failure (likely due to dehydration ) (on admission BUN / Cr 84/4.4) UTI Dehydration e/lyte imbalance ( hyper Na-153, hyper K-6.1) elevated LFT dysphagia, G tube hx of CVA with R hemiparesis and aphasia seizure disorder anemia schizophrenia protein calorie malnutrition Plan; Hydrate- gastric support- Antibiotics monitor renal parameters avoid nephrotoxics MISSAEL MOON Feb 03, 2017 15:58
[2017-02-03] MEDS ORDERED: LORazepam Inj 2mg/ml 1ml IV PRN ×2 (16:45→19:15)
[2017-02-03] MEDS: Morphine Sulfate 2mg/ml Inj IVP PRN (19:03)
[2017-02-03] MEDS ORDERED: Miralax 17gm pkt ORAL PRN (19:45)
[2017-02-03] MEDS ORDERED: Albuterol/Ipratropium 3ml neb HHN PRN (19:45)
[2017-02-03] MEDS: Depakote 125mg Sprinkles ORAL SCH (20:37)
[2017-02-03] MEDS ORDERED: Cefepime HCl 1 GM in D5W 55 ML IVPB SCH (21:00)
[2017-02-04] VITALS: BP 105/69
[2017-02-04 04:00] VITALS: BP 107/73
[2017-02-04 07:37] LABS: BASOPHILS % (AUTO) 0.3 % (0.0-2.0); EOSINOPHILS % (AUTO) 0.4 % (0.0-3.0); LYMPHOCYTES % (AUTO) 11.9 % (20.0-45.0); MEAN CORPUSCULAR HGB CONC 31.2 G/DL (32.0-36.0); MEAN CORPUSCULAR VOLUME 99 FL (80-99); MEAN PLATELET VOLUME 7.9 FL (6.5-10.1); MONOCYTES % (AUTO) 5.9 % (1.0-10.0); NEUTROPHILS % (AUTO) 81.5 % (45.0-75.0); PLATELET COUNT 158 K/UL (150-450); RED BLOOD COUNT 3.47 M/UL (4.70-6.10); RED CELL DISTRIBUTION WIDTH 15.7 % (11.6-14.8); WHITE BLOOD COUNT 12.3 K/UL (4.8-10.8)
[2017-02-04 08:00] VITALS: BP 106/68
[2017-02-04 08:10] LABS: MAGNESIUM 2.4 MG/DL (1.8-2.4); PHOSPHORUS 5.4 MG/DL (2.5-4.9); URIC ACID 10.8 MG/DL (2.6-7.2)
[2017-02-04 08:13] LABS: CRP QUANT > 70.0 mg/dL (0.00-0.90)
--- NOTE | 2017-02-04 09:17 | Nephrology Progress Note ---
Assessment/Plan Problem List: (1) Hyperkalemia (2) Dehydration (3) Hypernatremia (4) Acute renal failure (ARF) Assessment Acute renal failure (likely due to dehydration ) (on admission BUN / Cr 84/4.4) UTI Dehydration e/lyte imbalance ( hyper Na-153, hyper K-6.1) elevated LFT dysphagia, G tube hx of CVA with R hemiparesis and aphasia seizure disorder anemia schizophrenia protein calorie malnutrition Plan Plan; Labs pending Hydrate- gastric support- Antibiotics monitor renal parameters avoid nephrotoxics Subjective ROS Limited/Unobtainable: No Constitutional: Reports: malaise Objective Objective Last 24 Hour Vital Signs Date Time Temp Pulse Resp B/P (MAP) Pulse Ox O2 Delivery O2 Flow Rate FiO2 02/04/17 08:00 97.8 87 18 106/68 100 Room Air 02/04/17 07:55 88 16 Room Air 21 02/04/17 04:15 Room Air 02/04/17 04:00 98.2 87 20 107/73 100 02/04/17 00:00 Room Air 02/04/17 00:00 96.4 80 18 105/69 96 Room Air 02/03/17 21:13 76 20 Room Air 21 02/03/17 20:00 Room Air 02/03/17 20:00 96.4 91 18 109/80 96 Room Air 02/03/17 19:33 97.9 02/03/17 16:00 97.9 94 20 113/82 96 Room Air 02/03/17 11:56 97.8 79 19 99/65 97 Room Air 02/03/17 11:27 78 Laboratory Tests 02/04/17 04:40: White Blood Count 12.3H, Red Blood Count 3.47L, Hemoglobin 10.7L, Hematocrit 34.4L, Mean Corpuscular Volume 99, Mean Corpuscular Hemoglobin 31.0, Mean Corpuscular Hemoglobin Concent 31.2L, Red Cell Distribution Width 15.7H, Platelet Count 158#, Mean Platelet Volume 7.9, Neutrophils (%) (Auto) 81.5H, Lymphocytes (%) (Auto) 11.9L, Monocytes (%) (Auto) 5.9, Eosinophils (%) (Auto) 0.4, Basophils (%) (Auto) 0.3, Sodium Level [Pending], Potassium Level [Pending] , Chloride Level [Pending], Carbon Dioxide Level [Pending], Blood Urea Nitrogen [Pending], Creatinine [Pending], Estimat Glomerular Filtration Rate [Pending], Glucose Level [Pending], Uric Acid 10.8H, Calcium Level [Pending], Phosphorus Level 5.4H, Magnesium Level 2.4, Iron Level [Pending], Unsaturated Iron Binding [Pending], Ferritin [Pending], Total Bilirubin [Pending], Gamma Glutamyl Transpeptidase 606H, Aspartate Amino Transf (AST/SGOT) [Pending], Alanine Aminotransferase (ALT/SGPT) [Pending], Alkaline Phosphatase [Pending], Total Creatine Kinase 32, C-Reactive Protein, Quantitative > 70.0H, Pro-B-Type Natriuretic Peptide 1762H, Total Protein [Pending], Albumin [Pending], Globulin [Pending], Triglycerides Level [Pending], Cholesterol Level [Pending], LDL Cholesterol [Pending], HDL Cholesterol [Pending], Cholesterol/HDL Ratio [Pending ], Vitamin B12 Level [Pending], RBC Folate Hemolysate [Pending], Red Blood Cell Folate [Pending], Thyroid Stimulating Hormone (TSH) [Pending] Height (Feet): 5 Height (Inches): 11.00 Weight (Pounds): 160 General Appearance: no apparent distress Objective PE not change MISSAEL MOON Feb 04, 2017 09:17
[2017-02-04] MEDS: levETIRAcetam 500mg/5ml Liquid NG SCH ×2 (09:18→22:08)
[2017-02-04] MEDS: Depakote 125mg Sprinkles ORAL SCH ×2 (09:18→22:06)
[2017-02-04] MEDS: PHENobarbital 32.4mg tab ORAL SCH ×2 (09:18→22:06)
[2017-02-04 09:51] LABS: ANION GAP 13 mmol/L (5-15); CALCIUM 9.1 MG/DL (8.5-10.1); CARBON DIOXIDE 22 MMOL/L (21-32); CHLORIDE 121 MMOL/L (98-107); CREATININE 3.4 MG/DL (0.55-1.30); GLOMERULAR FILTRATION RATE 19.3 mL/min (>60); IRON 71 ug/dL (50-175); POTASSIUM 5.9 MMOL/L (3.5-5.1); SODIUM 156 MMOL/L (136-145); TOTAL IRON BINDING CAPACITY 181 ug/dL (250-450)
[2017-02-04 09:52] LABS: ALANINE AMINOTRANSFERASE 117 U/L (12-78); ALBUMIN/GLOBULIN RATIO 0.4 (1.0-2.7); ASPARTATE AMINO TRANSFERASE 60 U/L (15-37); TOTAL PROTEIN 7.9 G/DL (6.4-8.2)
[2017-02-04 09:53] LABS: CHOLESTEROL 159 MG/DL (< 200); CHOLESTEROL/HDL RATIO 4.2 (3.3-4.4)
--- NOTE | 2017-02-04 10:07 | Diagnostic Imaging Report ---
Indication:Elevated Bun and Creatinine. Technique: Grayscale and duplex Doppler imaging of the kidneys performed. Comparison: None Findings: There is a 2.2 cm cystic focus with slightly ill-defined georges in the upper pole the right kidney. There is thickening of the urinary bladder wall. 1 CM cyst in the left kidney noted. There is no hydronephrosis. Left kidney measures 4.9 cm. Right kidney and lobe 0.7 cm in length. IVC is unremarkable. Impression: Cystic lesion in the right kidney with ill-defined borders. Suggest correlation with contrast CT. Simple cyst left kidney Thickened bladder wall. Cystitis suspected. Please correlate clinically.
[2017-02-04 10:09] LABS: FERRITIN 3067 NG/ML (8-388)
--- NOTE | 2017-02-04 10:19 | Pulmonology Progress Note ---
Assessment/Plan Assessment/Plan ASSESSMENT Acute renal failure (likely due to dehydration ) (on admission 84/4.4) UTI with E coli Dehydration e/lyte imbalance ( hyper Na-153, hyper K-6.1) elevated LFT dysphagia, hx of CVA with R hemiparesis and aphasia seizure disorder anemia schizophrenia protein calorie malnutrition PLAN OF CARE MS floor Abx ID follows urine cx + Ecoli, blood cx negative IVF Monitor renal parameters, lytes, avoid nephrotoxic Na and K still elevated Kayexalate today creat trending down nephro eval renal US noted, cystic lesion in the right kidney with ill-defined borders. S will get CT abdomen/pelvis s contrast to correlate Aspiration precautions, GT feeding, monitor tolerance Seizure precautions, continue Depakote, Keppra, Phenobarbital O2 HHN prn continue Risperdal Venous Duplex BLE dietary eval swallow eval monitor counts, transfuse prn, anemia w/up due to trend down in HH , check stool OB trend LFT , elevated on prior admission as well, hepatitis panel with evidence of immunity hep A and B, no hep C) case discussed and evaluated by supervising physician Subjective Allergies: Coded Allergies: NO KNOWN ALLERGIES (Unverified Allergy, Unknown, 02/08/15) Subjective leukocytosis today, afebrile LFT with trend up creat trending down still elevated Na and K no chest pain, no SOB Objective Last 24 Hour Vital Signs Date Time Temp Pulse Resp B/P (MAP) Pulse Ox O2 Delivery O2 Flow Rate FiO2 02/04/17 08:00 97.8 87 18 106/68 100 Room Air 02/04/17 07:55 88 16 Room Air 02/04/17 04:15 Room Air 02/04/17 04:00 98.2 87 20 107/73 100 02/04/17 00:00 Room Air 02/04/17 00:00 96.4 80 18 105/69 96 Room Air 02/03/17 21:13 76 20 Room Air 21 02/03/17 20:00 Room Air 02/03/17 20:00 96.4 91 18 109/80 96 Room Air 02/03/17 19:33 97.9 02/03/17 16:00 97.9 94 20 113/82 96 Room Air 02/03/17 11:56 97.8 79 19 99/65 97 Room Air 02/03/17 11:27 78 Objective General Appearance: no acute distress, other - awake, bedridden responsive aphasic HEENT: normocephalic, atraumatic, anicteric, mucous membranes moist Respiratory/Chest: lungs clear, no respiratory distress Cardiovascular: normal rate, regular rhythm - Abdomen: normal bowel sounds, soft, non tender, non distended Extremities: no edema, pedal pulses normal Neurologic/Psychiatric: abnormal gait, alert, responsive, other - R hemiparesis Musculoskeletal: atrophy - BLE Microbiology Date/Time Source Procedure Growth Status 02/02/17 16:40 Blood Blood Culture - Preliminary NO GROWTH AFTER 24 HOURS Resulted 02/02/17 16:30 Blood Blood Culture - Preliminary NO GROWTH AFTER 24 HOURS Resulted 02/02/17 17:05 Urine,Clean Catch Urine Culture - Final Escherichia Coli Complete Laboratory Tests 02/04/17 04:40: White Blood Count 12.3H, Red Blood Count 3.47L, Hemoglobin 10.7L, Hematocrit 34.4L, Mean Corpuscular Volume 99, Mean Corpuscular Hemoglobin 31.0, Mean Corpuscular Hemoglobin Concent 31.2L, Red Cell Distribution Width 15.7H, Platelet Count 158#, Mean Platelet Volume 7.9, Neutrophils (%) (Auto) 81.5H, Lymphocytes (%) (Auto) 11.9L, Monocytes (%) (Auto) 5.9, Eosinophils (%) (Auto) 0.4, Basophils (%) (Auto) 0.3, Sodium Level 156H, Potassium Level 5.9H, Chloride Level 121H, Carbon Dioxide Level 22, Anion Gap 13, Blood Urea Nitrogen 64H, Creatinine 3.4H, Estimat Glomerular Filtration Rate 19.3, Glucose Level 52L , Uric Acid 10.8H, Calcium Level 9.1, Phosphorus Level 5.4H, Magnesium Level 2.4 , Iron Level 71, Total Iron Binding Capacity 181L, Percent Iron Saturation 39, Unsaturated Iron Binding 110L, Ferritin 3067H, Total Bilirubin 0.4, Gamma Glutamyl Transpeptidase 606H, Aspartate Amino Transf (AST/SGOT) 60H, Alanine Aminotransferase (ALT/SGPT) 117H, Alkaline Phosphatase 351H, Total Creatine Kinase 32, C-Reactive Protein, Quantitative > 70.0H, Pro-B-Type Natriuretic Peptide 1762H, Total Protein 7.9, Albumin 2.3L, Globulin 5.6, Albumin/Globulin Ratio 0.4L, Triglycerides Level 125, Cholesterol Level 159, LDL Cholesterol 70, HDL Cholesterol 38L, Cholesterol/HDL Ratio 4.2, Vitamin B12 Level 0L, RBC Folate Hemolysate [Pending], Red Blood Cell Folate [Pending], Thyroid Stimulating Hormone (TSH) 1.600 Current Medications Medications (Trade) Dose Ordered Sig/Ludy Route PRN Reason Start Time Stop Time Status Last Admin Dose Admin Acetaminophen (Tylenol) 650 mg Q4H PRN ORAL fever 02/03/17 19:45 03/04/17 19:44 Albuterol/ Ipratropium (Albuterol/ Ipratropium) 3 ml Q4H PRN HHN Shortness of Breath 02/03/17 19:45 02/07/17 19:44 Cefepime HCl 1 gm/ Dextrose 55 ml @ 110 mls/hr Q24H IVPB 02/03/17 21:00 02/09/17 20:59 02/03/17 21:47 Dextrose 1,000 ml @ 75 mls/hr [id number] IV 02/03/17 19:45 03/04/17 19:44 02/04/17 05:10 Divalproex Sodium (Depakote Sprinkles) 500 mg EVERY 12 HOURS ORAL 02/03/17 21:00 03/05/17 08:59 02/04/17 09:18 Famotidine (Pepcid I.v.) 20 mg QHS IVP 02/03/17 21:00 03/05/17 20:59 02/03/17 21:46 Gabapentin (Neurontin) 100 mg THREE TIMES A DAY ORAL 02/04/17 09:00 03/05/17 08:59 02/04/17 09:18 Levetiracetam (Keppra) 1,500 mg Q12H NG 02/04/17 09:00 03/06/17 08:59 02/04/17 09:18 Lorazepam (Ativan 2mg/ml 1ml) 1 mg Q4H PRN IV For Anxiety 02/03/17 19:15 02/10/17 19:14 Morphine Sulfate (Morphine Sulfate) 2 mg Q4H PRN IVP Moderate Pain (Pain Scale 4-6) 02/03/17 19:45 02/09/17 19:44 02/03/17 19:03 Ondansetron HCl (Zofran) 4 mg Q6H PRN IVP Nausea & Vomiting 02/03/17 19:45 03/04/17 19:44 Phenazopyridine HCl (Pyridium) 100 mg DAILYPRN PRN ORAL dysuria 02/03/17 19:15 03/05/17 19:14 Phenobarbital (PHENobarbital) 64.8 mg Q12HR ORAL 02/03/17 21:00 03/04/17 20:59 02/04/17 09:18 Polyethylene Glycol (Miralax) 17 gm DAILYPRN PRN ORAL Constipation 02/03/17 19:45 03/04/17 19:44 Risperidone (RisperDAL) 1 mg BEDTIME ORAL 02/03/17 21:00 03/04/17 20:59 02/03/17 20:39 Temazepam (Restoril) 15 mg HSPRN PRN ORAL Insomnia 02/03/17 19:45 02/09/17 19:44 Santi AlvaradoAme bertrand NP Feb 04, 2017 10:19
[2017-02-04] MEDS: Sodium Polystyrene Sulfonate 15gm Powder ORAL ONE ×2 (10:30→11:06)
--- NOTE | 2017-02-04 10:41 | Infectious Diseases Prog Note ---
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, s/p GT, anemia, s/p leg fracture 2014, non verbal (expressive aphasia), chronic contractures Plan: - descleate Cefepime # 3 to Ancef d# , upon DC will change to Keflex to complete the course 02/03 SP IV Vancomcyin #2 -01/07 SP 10 d PO keflex/Doxy -12/29 SP IV Ancef/Doxy #4 -s/p 2d IV Vanco/Cefepime 12/26 -f/u cx -Monitor CBC/BMP ,temperatures Subjective Constitutional: Denies: no symptoms, fever, chills, fatigue, anorexia, drenching sweats, other Allergies: Coded Allergies: NO KNOWN ALLERGIES (Unverified Allergy, Unknown, 02/08/15) Objective Vital Signs Last 24 Hour Vital Signs Date Time Temp Pulse Resp B/P (MAP) Pulse Ox O2 Delivery O2 Flow Rate FiO2 02/04/17 08:00 97.8 87 18 106/68 100 Room Air 02/04/17 07:55 88 16 Room Air 21 02/04/17 04:15 Room Air 02/04/17 04:00 98.2 87 20 107/73 100 02/04/17 00:00 Room Air 02/04/17 00:00 96.4 80 18 105/69 96 Room Air 02/03/17 21:13 76 20 Room Air 21 02/03/17 20:00 Room Air 02/03/17 20:00 96.4 91 18 109/80 96 Room Air 02/03/17 19:33 97.9 02/03/17 16:00 97.9 94 20 113/82 96 Room Air 02/03/17 11:56 97.8 79 19 99/65 97 Room Air 02/03/17 11:27 78 Height (Feet): 5 Height (Inches): 11.00 Weight (Pounds): 160 HEENT: anicteric Respiratory/Chest: normal breath sounds Cardiovascular: regular rhythm Abdomen: no mass Microbiology Date/Time Source Procedure Growth Status 02/02/17 16:40 Blood Blood Culture - Preliminary NO GROWTH AFTER 24 HOURS Resulted 02/02/17 16:30 Blood Blood Culture - Preliminary NO GROWTH AFTER 24 HOURS Resulted 02/02/17 17:05 Urine,Clean Catch Urine Culture - Final Escherichia Coli Complete Laboratory Tests Test 02/04/17 04:40 White Blood Count 12.3 K/UL (4.8-10.8) H Red Blood Count 3.47 M/UL (4.70-6.10) L Hemoglobin 10.7 G/DL (14.2-18.0) L Hematocrit 34.4 % (42.0-52.0) L Mean Corpuscular Volume 99 FL (80-99) Mean Corpuscular Hemoglobin 31.0 PG (27.0-31.0) Mean Corpuscular Hemoglobin Concent 31.2 G/DL (32.0-36.0) L Red Cell Distribution Width 15.7 % (11.6-14.8) H Platelet Count 158 K/UL (150-450) # Mean Platelet Volume 7.9 FL (6.5-10.1) Neutrophils (%) (Auto) 81.5 % (45.0-75.0) H Lymphocytes (%) (Auto) 11.9 % (20.0-45.0) L Monocytes (%) (Auto) 5.9 % (1.0-10.0) Eosinophils (%) (Auto) 0.4 % (0.0-3.0) Basophils (%) (Auto) 0.3 % (0.0-2.0) Sodium Level 156 MMOL/L (136-145) H Potassium Level 5.9 MMOL/L (3.5-5.1) H Chloride Level 121 MMOL/L (98-107) H Carbon Dioxide Level 22 MMOL/L (21-32) Anion Gap 13 mmol/L (5-15) Blood Urea Nitrogen 64 mg/dL (7-18) H Creatinine 3.4 MG/DL (0.55-1.30) H Estimat Glomerular Filtration Rate 19.3 mL/min (>60) Glucose Level 52 MG/DL (74-106) L Uric Acid 10.8 MG/DL (2.6-7.2) H Calcium Level 9.1 MG/DL (8.5-10.1) Phosphorus Level 5.4 MG/DL (2.5-4.9) H Magnesium Level 2.4 MG/DL (1.8-2.4) Iron Level 71 ug/dL (50-175) Total Iron Binding Capacity 181 ug/dL (250-450) L Percent Iron Saturation 39 % (15-50) Unsaturated Iron Binding 110 ug/dL (112-346) L Ferritin 3067 NG/ML (8-388) H Total Bilirubin 0.4 MG/DL (0.2-1.0) Gamma Glutamyl Transpeptidase 606 U/L (5-85) H Aspartate Amino Transf (AST/SGOT) 60 U/L (15-37) H Alanine Aminotransferase (ALT/SGPT) 117 U/L (12-78) H Alkaline Phosphatase 351 U/L (46-116) H Total Creatine Kinase 32 U/L (26-308) C-Reactive Protein, Quantitative > 70.0 mg/dL (0.00-0.90) H Pro-B-Type Natriuretic Peptide 1762 pg/mL (0-125) H Total Protein 7.9 G/DL (6.4-8.2) Albumin 2.3 G/DL (3.4-5.0) L Globulin 5.6 g/dL Albumin/Globulin Ratio 0.4 (1.0-2.7) L Triglycerides Level 125 MG/DL (41-150) Cholesterol Level 159 MG/DL (< 200) LDL Cholesterol 70 mg/dL (<100) HDL Cholesterol 38 mg/dL (40-89) L Cholesterol/HDL Ratio 4.2 (3.3-4.4) Vitamin B12 Level 0 PG/ML (193-986) L RBC Folate Hemolysate Pending Red Blood Cell Folate Pending Thyroid Stimulating Hormone (TSH) 1.600 uiU/mL (0.358-3.740) Current Medications Medications (Trade) Dose Ordered Sig/Ludy Route PRN Reason Start Time Stop Time Status Last Admin Dose Admin Acetaminophen (Tylenol) 650 mg Q4H PRN ORAL fever 02/03/17 19:45 03/04/17 19:44 Albuterol/ Ipratropium (Albuterol/ Ipratropium) 3 ml Q4H PRN HHN Shortness of Breath 02/03/17 19:45 02/07/17 19:44 Cefepime HCl 1 gm/ Dextrose 55 ml @ 110 mls/hr Q24H IVPB 02/03/17 21:00 02/09/17 20:59 02/03/17 21:47 Dextrose 1,000 ml @ 75 mls/hr [id number] IV 02/03/17 19:45 03/04/17 19:44 02/04/17 05:10 Divalproex Sodium (Depakote Sprinkles) 500 mg EVERY 12 HOURS ORAL 02/03/17 21:00 03/05/17 08:59 02/04/17 09:18 Famotidine (Pepcid I.v.) 20 mg QHS IVP 02/03/17 21:00 03/05/17 20:59 02/03/17 21:46 Gabapentin (Neurontin) 100 mg THREE TIMES A DAY ORAL 02/04/17 09:00 03/05/17 08:59 02/04/17 09:18 Levetiracetam (Keppra) 1,500 mg Q12H NG 02/04/17 09:00 03/06/17 08:59 02/04/17 09:18 Lorazepam (Ativan 2mg/ml 1ml) 1 mg Q4H PRN IV For Anxiety 02/03/17 19:15 02/10/17 19:14 Morphine Sulfate (Morphine Sulfate) 2 mg Q4H PRN IVP Moderate Pain (Pain Scale 4-6) 02/03/17 19:45 02/09/17 19:44 02/03/17 19:03 Ondansetron HCl (Zofran) 4 mg Q6H PRN IVP Nausea & Vomiting 02/03/17 19:45 03/04/17 19:44 Phenazopyridine HCl (Pyridium) 100 mg DAILYPRN PRN ORAL dysuria 02/03/17 19:15 12/31/17 19:14 Phenobarbital (PHENobarbital) 64.8 mg Q12HR ORAL 02/03/17 21:00 03/04/17 20:59 02/04/17 09:18 Polyethylene Glycol (Miralax) 17 gm DAILYPRN PRN ORAL Constipation 02/03/17 19:45 03/04/17 19:44 Risperidone (RisperDAL) 1 mg BEDTIME ORAL 02/03/17 21:00 03/04/17 20:59 02/03/17 20:39 Temazepam (Restoril) 15 mg HSPRN PRN ORAL Insomnia 02/03/17 19:45 02/09/17 19:44 SHELLY LORENZANA M.D. Feb 04, 2017 10:41
[2017-02-04] MEDS ORDERED: Sodium Polystyrene Sulfonate Enema RECTAL ONE (11:30)
[2017-02-04 12:00] VITALS: BP 106/78
[2017-02-04] MEDS: ceFAZolin sod 1 GM in D5W 55 ML IVPB SCH ×2 (14:13→22:05)
[2017-02-04 16:00] VITALS: BP 108/67
--- NOTE | 2017-02-04 18:28 | Cardiology Report ---
APPROVED REPORT EKG Measurement Heart [id number] Normal sinus rhythm Left axis deviation Abnormal ECG
[2017-02-04 20:00] VITALS: BP 119/80
[2017-02-04] MEDS ORDERED: Tubing IV Secondary IV ONE (20:19)
[2017-02-05] VITALS: BP 92/60
[2017-02-05 04:10] VITALS: BP 126/83
[2017-02-05] MEDS: ceFAZolin sod 1 GM in D5W 55 ML IVPB SCH ×3 (05:43→21:34)
[2017-02-05 07:48] VITALS: BP 116/81
[2017-02-05 07:49] LABS: BASOPHILS % (AUTO) 0.2 % (0.0-2.0); EOSINOPHILS % (AUTO) 0.3 % (0.0-3.0); MEAN CORPUSCULAR HEMOGLOBIN 31.2 PG (27.0-31.0); MEAN CORPUSCULAR HGB CONC 31.8 G/DL (32.0-36.0); MEAN CORPUSCULAR VOLUME 98 FL (80-99); MEAN PLATELET VOLUME 6.4 FL (6.5-10.1); MONOCYTES % (AUTO) 6.5 % (1.0-10.0); PLATELET COUNT 158 K/UL (150-450); RED BLOOD COUNT 3.18 M/UL (4.70-6.10); RED CELL DISTRIBUTION WIDTH 15.2 % (11.6-14.8); WHITE BLOOD COUNT 10.9 K/UL (4.8-10.8)
[2017-02-05 08:12] LABS: ALANINE AMINOTRANSFERASE 63 U/L (12-78); ALBUMIN/GLOBULIN RATIO 0.3 (1.0-2.7); ANION GAP 12 mmol/L (5-15); ASPARTATE AMINO TRANSFERASE 32 U/L (15-37); CALCIUM 9.5 MG/DL (8.5-10.1); CARBON DIOXIDE 23 MMOL/L (21-32); CHLORIDE 119 MMOL/L (98-107); CREATININE 3.1 MG/DL (0.55-1.30); GLOMERULAR FILTRATION RATE 21.5 mL/min (>60); POTASSIUM 4.6 MMOL/L (3.5-5.1); SODIUM 154 MMOL/L (136-145); TOTAL PROTEIN 8.3 G/DL (6.4-8.2)
[2017-02-05] MEDS: levETIRAcetam 500mg/5ml Liquid NG SCH ×3 (09:00→21:53)
[2017-02-05] MEDS: PHENobarbital 32.4mg tab ORAL SCH ×3 (09:00→21:51)
[2017-02-05] MEDS: Depakote 125mg Sprinkles ORAL SCH ×3 (09:00→21:52)
--- NOTE | 2017-02-05 11:57 | Nephrology Progress Note ---
Assessment/Plan Problem List: (1) Hyperkalemia (2) Dehydration (3) Hypernatremia (4) Acute renal failure (ARF) Assessment Acute renal failure (likely due to dehydration ) (on admission BUN / Cr 84/4.4) Cr today 3.1 UTI Dehydration e/lyte imbalance ( hyper Na-153, hyper K-6.1) elevated LFT dysphagia, G tube hx of CVA with R hemiparesis and aphasia seizure disorder anemia schizophrenia protein calorie malnutrition Plan Plan; check depakote and Phenbarb levels Hydrate- increase D5w gastric support- Antibiotics monitor renal parameters avoid nephrotoxics Subjective ROS Limited/Unobtainable: No Constitutional: Reports: malaise Objective Objective Last 24 Hour Vital Signs Date Time Temp Pulse Resp B/P (MAP) Pulse Ox O2 Delivery O2 Flow Rate FiO2 02/05/17 08:08 91 18 Room Air 21 02/05/17 07:48 97.4 92 20 116/81 98 Room Air 02/05/17 04:10 97.3 92 20 126/83 96 Room Air 02/05/17 00:00 97.1 83 20 92/60 98 Room Air 02/04/17 20:41 92 18 Room Air 21 02/04/17 20:00 97.0 99 20 119/80 98 Room Air 02/04/17 16:00 97.6 86 20 108/67 98 02/04/17 12:00 98.1 88 20 106/78 98 Laboratory Tests 02/04/17 19:00: Stool Occult Blood Negative 02/05/17 05:50: White Blood Count 10.9H, Red Blood Count 3.18L, Hemoglobin 9.9L, Hematocrit 31.3L, Mean Corpuscular Volume 98, Mean Corpuscular Hemoglobin 31.2H, Mean Corpuscular Hemoglobin Concent 31.8L, Red Cell Distribution Width 15.2H, Platelet Count 158, Mean Platelet Volume 6.4L, Neutrophils (%) (Auto) 80.0H, Lymphocytes (%) (Auto) 13.0L, Monocytes (%) (Auto) 6.5, Eosinophils (%) (Auto) 0.3, Basophils (%) (Auto) 0.2, Sodium Level 154H, Potassium Level 4.6, Chloride Level 119H, Carbon Dioxide Level 23, Anion Gap 12, Blood Urea Nitrogen 53H, Creatinine 3.1H, Estimat Glomerular Filtration Rate 21.5, Glucose Level 74, Calcium Level 9.5, Total Bilirubin 0.5, Aspartate Amino Transf (AST/SGOT) 32, Alanine Aminotransferase (ALT/SGPT) 63, Alkaline Phosphatase 350H, Total Protein 8.3H, Albumin 1.9L, Globulin 6.4, Albumin/Globulin Ratio 0.3L Height (Feet): 5 Height (Inches): 11.00 Weight (Pounds): 160 General Appearance: no apparent distress Objective PE not change MISSAEL MOON Feb 05, 2017 11:57
[2017-02-05 12:00] VITALS: BP 120/78
--- NOTE | 2017-02-05 12:27 | Pulmonology Progress Note ---
Assessment/Plan Assessment/Plan ASSESSMENT Acute renal failure (likely due to dehydration ) (on admission 84/4.4) UTI Dehydration e/lyte imbalance ( hyper Na-153, hyper K-6.1) elevated LFT dysphagia, G tube hx of CVA with R hemiparesis and aphasia seizure disorder anemia schizophrenia protein calorie malnutrition PLAN OF CARE Abx ID follows urine cx + E coli, blood cx negative IVF Monitor renal parameters, lytes, avoid nephrotoxic Na still elevated, but trendgin down K down to normal creat trending down -3,1 renal US with Cystic lesion in the right kidney with ill-defined borders CT A/P was ordered for correlation, but can t do contrast and per radiology no good images can be done w/out contrast await for creat to trend down and do as outpatient Nephro follows Aspiration precautions, swallow eval in am Seizure precautions, continue Depakote, Keppra, Phenobarbital O2 HHN prn continue Risperdal Venous Duplex BLE negative dietary eval monitor counts, transfuse prn, anemia w/up c/w anemia of chronic disease, stable iron , HH at baseline check stool OB trend LFT , down to normal , hepatitis panel with evidence of immunity hep A and B, no hep C) case discussed and evaluated by supervising physician Subjective Allergies: Coded Allergies: NO KNOWN ALLERGIES (Unverified Allergy, Unknown, 02/08/15) Subjective leukocytosis resolved, afebrile LFTdown to normal creat trending down still elevated Na but trending down no chest pain, no SOB Objective Last 24 Hour Vital Signs Date Time Temp Pulse Resp B/P (MAP) Pulse Ox O2 Delivery O2 Flow Rate FiO2 02/05/17 08:08 91 18 Room Air 21 02/05/17 07:48 97.4 92 20 116/81 98 Room Air 02/05/17 04:10 97.3 92 20 126/83 96 Room Air 02/05/17 00:00 97.1 83 20 92/60 98 Room Air 02/04/17 20:41 92 18 Room Air 21 02/04/17 20:00 97.0 99 20 119/80 98 Room Air 02/04/17 16:00 97.6 86 20 108/67 98 Objective General Appearance: no acute distress, other - awake, bedridden responsive aphasic HEENT: normocephalic, atraumatic, anicteric, mucous membranes moist Respiratory/Chest: lungs clear, no respiratory distress Cardiovascular: normal rate, regular rhythm - Abdomen: normal bowel sounds, soft, non tender, non distended Extremities: no edema, pedal pulses normal Neurologic/Psychiatric: abnormal gait, alert, responsive, other - R hemiparesis Musculoskeletal: atrophy - BLE Microbiology Date/Time Source Procedure Growth Status 02/02/17 16:40 Blood Blood Culture - Preliminary NO GROWTH AFTER 48 HOURS Resulted 02/02/17 16:30 Blood Blood Culture - Preliminary NO GROWTH AFTER 48 HOURS Resulted 02/02/17 17:05 Urine,Clean Catch Urine Culture - Final Escherichia Coli Complete 02/02/17 22:02 Rectum VRE Culture - Final Enterococcus Faecalis - Vre Complete Laboratory Tests 02/04/17 19:00: Stool Occult Blood Negative 02/05/17 05:50: White Blood Count 10.9H, Red Blood Count 3.18L, Hemoglobin 9.9L, Hematocrit 31.3L, Mean Corpuscular Volume 98, Mean Corpuscular Hemoglobin 31.2H, Mean Corpuscular Hemoglobin Concent 31.8L, Red Cell Distribution Width 15.2H, Platelet Count 158, Mean Platelet Volume 6.4L, Neutrophils (%) (Auto) 80.0H, Lymphocytes (%) (Auto) 13.0L, Monocytes (%) (Auto) 6.5, Eosinophils (%) (Auto) 0.3, Basophils (%) (Auto) 0.2, Sodium Level 154H, Potassium Level 4.6, Chloride Level 119H, Carbon Dioxide Level 23, Anion Gap 12, Blood Urea Nitrogen 53H, Creatinine 3.1H, Estimat Glomerular Filtration Rate 21.5, Glucose Level 74, Calcium Level 9.5, Total Bilirubin 0.5, Aspartate Amino Transf (AST/SGOT) 32, Alanine Aminotransferase (ALT/SGPT) 63, Alkaline Phosphatase 350H, Total Protein 8.3H, Albumin 1.9L, Globulin 6.4, Albumin/Globulin Ratio 0.3L Current Medications Medications (Trade) Dose Ordered Sig/Ludy Route PRN Reason Start Time Stop Time Status Last Admin Dose Admin Acetaminophen (Tylenol) 650 mg Q4H PRN ORAL fever 02/03/17 19:45 03/04/17 19:44 Albuterol/ Ipratropium (Albuterol/ Ipratropium) 3 ml Q4H PRN HHN Shortness of Breath 02/03/17 19:45 02/07/17 19:44 Cefazolin Sodium 1 gm/Dextrose 55 ml @ 110 mls/hr Q8HR IVPB 02/04/17 14:00 02/11/17 13:59 02/05/17 05:43 Dextrose 1,000 ml @ 100 mls/hr Q10H IV 02/05/17 12:30 03/07/17 12:29 Divalproex Sodium (Depakote Sprinkles) 500 mg EVERY 12 HOURS ORAL 02/03/17 21:00 03/05/17 08:59 02/04/17 22:06 Famotidine (Pepcid I.v.) 20 mg QHS IVP 02/03/17 21:00 03/05/17 20:59 02/04/17 22:05 Gabapentin (Neurontin) 100 mg THREE TIMES A DAY ORAL 02/04/17 09:00 03/05/17 08:59 02/04/17 14:13 Levetiracetam (Keppra) 1,500 mg Q12H NG 02/04/17 09:00 03/06/17 08:59 02/04/17 22:08 Lorazepam (Ativan 2mg/ml 1ml) 1 mg Q4H PRN IV For Anxiety 02/03/17 19:15 02/10/17 19:14 02/05/17 11:57 Morphine Sulfate (Morphine Sulfate) 2 mg Q4H PRN IVP Moderate Pain (Pain Scale 4-6) 02/03/17 19:45 02/09/17 19:44 02/03/17 19:03 Ondansetron HCl (Zofran) 4 mg Q6H PRN IVP Nausea & Vomiting 02/03/17 19:45 03/04/17 19:44 Phenazopyridine HCl (Pyridium) 100 mg DAILYPRN PRN ORAL dysuria 02/03/17 19:15 03/05/17 19:14 Phenobarbital (PHENobarbital) 64.8 mg Q12HR ORAL 02/03/17 21:00 03/04/17 20:59 02/04/17 22:06 Polyethylene Glycol (Miralax) 17 gm DAILYPRN PRN ORAL Constipation 02/03/17 19:45 03/04/17 19:44 Risperidone (RisperDAL) 1 mg BEDTIME ORAL 02/03/17 21:00 03/04/17 20:59 02/04/17 22:06 Temazepam (Restoril) 15 mg HSPRN PRN ORAL Insomnia 02/03/17 19:45 02/09/17 19:44 02/04/17 22:06 Santi LomeliHarlem Hospital CenterAme Lake NP Feb 05, 2017 12:27
[2017-02-05] MEDS ORDERED: Albuterol/Ipratropium 3ml neb HHN PRN (13:00)
[2017-02-05 16:46] VITALS: BP 106/68
[2017-02-05 19:56] VITALS: BP 139/81
[2017-02-06 00:01] VITALS: BP 107/67
[2017-02-06 04:00] VITALS: BP 108/72
[2017-02-06] MEDS: ceFAZolin sod 1 GM in D5W 55 ML IVPB SCH ×3 (05:13→21:38)
[2017-02-06 07:11] LABS: BASOPHILS % (AUTO) 0.8 % (0.0-2.0); EOSINOPHILS % (AUTO) 2.1 % (0.0-3.0); LYMPHOCYTES % (AUTO) 22.5 % (20.0-45.0); MEAN CORPUSCULAR HEMOGLOBIN 29.9 PG (27.0-31.0); MEAN CORPUSCULAR HGB CONC 34.1 G/DL (32.0-36.0); MEAN CORPUSCULAR VOLUME 88 FL (80-99); MEAN PLATELET VOLUME 6.1 FL (6.5-10.1); MONOCYTES % (AUTO) 9.7 % (1.0-10.0); PLATELET COUNT 164 K/UL (150-450); RED BLOOD COUNT 3.95 M/UL (4.70-6.10); RED CELL DISTRIBUTION WIDTH 11.7 % (11.6-14.8); WHITE BLOOD COUNT 5.5 K/UL (4.8-10.8)
[2017-02-06 07:27] LABS: ALANINE AMINOTRANSFERASE 28 U/L (12-78); ALBUMIN/GLOBULIN RATIO 0.6 (1.0-2.7); ANION GAP 5 mmol/L (5-15); ASPARTATE AMINO TRANSFERASE 19 U/L (15-37); CALCIUM 8.3 MG/DL (8.5-10.1); CARBON DIOXIDE 26 MMOL/L (21-32); CHLORIDE 108 MMOL/L (98-107); CREATININE 0.8 MG/DL (0.55-1.30); CRP QUANT 4.7 mg/dL (0.00-0.90); GLOMERULAR FILTRATION RATE > 60 mL/min (>60); MAGNESIUM 1.8 MG/DL (1.8-2.4); PHOSPHORUS 2.5 MG/DL (2.5-4.9); POTASSIUM 3.3 MMOL/L (3.5-5.1); SODIUM 139 MMOL/L (136-145); TOTAL PROTEIN 6.4 G/DL (6.4-8.2); URIC ACID 2.9 MG/DL (2.6-7.2); VALPROIC ACID 3 MCG/ML (50-100)
[2017-02-06 08:00] VITALS: BP 110/69
[2017-02-06] MEDS: levETIRAcetam 500mg/5ml Liquid NG SCH ×2 (09:06→20:24)
[2017-02-06] MEDS: PHENobarbital 32.4mg tab ORAL SCH ×2 (09:06→20:25)
[2017-02-06] MEDS: Depakote 125mg Sprinkles ORAL SCH ×2 (09:07→20:24)
--- NOTE | 2017-02-06 10:54 | Nephrology Progress Note ---
Assessment/Plan Problem List: (1) Hyperkalemia (2) Dehydration (3) Hypernatremia (4) Acute renal failure (ARF) Assessment Acute renal failure (likely due to dehydration ) (on admission BUN / Cr 84/4.4) Cr today 3.1 UTI Dehydration e/lyte imbalance ( hyper Na-153, hyper K-6.1) elevated LFT dysphagia, G tube hx of CVA with R hemiparesis and aphasia seizure disorder anemia schizophrenia protein calorie malnutrition Plan Plan; today's labs error need to be repeated check depakote and Phenbarb levels Hydrate- increase D5w gastric support- Antibiotics monitor renal parameters avoid nephrotoxics Subjective ROS Limited/Unobtainable: No Constitutional: Reports: malaise Objective Objective Last 24 Hour Vital Signs Date Time Temp Pulse Resp B/P (MAP) Pulse Ox O2 Delivery O2 Flow Rate FiO2 02/06/17 08:00 97.9 79 18 110/69 98 Room Air 02/06/17 07:32 76 16 Room Air 21 02/06/17 04:00 97.6 76 18 108/72 96 02/06/17 00:01 97.9 87 18 107/67 97 Room Air 02/05/17 21:43 70 16 Room Air 21 02/05/17 19:56 98.1 77 16 139/81 95 Room Air 02/05/17 16:46 97.9 75 16 106/68 97 Room Air 02/05/17 12:00 97.0 88 20 120/78 96 Room Air Laboratory Tests 02/06/17 04:30: White Blood Count 5.5, Red Blood Count 3.95L, Hemoglobin 11.8L, Hematocrit 34.6L , Mean Corpuscular Volume 88#, Mean Corpuscular Hemoglobin 29.9, Mean Corpuscular Hemoglobin Concent 34.1, Red Cell Distribution Width 11.7, Platelet Count 164, Mean Platelet Volume 6.1L, Neutrophils (%) (Auto) 65.0, Lymphocytes ( %) (Auto) 22.5, Monocytes (%) (Auto) 9.7, Eosinophils (%) (Auto) 2.1, Basophils (%) (Auto) 0.8, Sodium Level 139#, Potassium Level 3.3L, Chloride Level 108H, Carbon Dioxide Level 26, Anion Gap 5, Blood Urea Nitrogen 5L, Creatinine 0.8#, Estimat Glomerular Filtration Rate > 60, Glucose Level 96, Uric Acid 2.9, Calcium Level 8.3L, Phosphorus Level 2.5, Magnesium Level 1.8, Total Bilirubin 0.3, Aspartate Amino Transf (AST/SGOT) 19, Alanine Aminotransferase (ALT/SGPT) 28, Alkaline Phosphatase 131H, C-Reactive Protein, Quantitative 4.7H, Pro-B- Type Natriuretic Peptide 417H, Total Protein 6.4, Albumin 2.5L, Globulin 3.9, Albumin/Globulin Ratio 0.6L, Valproic Acid (Depakene) Level 3L, Phenobarbital Level < 1.0L Height (Feet): 5 Height (Inches): 11.00 Weight (Pounds): 160 General Appearance: no apparent distress Objective PE not change MISSAEL MOON Feb 06, 2017 10:54
[2017-02-06 11:22] LABS: ANION GAP 10 mmol/L (5-15); CALCIUM 9.6 MG/DL (8.5-10.1); CARBON DIOXIDE 25 MMOL/L (21-32); CHLORIDE 114 MMOL/L (98-107); CREATININE 3.2 MG/DL (0.55-1.30); GLOMERULAR FILTRATION RATE 20.7 mL/min (>60); POTASSIUM 4.5 MMOL/L (3.5-5.1); SODIUM 149 MMOL/L (136-145)
[2017-02-06 11:33] LABS: ALANINE AMINOTRANSFERASE 41 U/L (12-78); ALBUMIN/GLOBULIN RATIO 0.3 (1.0-2.7); ASPARTATE AMINO TRANSFERASE 55 U/L (15-37); PHOSPHORUS 4.1 MG/DL (2.5-4.9); TOTAL PROTEIN 8.6 G/DL (6.4-8.2); URIC ACID 9.4 MG/DL (2.6-7.2)
[2017-02-06 11:54] LABS: CRP QUANT > 70.0 mg/dL (0.00-0.90)
[2017-02-06 12:00] VITALS: BP 116/72
--- NOTE | 2017-02-06 12:20 | Infectious Diseases Prog Note ---
Assessment/Plan Assessment/Plan Mild leukocytosis, resolved -CXR: Bilateral basilar atelectasis versus scarring, favor the latter as findings are similar to the previous study of over one month ago No acute process otherwise -Bcx NTD UTI E coli -u/a WBC 5-10, nit +, leuk +3; UCx E.coli ( S ancef) E;levated LFts (improved from prior admission) - -acute hep panel neg 12/2016 Recent R leg cellulitis s/p Rx -xray R foot/tibia/fibula-: no acute process -venous duplex BLE: no DVT -BCx Neg -HIV ag/ab neg, RPR neg VRE colonization hx MRSA colonization ADOLFO/ Dehydration -REnal US: Cystic lesion in the right kidney with ill-defined borders. Suggest correlation with contrast CT. Simple cyst left kidney.Thickened bladder wall. Cystitis suspected. Please correlate clinically. 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9 79 18 110/69 98 Room Air 02/06/17 07:32 76 16 Room Air 21 02/06/17 04:00 97.6 76 18 108/72 96 02/06/17 00:01 97.9 87 18 107/67 97 Room Air 02/05/17 21:43 70 16 Room Air 21 02/05/17 19:56 98.1 77 16 139/81 95 Room Air 02/05/17 16:46 97.9 75 16 106/68 97 Room Air Height (Feet): 5 Height (Inches): 11.00 Weight (Pounds): 160 Laboratory Tests Test 02/06/17 04:30 02/06/17 10:00 White Blood Count 5.5 K/UL (4.8-10.8) Red Blood Count 3.95 M/UL (4.70-6.10) L Hemoglobin 11.8 G/DL (14.2-18.0) L Hematocrit 34.6 % (42.0-52.0) L Mean Corpuscular Volume 88 FL (80-99) # Mean Corpuscular Hemoglobin 29.9 PG (27.0-31.0) Mean Corpuscular Hemoglobin Concent 34.1 G/DL (32.0-36.0) Red Cell Distribution Width 11.7 % (11.6-14.8) Platelet Count 164 K/UL (150-450) Mean Platelet Volume 6.1 FL (6.5-10.1) L Neutrophils (%) (Auto) 65.0 % (45.0-75.0) Lymphocytes (%) (Auto) 22.5 % (20.0-45.0) Monocytes (%) (Auto) 9.7 % (1.0-10.0) Eosinophils (%) (Auto) 2.1 % (0.0-3.0) Basophils (%) (Auto) 0.8 % (0.0-2.0) Sodium Level 139 MMOL/L (136-145) # 149 MMOL/L (136-145) #H Potassium Level 3.3 MMOL/L (3.5-5.1) L 4.5 MMOL/L (3.5-5.1) Chloride Level 108 MMOL/L (98-107) H 114 MMOL/L (98-107) H Carbon Dioxide Level 26 MMOL/L (21-32) 25 MMOL/L (21-32) Anion Gap 5 mmol/L (5-15) 10 mmol/L (5-15) Blood Urea Nitrogen 5 mg/dL (7-18) L 47 mg/dL (7-18) H Creatinine 0.8 MG/DL (0.55-1.30) # 3.2 MG/DL (0.55-1.30) #H Estimat Glomerular Filtration Rate > 60 mL/min (>60) 20.7 mL/min (>60) Glucose Level 96 MG/DL (74-106) 126 MG/DL (74-106) H Uric Acid 2.9 MG/DL (2.6-7.2) 9.4 MG/DL (2.6-7.2) H Calcium Level 8.3 MG/DL (8.5-10.1) L 9.6 MG/DL (8.5-10.1) Phosphorus Level 2.5 MG/DL (2.5-4.9) 4.1 MG/DL (2.5-4.9) Magnesium Level 1.8 MG/DL (1.8-2.4) 2.0 MG/DL (1.8-2.4) Total Bilirubin 0.3 MG/DL (0.2-1.0) 1.0 MG/DL (0.2-1.0) Aspartate Amino Transf (AST/SGOT) 19 U/L (15-37) 55 U/L (15-37) H Alanine Aminotransferase (ALT/SGPT) 28 U/L (12-78) 41 U/L (12-78) Alkaline Phosphatase 131 U/L (46-116) H 404 U/L (46-116) H C-Reactive Protein, Quantitative 4.7 mg/dL (0.00-0.90) H > 70.0 mg/dL (0.00-0.90) H Pro-B-Type Natriuretic Peptide 417 pg/mL (0-125) H 525 pg/mL (0-125) H Total Protein 6.4 G/DL (6.4-8.2) 8.6 G/DL (6.4-8.2) #H Albumin 2.5 G/DL (3.4-5.0) L 1.9 G/DL (3.4-5.0) L Globulin 3.9 g/dL 6.7 g/dL Albumin/Globulin Ratio 0.6 (1.0-2.7) L 0.3 (1.0-2.7) L Valproic Acid (Depakene) Level 3 MCG/ML (50-100) L 15 MCG/ML (50-100) L Phenobarbital Level < 1.0 ug/mL (15-40) L 24.1 ug/mL (15-40) Current Medications Medications (Trade) Dose Ordered Sig/Ludy Route PRN Reason Start Time Stop Time Status Last Admin Dose Admin Acetaminophen (Tylenol) 650 mg Q4H PRN ORAL fever 02/03/17 19:45 03/04/17 19:44 Albuterol/ Ipratropium (Albuterol/ Ipratropium) 3 ml Q4H PRN HHN Shortness of Breath 02/05/17 13:00 02/10/17 12:59 Cefazolin Sodium 1 gm/Dextrose 55 ml @ 110 mls/hr Q8HR IVPB 02/04/17 14:00 02/11/17 13:59 02/06/17 05:13 Dextrose 1,000 ml @ 100 mls/hr Q10H IV 02/05/17 12:30 03/07/17 12:29 02/06/17 08:30 Divalproex Sodium (Depakote Sprinkles) 500 mg EVERY 12 HOURS ORAL 02/03/17 21:00 03/05/17 08:59 02/06/17 09:07 Famotidine (Pepcid I.v.) 20 mg QHS IVP 02/03/17 21:00 03/05/17 20:59 02/05/17 21:34 Gabapentin (Neurontin) 100 mg THREE TIMES A DAY ORAL 02/04/17 09:00 03/05/17 08:59 02/06/17 09:06 Levetiracetam (Keppra) 1,500 mg Q12H NG 02/04/17 09:00 03/06/17 08:59 02/06/17 09:06 Lorazepam (Ativan 2mg/ml 1ml) 1 mg Q4H PRN IV For Anxiety 02/03/17 19:15 02/10/17 19:14 02/05/17 11:57 Morphine Sulfate (Morphine Sulfate) 2 mg Q4H PRN IVP Moderate Pain (Pain Scale 4-6) 02/03/17 19:45 02/09/17 19:44 02/03/17 19:03 Ondansetron HCl (Zofran) 4 mg Q6H PRN IVP Nausea & Vomiting 02/03/17 19:45 03/04/17 19:44 Phenazopyridine HCl (Pyridium) 100 mg DAILYPRN PRN ORAL dysuria 02/03/17 19:15 03/05/17 19:14 Phenobarbital (PHENobarbital) 64.8 mg Q12HR ORAL 02/03/17 21:00 03/04/17 20:59 02/06/17 09:06 Polyethylene Glycol (Miralax) 17 gm DAILYPRN PRN ORAL Constipation 02/03/17 19:45 03/04/17 19:44 Risperidone (RisperDAL) 1 mg BEDTIME ORAL 02/03/17 21:00 03/04/17 20:59 02/05/17 22:01 Temazepam (Restoril) 15 mg HSPRN PRN ORAL Insomnia 02/03/17 19:45 02/09/17 19:44 02/04/17 22:06 Nataliia Alfaro M.D. Feb 06, 2017 12:20
[2017-02-06 16:00] VITALS: BP 94/56
--- NOTE | 2017-02-06 16:51 | Pulmonology Progress Note ---
Assessment/Plan Problems: (1) Acute renal failure (ARF) (2) UTI (urinary tract infection) (3) Hypernatremia (4) Hyperkalemia (5) Seizure disorder Assessment/Plan neuro evaluation check electrolytes check cultures video swallow pending Subjective ROS Limited/Unobtainable: No Interval Events: somnolent Allergies: Coded Allergies: NO KNOWN ALLERGIES (Unverified Allergy, Unknown, 02/08/15) Objective Last 24 Hour Vital Signs Date Time Temp Pulse Resp B/P (MAP) Pulse Ox O2 Delivery O2 Flow Rate FiO2 02/06/17 16:00 97.2 86 17 94/56 97 02/06/17 12:00 98.0 82 18 116/72 97 Room Air 02/06/17 08:00 97.9 79 18 110/69 98 Room Air 02/06/17 07:32 76 16 Room Air 21 02/06/17 04:00 97.6 76 18 108/72 96 02/06/17 00:01 97.9 87 18 107/67 97 Room Air 02/05/17 21:43 70 16 Room Air 21 02/05/17 19:56 98.1 77 16 139/81 95 Room Air General Appearance: WD/WN HEENT: normocephalic, anicteric Respiratory/Chest: chest wall non-tender, normal breath sounds Cardiovascular: no JVD Abdomen: normal bowel sounds Genitourinary: normal external genitalia Skin: no rash, no lesions Laboratory Tests 02/06/17 04:30: White Blood Count 5.5, Red Blood Count 3.95L, Hemoglobin 11.8L, Hematocrit 34.6L , Mean Corpuscular Volume 88#, Mean Corpuscular Hemoglobin 29.9, Mean Corpuscular Hemoglobin Concent 34.1, Red Cell Distribution Width 11.7, Platelet Count 164, Mean Platelet Volume 6.1L, Neutrophils (%) (Auto) 65.0, Lymphocytes ( %) (Auto) 22.5, Monocytes (%) (Auto) 9.7, Eosinophils (%) (Auto) 2.1, Basophils (%) (Auto) 0.8, Sodium Level 139#, Potassium Level 3.3L, Chloride Level 108H, Carbon Dioxide Level 26, Anion Gap 5, Blood Urea Nitrogen 5L, Creatinine 0.8#, Estimat Glomerular Filtration Rate > 60, Glucose Level 96, Uric Acid 2.9, Calcium Level 8.3L, Phosphorus Level 2.5, Magnesium Level 1.8, Total Bilirubin 0.3, Aspartate Amino Transf (AST/SGOT) 19, Alanine Aminotransferase (ALT/SGPT) 28, Alkaline Phosphatase 131H, C-Reactive Protein, Quantitative 4.7H, Pro-B- Type Natriuretic Peptide 417H, Total Protein 6.4, Albumin 2.5L, Globulin 3.9, Albumin/Globulin Ratio 0.6L, Valproic Acid (Depakene) Level 3L, Phenobarbital Level < 1.0L 02/06/17 10:00: Sodium Level 149#H, Potassium Level 4.5, Chloride Level 114H, Carbon Dioxide Level 25, Anion Gap 10, Blood Urea Nitrogen 47H, Creatinine 3.2#H, Estimat Glomerular Filtration Rate 20.7, Glucose Level 126H, Uric Acid 9.4H, Calcium Level 9.6, Phosphorus Level 4.1, Magnesium Level 2.0, Total Bilirubin 1.0, Aspartate Amino Transf (AST/SGOT) 55H, Alanine Aminotransferase (ALT/SGPT) 41, Alkaline Phosphatase 404H, C-Reactive Protein, Quantitative > 70.0H, Pro-B-Type Natriuretic Peptide 525H, Total Protein 8.6#H, Albumin 1.9L, Globulin 6.7, Albumin/Globulin Ratio 0.3L, Valproic Acid (Depakene) Level 15L, Phenobarbital Level 24.1 Current Medications Medications (Trade) Dose Ordered Sig/Ludy Route PRN Reason Start Time Stop Time Status Last Admin Dose Admin Acetaminophen (Tylenol) 650 mg Q4H PRN ORAL fever 02/03/17 19:45 03/04/17 19:44 Albuterol/ Ipratropium (Albuterol/ Ipratropium) 3 ml Q4H PRN HHN Shortness of Breath 02/05/17 13:00 02/10/17 12:59 Cefazolin Sodium 1 gm/Dextrose 55 ml @ 110 mls/hr Q8HR IVPB 02/04/17 14:00 02/11/17 13:59 02/06/17 12:58 Dextrose 1,000 ml @ 100 mls/hr Q10H IV 02/05/17 12:30 03/07/17 12:29 02/06/17 08:30 Divalproex Sodium (Depakote Sprinkles) 500 mg EVERY 12 HOURS ORAL 02/03/17 21:00 03/05/17 08:59 02/06/17 09:07 Famotidine (Pepcid I.v.) 20 mg QHS IVP 02/03/17 21:00 03/05/17 20:59 02/05/17 21:34 Gabapentin (Neurontin) 100 mg THREE TIMES A DAY ORAL 02/04/17 09:00 03/05/17 08:59 02/06/17 12:58 Levetiracetam (Keppra) 1,500 mg Q12H NG 02/04/17 09:00 03/06/17 08:59 02/06/17 09:06 Lorazepam (Ativan 2mg/ml 1ml) 1 mg Q4H PRN IV For Anxiety 02/03/17 19:15 02/10/17 19:14 02/05/17 11:57 Morphine Sulfate (Morphine Sulfate) 2 mg Q4H PRN IVP Moderate Pain (Pain Scale 4-6) 02/03/17 19:45 02/09/17 19:44 02/03/17 19:03 Ondansetron HCl (Zofran) 4 mg Q6H PRN IVP Nausea & Vomiting 02/03/17 19:45 03/04/17 19:44 Phenazopyridine HCl (Pyridium) 100 mg DAILYPRN PRN ORAL dysuria 02/03/17 19:15 03/05/17 19:14 Phenobarbital (PHENobarbital) 64.8 mg Q12HR ORAL 02/03/17 21:00 03/04/17 20:59 02/06/17 09:06 Polyethylene Glycol (Miralax) 17 gm DAILYPRN PRN ORAL Constipation 02/03/17 19:45 03/04/17 19:44 Risperidone (RisperDAL) 1 mg BEDTIME ORAL 02/03/17 21:00 03/04/17 20:59 02/05/17 22:01 Tamsulosin HCl (Flomax) 0.4 mg BEDTIME ORAL 02/06/17 21:00 03/08/17 20:59 Temazepam (Restoril) 15 mg HSPRN PRN ORAL Insomnia 02/03/17 19:45 02/09/17 19:44 02/04/17 22:06 BALDEV TRENT Feb 06, 2017 16:51
[2017-02-06 20:11] VITALS: BP 121/76
[2017-02-06] MEDS: Tamsulosin 0.4mg cap ORAL SCH (20:24)
--- NOTE | 2017-02-06 22:31 | General Progress Note ---
Assessment/Plan Status: stable Assessment/Plan mdd alcohol dependence dc risperdal prozac 20mg qam Subjective Neurologic/Psychiatric: Reports: anxiety, depressed, emotional problems Allergies: Coded Allergies: NO KNOWN ALLERGIES (Unverified Allergy, Unknown, 02/08/15) Subjective the pt c/o insomnia and depressed mood Objective Last 24 Hour Vital Signs Date Time Temp Pulse Resp B/P (MAP) Pulse Ox O2 Delivery O2 Flow Rate FiO2 02/06/17 20:11 96.8 82 19 121/76 94 02/06/17 16:00 97.2 86 17 94/56 97 02/06/17 12:00 98.0 82 18 116/72 97 Room Air 02/06/17 08:00 97.9 79 18 110/69 98 Room Air 02/06/17 07:32 76 16 Room Air 21 02/06/17 04:00 97.6 76 18 108/72 96 02/06/17 00:01 97.9 87 18 107/67 97 Room Air Intake and Output 02/06/17 02/07/17 19:00 07:00 Intake Total 1155 ml Balance 1155 ml IV Total 1155 ml # Voids 1 Laboratory Tests 02/06/17 04:30: White Blood Count 5.5, Red Blood Count 3.95L, Hemoglobin 11.8L, Hematocrit 34.6L , Mean Corpuscular Volume 88#, Mean Corpuscular Hemoglobin 29.9, Mean Corpuscular Hemoglobin Concent 34.1, Red Cell Distribution Width 11.7, Platelet Count 164, Mean Platelet Volume 6.1L, Neutrophils (%) (Auto) 65.0, Lymphocytes ( %) (Auto) 22.5, Monocytes (%) (Auto) 9.7, Eosinophils (%) (Auto) 2.1, Basophils (%) (Auto) 0.8, Sodium Level 139#, Potassium Level 3.3L, Chloride Level 108H, Carbon Dioxide Level 26, Anion Gap 5, Blood Urea Nitrogen 5L, Creatinine 0.8#, Estimat Glomerular Filtration Rate > 60, Glucose Level 96, Uric Acid 2.9, Calcium Level 8.3L, Phosphorus Level 2.5, Magnesium Level 1.8, Total Bilirubin 0.3, Aspartate Amino Transf (AST/SGOT) 19, Alanine Aminotransferase (ALT/SGPT) 28, Alkaline Phosphatase 131H, C-Reactive Protein, Quantitative 4.7H, Pro-B- Type Natriuretic Peptide 417H, Total Protein 6.4, Albumin 2.5L, Globulin 3.9, Albumin/Globulin Ratio 0.6L, Valproic Acid (Depakene) Level 3L, Phenobarbital Level < 1.0L 02/06/17 10:00: Sodium Level 149#H, Potassium Level 4.5, Chloride Level 114H, Carbon Dioxide Level 25, Anion Gap 10, Blood Urea Nitrogen 47H, Creatinine 3.2#H, Estimat Glomerular Filtration Rate 20.7, Glucose Level 126H, Uric Acid 9.4H, Calcium Level 9.6, Phosphorus Level 4.1, Magnesium Level 2.0, Total Bilirubin 1.0, Aspartate Amino Transf (AST/SGOT) 55H, Alanine Aminotransferase (ALT/SGPT) 41, Alkaline Phosphatase 404H, C-Reactive Protein, Quantitative > 70.0H, Pro-B-Type Natriuretic Peptide 525H, Total Protein 8.6#H, Albumin 1.9L, Globulin 6.7, Albumin/Globulin Ratio 0.3L, Valproic Acid (Depakene) Level 15L, Phenobarbital Level 24.1 Height (Feet): 5 Height (Inches): 11.00 Weight (Pounds): 160 General Appearance: WD/WN, no apparent distress, alert Neurologic: alert, oriented x 3, responsive, depressed affect Candido Tam M.D. Feb 06, 2017 22:31
[2017-02-07 00:02] VITALS: BP 127/69
[2017-02-07 04:00] VITALS: BP 130/67
[2017-02-07] MEDS: ceFAZolin sod 1 GM in D5W 55 ML IVPB SCH ×3 (05:24→20:34)
[2017-02-07 08:00] VITALS: BP 98/64
[2017-02-07 08:08] LABS: ALANINE AMINOTRANSFERASE 24 U/L (12-78); ALBUMIN/GLOBULIN RATIO 0.3 (1.0-2.7); ANION GAP 11 mmol/L (5-15); ASPARTATE AMINO TRANSFERASE 35 U/L (15-37); CALCIUM 9.2 MG/DL (8.5-10.1); CARBON DIOXIDE 24 MMOL/L (21-32); CHLORIDE 111 MMOL/L (98-107); CREATININE 2.8 MG/DL (0.55-1.30); GLOMERULAR FILTRATION RATE 24.2 mL/min (>60); MAGNESIUM 1.9 MG/DL (1.8-2.4); PHOSPHORUS 4.5 MG/DL (2.5-4.9); SODIUM 145 MMOL/L (136-145); URIC ACID 8.4 MG/DL (2.6-7.2)
[2017-02-07] MEDS: Depakote 125mg Sprinkles ORAL SCH ×2 (08:13→20:34)
[2017-02-07] MEDS: PHENobarbital 32.4mg tab ORAL SCH ×2 (08:13→20:34)
[2017-02-07 08:26] LABS: CRP QUANT 28.7 mg/dL (0.00-0.90)
[2017-02-07 08:44] LABS: BASOPHILS % (AUTO) 0.3 % (0.0-2.0); EOSINOPHILS % (AUTO) 0.9 % (0.0-3.0); LYMPHOCYTES % (AUTO) 17.5 % (20.0-45.0); MEAN CORPUSCULAR HEMOGLOBIN 32.6 PG (27.0-31.0); MEAN CORPUSCULAR VOLUME 99 FL (80-99); MEAN PLATELET VOLUME 6.7 FL (6.5-10.1); MONOCYTES % (AUTO) 7.4 % (1.0-10.0); NEUTROPHILS % (AUTO) 73.9 % (45.0-75.0); PLATELET COUNT 181 K/UL (150-450); RED BLOOD COUNT 2.73 M/UL (4.70-6.10); RED CELL DISTRIBUTION WIDTH 14.8 % (11.6-14.8); WHITE BLOOD COUNT 11.3 K/UL (4.8-10.8)
[2017-02-07] MEDS: levETIRAcetam 500mg/5ml Liquid NG SCH ×2 (10:40→20:35)
--- NOTE | 2017-02-07 10:46 | Infectious Diseases Prog Note ---
Assessment/Plan Assessment/Plan Mild leukocytosis, resolved- recurrent- querry if value of 5 was an error -CXR: Bilateral basilar atelectasis versus scarring, favor the latter as findings are similar to the previous study of over one month ago No acute process otherwise -Bcx NTD UTI E coli -u/a WBC 5-10, nit +, leuk +3; UCx E.coli ( S ancef); repeat UCx NTD E;levated LFts (improved from prior admission) - -acute hep panel neg 12/2016 Recent R leg cellulitis s/p Rx -xray R foot/tibia/fibula-: no acute process -venous duplex BLE: no DVT -BCx Neg -HIV ag/ab neg, RPR neg VRE colonization hx MRSA colonization ADOLFO/ Dehydration -REnal US: Cystic lesion in the right kidney with ill-defined borders. Suggest correlation with contrast CT. Simple cyst left kidney.Thickened bladder wall. Cystitis suspected. Please correlate clinically. 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, s/p GT, anemia, s/p leg fracture 2014, non verbal (expressive aphasia), chronic contractures Plan: - Continue Ancef abx d# , upon DC will change to Keflex to complete the course -/ SP IV Cefepime #3 -02/03 SP IV Vancomcyin #2 -/ SP 10 d PO keflex/Doxy -12/29 SP IV Ancef/Doxy #4 -s/p 2d IV Vanco/Cefepime 12/26 -f/u cx -Monitor CBC/BMP ,temperatures; CBC am Subjective Allergies: Coded Allergies: NO KNOWN ALLERGIES (Unverified Allergy, Unknown, 02/08/15) Subjective afebrile Cr improving WBC went from 5 to 11 but previous WBC were bt 10-11- value of 5 an error? Repeat UCx NTD Objective Vital Signs Last 24 Hour Vital Signs Date Time Temp Pulse Resp B/P (MAP) Pulse Ox O2 Delivery O2 Flow Rate FiO2 02/07/17 09:41 98.0 02/07/17 08:00 98.0 75 19 98/64 95 Room Air 02/07/17 06:40 78 16 Room Air 21 02/07/17 04:05 95 Room Air 02/07/17 04:00 98.0 67 20 130/67 95 02/07/17 00:05 97 Room Air 02/07/17 00:02 97.2 66 20 127/69 97 02/06/17 20:12 94 Room Air 02/06/17 20:11 96.8 82 19 121/76 94 02/06/17 19:10 73 16 Room Air 21 02/06/17 16:00 97.2 86 17 94/56 97 02/06/17 12:00 98.0 82 18 116/72 97 Room Air Height (Feet): 5 Height (Inches): 11.00 Weight (Pounds): 160 Objective General Appearance: other - aphasic, nad HEENT: normocephalic, atraumatic, bilateral eye PERRL, bilateral eye EOMI, moist mucus membranes Neck: normal inspection, full range of motion, supple Respiratory: normal inspection, lungs clear, normal breath sounds, no respiratory distress, no retraction, no wheezing, chest symmetrical Cardiovascular : normal inspection, regular rate, rhythm, normal capillary refill Gastrointestinal: normal inspection, non tender, soft, non-distended, no guarding Musculoskeletal: normal inspection, back normal, normal range of motion, non- tender Neurologic: other - aphasic, not ff commands Psychiatric: other - aphasic Skin: normal inspection, normal color, no rash, warm/dry, well hydrated, normal turgor Microbiology Date/Time Source Procedure Growth Status 02/06/17 06:00 Urine,Clean Catch Urine Culture - Preliminary NO GROWTH Resulted Laboratory Tests Test 02/07/17 06:27 White Blood Count 11.3 K/UL (4.8-10.8) #H Red Blood Count 2.73 M/UL (4.70-6.10) L Hemoglobin 8.9 G/DL (14.2-18.0) L Hematocrit 26.9 % (42.0-52.0) L Mean Corpuscular Volume 99 FL (80-99) # Mean Corpuscular Hemoglobin 32.6 PG (27.0-31.0) H Mean Corpuscular Hemoglobin Concent 33.0 G/DL (32.0-36.0) Red Cell Distribution Width 14.8 % (11.6-14.8) Platelet Count 181 K/UL (150-450) Mean Platelet Volume 6.7 FL (6.5-10.1) Neutrophils (%) (Auto) 73.9 % (45.0-75.0) Lymphocytes (%) (Auto) 17.5 % (20.0-45.0) L Monocytes (%) (Auto) 7.4 % (1.0-10.0) Eosinophils (%) (Auto) 0.9 % (0.0-3.0) Basophils (%) (Auto) 0.3 % (0.0-2.0) Sodium Level 145 MMOL/L (136-145) Potassium Level 4.0 MMOL/L (3.5-5.1) Chloride Level 111 MMOL/L (98-107) H Carbon Dioxide Level 24 MMOL/L (21-32) Anion Gap 11 mmol/L (5-15) Blood Urea Nitrogen 40 mg/dL (7-18) H Creatinine 2.8 MG/DL (0.55-1.30) H Estimat Glomerular Filtration Rate 24.2 mL/min (>60) Glucose Level 84 MG/DL (74-106) Uric Acid 8.4 MG/DL (2.6-7.2) H Calcium Level 9.2 MG/DL (8.5-10.1) Phosphorus Level 4.5 MG/DL (2.5-4.9) Magnesium Level 1.9 MG/DL (1.8-2.4) Total Bilirubin 0.4 MG/DL (0.2-1.0) Aspartate Amino Transf (AST/SGOT) 35 U/L (15-37) Alanine Aminotransferase (ALT/SGPT) 24 U/L (12-78) Alkaline Phosphatase 380 U/L (46-116) H C-Reactive Protein, Quantitative 28.7 mg/dL (0.00-0.90) H Total Protein 8.0 G/DL (6.4-8.2) Albumin 1.7 G/DL (3.4-5.0) L Globulin 6.3 g/dL Albumin/Globulin Ratio 0.3 (1.0-2.7) L Current Medications Medications (Trade) Dose Ordered Sig/Ludy Route PRN Reason Start Time Stop Time Status Last Admin Dose Admin Acetaminophen (Tylenol) 650 mg Q4H PRN ORAL fever 02/03/17 19:45 03/04/17 19:44 02/07/17 08:14 Albuterol/ Ipratropium (Albuterol/ Ipratropium) 3 ml Q4H PRN HHN Shortness of Breath 02/05/17 13:00 02/10/17 12:59 Cefazolin Sodium 1 gm/Dextrose 55 ml @ 110 mls/hr Q8HR IVPB 02/04/17 14:00 02/11/17 13:59 02/07/17 05:24 Dextrose 1,000 ml @ 100 mls/hr Q10H IV 02/05/17 12:30 03/07/17 12:29 02/07/17 05:21 Divalproex Sodium (Depakote Sprinkles) 500 mg EVERY 12 HOURS ORAL 02/03/17 21:00 03/05/17 08:59 02/07/17 08:13 Famotidine (Pepcid I.v.) 20 mg QHS IVP 02/03/17 21:00 03/05/17 20:59 02/06/17 20:18 Gabapentin (Neurontin) 100 mg THREE TIMES A DAY ORAL 02/04/17 09:00 03/05/17 08:59 02/07/17 08:13 Levetiracetam (Keppra) 1,500 mg Q12H NG 02/04/17 09:00 03/06/17 08:59 02/07/17 10:40 Lorazepam (Ativan 2mg/ml 1ml) 1 mg Q4H PRN IV For Anxiety 02/03/17 19:15 02/10/17 19:14 02/05/17 11:57 Morphine Sulfate (Morphine Sulfate) 2 mg Q4H PRN IVP Moderate Pain (Pain Scale 4-6) 02/03/17 19:45 02/09/17 19:44 02/03/17 19:03 Ondansetron HCl (Zofran) 4 mg Q6H PRN IVP Nausea & Vomiting 02/03/17 19:45 03/04/17 19:44 Phenazopyridine HCl (Pyridium) 100 mg DAILYPRN PRN ORAL dysuria 02/03/17 19:15 03/05/17 19:14 Phenobarbital (PHENobarbital) 64.8 mg Q12HR ORAL 02/03/17 21:00 03/04/17 20:59 02/07/17 08:13 Polyethylene Glycol (Miralax) 17 gm DAILYPRN PRN ORAL Constipation 02/03/17 19:45 03/04/17 19:44 Risperidone (RisperDAL) 1 mg BEDTIME ORAL 02/03/17 21:00 03/04/17 20:59 02/06/17 20:28 Tamsulosin HCl (Flomax) 0.4 mg BEDTIME ORAL 02/06/17 21:00 03/08/17 20:59 02/06/17 20:24 Temazepam (Restoril) 15 mg HSPRN PRN ORAL Insomnia 02/03/17 19:45 02/09/17 19:44 02/04/17 22:06 Nataliia Alfaro M.D. Feb 07, 2017 10:46
[2017-02-07 12:00] VITALS: BP 93/56
[2017-02-07 13:40] LABS: BASOPHILS % (AUTO) 0.3 % (0.0-2.0); EOSINOPHILS % (AUTO) 1.1 % (0.0-3.0); LYMPHOCYTES % (AUTO) 14.4 % (20.0-45.0); MEAN CORPUSCULAR HEMOGLOBIN 31.4 PG (27.0-31.0); MEAN CORPUSCULAR HGB CONC 32.3 G/DL (32.0-36.0); MEAN CORPUSCULAR VOLUME 97 FL (80-99); MEAN PLATELET VOLUME 6.4 FL (6.5-10.1); MONOCYTES % (AUTO) 6.5 % (1.0-10.0); NEUTROPHILS % (AUTO) 77.7 % (45.0-75.0); PLATELET COUNT 217 K/UL (150-450); RED BLOOD COUNT 3.08 M/UL (4.70-6.10); RED CELL DISTRIBUTION WIDTH 14.6 % (11.6-14.8); WHITE BLOOD COUNT 12.7 K/UL (4.8-10.8)
--- NOTE | 2017-02-07 14:45 | Nephrology Progress Note ---
Assessment/Plan Problem List: (1) Hyperkalemia (2) Dehydration (3) Hypernatremia (4) Acute renal failure (ARF) Assessment Acute renal failure (likely due to dehydration ) (on admission BUN / Cr 84/4.4) Cr today 2.8 UTI Dehydration e/lyte imbalance ( hyper Na-153, hyper K-6.1) elevated LFT dysphagia, G tube hx of CVA with R hemiparesis and aphasia seizure disorder anemia schizophrenia protein calorie malnutrition Plan Plan; check depakote and Phenbarb levels Hydrate- increase D5w gastric support- Antibiotics monitor renal parameters avoid nephrotoxics stable for DC from renal stand Subjective ROS Limited/Unobtainable: No Constitutional: Reports: malaise Objective Objective Last 24 Hour Vital Signs Date Time Temp Pulse Resp B/P (MAP) Pulse Ox O2 Delivery O2 Flow Rate FiO2 02/07/17 12:00 98.2 87 18 93/56 96 Room Air 02/07/17 09:41 98.0 02/07/17 08:00 98.0 75 19 98/64 95 Room Air 02/07/17 06:40 78 16 Room Air 21 02/07/17 04:05 95 Room Air 02/07/17 04:00 98.0 67 20 130/67 95 02/07/17 00:05 97 Room Air 02/07/17 00:02 97.2 66 20 127/69 97 02/06/17 20:12 94 Room Air 02/06/17 20:11 96.8 82 19 121/76 94 02/06/17 19:10 73 16 Room Air 21 02/06/17 16:00 97.2 86 17 94/56 97 Laboratory Tests 02/07/17 06:27: White Blood Count 11.3#H, Red Blood Count 2.73L, Hemoglobin 8.9L, Hematocrit 26.9L, Mean Corpuscular Volume 99#, Mean Corpuscular Hemoglobin 32.6H, Mean Corpuscular Hemoglobin Concent 33.0, Red Cell Distribution Width 14.8, Platelet Count 181, Mean Platelet Volume 6.7, Neutrophils (%) (Auto) 73.9, Lymphocytes (% ) (Auto) 17.5L, Monocytes (%) (Auto) 7.4, Eosinophils (%) (Auto) 0.9, Basophils (%) (Auto) 0.3, Sodium Level 145, Potassium Level 4.0, Chloride Level 111H, Carbon Dioxide Level 24, Anion Gap 11, Blood Urea Nitrogen 40H, Creatinine 2.8H , Estimat Glomerular Filtration Rate 24.2, Glucose Level 84, Uric Acid 8.4H, Calcium Level 9.2, Phosphorus Level 4.5, Magnesium Level 1.9, Total Bilirubin 0.4, Aspartate Amino Transf (AST/SGOT) 35, Alanine Aminotransferase (ALT/SGPT) 24, Alkaline Phosphatase 380H, C-Reactive Protein, Quantitative 28.7H, Total Protein 8.0, Albumin 1.7L, Globulin 6.3, Albumin/Globulin Ratio 0.3L 02/07/17 12:45: White Blood Count 12.7H, Red Blood Count 3.08L, Hemoglobin 9.7L, Hematocrit 30.0L, Mean Corpuscular Volume 97, Mean Corpuscular Hemoglobin 31.4H, Mean Corpuscular Hemoglobin Concent 32.3, Red Cell Distribution Width 14.6, Platelet Count 217, Mean Platelet Volume 6.4L, Neutrophils (%) (Auto) 77.7H, Lymphocytes (%) (Auto) 14.4L, Monocytes (%) (Auto) 6.5, Eosinophils (%) (Auto) 1.1, Basophils (%) (Auto) 0.3 Height (Feet): 5 Height (Inches): 11.00 Weight (Pounds): 160 General Appearance: no apparent distress Objective PE not change MISSAEL MOON Feb 07, 2017 14:45
--- NOTE | 2017-02-07 15:18 | Pulmonology Progress Note ---
Assessment/Plan Problems: (1) Acute renal failure (ARF) (2) UTI (urinary tract infection) (3) Hypernatremia (4) Hyperkalemia (5) Seizure disorder Assessment/Plan neuro evaluation check electrolytes check cultures video swallow pending d/w at the bed site, She doesn't want any aggressive measures or Gtube or resuscitation in future. She agreed with hospice. Subjective ROS Limited/Unobtainable: No Constitutional: Reports: no symptoms HEENT: Repors: no symptoms Respiratory: Reports: no symptoms Allergies: Coded Allergies: NO KNOWN ALLERGIES (Unverified Allergy, Unknown, 02/08/15) Objective Last 24 Hour Vital Signs Date Time Temp Pulse Resp B/P (MAP) Pulse Ox O2 Delivery O2 Flow Rate FiO2 02/07/17 12:00 98.2 87 18 93/56 96 Room Air 02/07/17 09:41 98.0 02/07/17 08:00 98.0 75 19 98/64 95 Room Air 02/07/17 06:40 78 16 Room Air 21 02/07/17 04:05 95 Room Air 02/07/17 04:00 98.0 67 20 130/67 95 02/07/17 00:05 97 Room Air 02/07/17 00:02 97.2 66 20 127/69 97 02/06/17 20:12 94 Room Air 02/06/17 20:11 96.8 82 19 121/76 94 02/06/17 19:10 73 16 Room Air 21 02/06/17 16:00 97.2 86 17 94/56 97 General Appearance: WD/WN HEENT: normocephalic, atraumatic Respiratory/Chest: chest wall non-tender, lungs clear Cardiovascular: normal peripheral pulses, normal rate Abdomen: normal bowel sounds, soft, non tender Genitourinary: normal external genitalia Extremities: no cyanosis Skin: no rash, no ulcers Microbiology Date/Time Source Procedure Growth Status 02/06/17 06:00 Urine,Clean Catch Urine Culture - Preliminary NO GROWTH Resulted Laboratory Tests 02/07/17 06:27: White Blood Count 11.3#H, Red Blood Count 2.73L, Hemoglobin 8.9L, Hematocrit 26.9L, Mean Corpuscular Volume 99#, Mean Corpuscular Hemoglobin 32.6H, Mean Corpuscular Hemoglobin Concent 33.0, Red Cell Distribution Width 14.8, Platelet Count 181, Mean Platelet Volume 6.7, Neutrophils (%) (Auto) 73.9, Lymphocytes (% ) (Auto) 17.5L, Monocytes (%) (Auto) 7.4, Eosinophils (%) (Auto) 0.9, Basophils (%) (Auto) 0.3, Sodium Level 145, Potassium Level 4.0, Chloride Level 111H, Carbon Dioxide Level 24, Anion Gap 11, Blood Urea Nitrogen 40H, Creatinine 2.8H , Estimat Glomerular Filtration Rate 24.2, Glucose Level 84, Uric Acid 8.4H, Calcium Level 9.2, Phosphorus Level 4.5, Magnesium Level 1.9, Total Bilirubin 0.4, Aspartate Amino Transf (AST/SGOT) 35, Alanine Aminotransferase (ALT/SGPT) 24, Alkaline Phosphatase 380H, C-Reactive Protein, Quantitative 28.7H, Total Protein 8.0, Albumin 1.7L, Globulin 6.3, Albumin/Globulin Ratio 0.3L 02/07/17 12:45: White Blood Count 12.7H, Red Blood Count 3.08L, Hemoglobin 9.7L, Hematocrit 30.0L, Mean Corpuscular Volume 97, Mean Corpuscular Hemoglobin 31.4H, Mean Corpuscular Hemoglobin Concent 32.3, Red Cell Distribution Width 14.6, Platelet Count 217, Mean Platelet Volume 6.4L, Neutrophils (%) (Auto) 77.7H, Lymphocytes (%) (Auto) 14.4L, Monocytes (%) (Auto) 6.5, Eosinophils (%) (Auto) 1.1, Basophils (%) (Auto) 0.3 Current Medications Medications (Trade) Dose Ordered Sig/Ludy Route PRN Reason Start Time Stop Time Status Last Admin Dose Admin Acetaminophen (Tylenol) 650 mg Q4H PRN ORAL fever 02/03/17 19:45 03/04/17 19:44 02/07/17 08:14 Albuterol/ Ipratropium (Albuterol/ Ipratropium) 3 ml Q4H PRN HHN Shortness of Breath 02/05/17 13:00 02/10/17 12:59 Cefazolin Sodium 1 gm/Dextrose 55 ml @ 110 mls/hr Q8HR IVPB 02/04/17 14:00 02/11/17 13:59 02/07/17 14:25 Dextrose 1,000 ml @ 100 mls/hr Q10H IV 02/05/17 12:30 03/07/17 12:29 02/07/17 14:38 Divalproex Sodium (Depakote Sprinkles) 500 mg EVERY 12 HOURS ORAL 02/03/17 21:00 03/05/17 08:59 02/07/17 08:13 Famotidine (Pepcid I.v.) 20 mg QHS IVP 02/03/17 21:00 03/05/17 20:59 02/06/17 20:18 Gabapentin (Neurontin) 100 mg THREE TIMES A DAY ORAL 02/04/17 09:00 03/05/17 08:59 02/07/17 14:36 Levetiracetam (Keppra) 1,500 mg Q12H NG 02/04/17 09:00 03/06/17 08:59 02/07/17 10:40 Lorazepam (Ativan 2mg/ml 1ml) 1 mg Q4H PRN IV For Anxiety 02/03/17 19:15 02/10/17 19:14 02/05/17 11:57 Morphine Sulfate (Morphine Sulfate) 2 mg Q4H PRN IVP Moderate Pain (Pain Scale 4-6) 02/03/17 19:45 02/09/17 19:44 02/03/17 19:03 Ondansetron HCl (Zofran) 4 mg Q6H PRN IVP Nausea & Vomiting 02/03/17 19:45 03/04/17 19:44 Phenazopyridine HCl (Pyridium) 100 mg DAILYPRN PRN ORAL dysuria 02/03/17 19:15 03/05/17 19:14 Phenobarbital (PHENobarbital) 64.8 mg Q12HR ORAL 02/03/17 21:00 03/04/17 20:59 02/07/17 08:13 Polyethylene Glycol (Miralax) 17 gm DAILYPRN PRN ORAL Constipation 02/03/17 19:45 03/04/17 19:44 Risperidone (RisperDAL) 1 mg BEDTIME ORAL 02/03/17 21:00 03/04/17 20:59 02/06/17 20:28 Tamsulosin HCl (Flomax) 0.4 mg BEDTIME ORAL 02/06/17 21:00 03/08/17 20:59 02/06/17 20:24 Temazepam (Restoril) 15 mg HSPRN PRN ORAL Insomnia 02/03/17 19:45 02/09/17 19:44 02/04/17 22:06 BALDEV TRENT Feb 07, 2017 15:18
[2017-02-07 16:00] VITALS: BP 113/67
[2017-02-07] MEDS ORDERED: Haloperidol 5mg/ml Inj IM PRN (16:00)
[2017-02-07 20:00] VITALS: BP 97/61
[2017-02-07] MEDS: Tamsulosin 0.4mg cap ORAL SCH (20:34)
[2017-02-08] VITALS: BP 95/54
[2017-02-08 04:00] VITALS: BP 98/52
[2017-02-08] MEDS: ceFAZolin sod 1 GM in D5W 55 ML IVPB SCH ×3 (05:07→22:10)
[2017-02-08 06:30] LABS: BASOPHILS % (AUTO) 0.2 % (0.0-2.0); EOSINOPHILS % (AUTO) 0.7 % (0.0-3.0); LYMPHOCYTES % (AUTO) 12.5 % (20.0-45.0); MEAN CORPUSCULAR HEMOGLOBIN 31.1 PG (27.0-31.0); MEAN CORPUSCULAR HGB CONC 32.3 G/DL (32.0-36.0); MEAN CORPUSCULAR VOLUME 96 FL (80-99); MEAN PLATELET VOLUME 7.9 FL (6.5-10.1); MONOCYTES % (AUTO) 6.9 % (1.0-10.0); NEUTROPHILS % (AUTO) 79.7 % (45.0-75.0); PLATELET COUNT 201 K/UL (150-450); RED BLOOD COUNT 3.06 M/UL (4.70-6.10); RED CELL DISTRIBUTION WIDTH 14.4 % (11.6-14.8); WHITE BLOOD COUNT 14.7 K/UL (4.8-10.8)
[2017-02-08 08:00] VITALS: BP 116/72
[2017-02-08] MEDS: Depakote 125mg Sprinkles ORAL SCH ×2 (08:31→22:15)
[2017-02-08] MEDS: PHENobarbital 32.4mg tab ORAL SCH ×2 (08:31→22:16)
[2017-02-08] MEDS: levETIRAcetam 500mg/5ml Liquid NG SCH ×2 (08:32→22:16)
[2017-02-08 09:20] LABS: HEMATOCRIT 26.7 % (37.5-51.0)
--- NOTE | 2017-02-08 10:43 | Nephrology Progress Note ---
Assessment/Plan Problem List: (1) Hyperkalemia (2) Dehydration (3) Hypernatremia (4) Acute renal failure (ARF) Assessment Acute renal failure (likely due to dehydration ) (on admission BUN / Cr 84/4.4) Cr today 2.8 UTI Dehydration e/lyte imbalance ( hyper Na-153, hyper K-6.1) elevated LFT dysphagia, G tube hx of CVA with R hemiparesis and aphasia seizure disorder anemia schizophrenia protein calorie malnutrition Plan Plan; no labs today check depakote and Phenbarb levels Hydrate- increase D5w gastric support- Antibiotics monitor renal parameters avoid nephrotoxics stable for DC from renal stand Subjective ROS Limited/Unobtainable: No Constitutional: Reports: malaise Objective Objective Last 24 Hour Vital Signs Date Time Temp Pulse Resp B/P (MAP) Pulse Ox O2 Delivery O2 Flow Rate FiO2 02/08/17 10:31 76 18 Room Air 21 02/08/17 08:00 97.4 73 18 116/72 94 02/08/17 04:00 97.3 80 21 98/52 95 02/08/17 00:00 97.5 76 18 95/54 94 02/07/17 20:17 72 16 Room Air 21 02/07/17 20:00 97.3 76 18 97/61 95 02/07/17 16:00 97.5 17 113/67 Room Air 02/07/17 12:00 98.2 87 18 93/56 96 Room Air Intake and Output 02/08/17 02/09/17 19:00 07:00 Intake Total 300 ml Balance 300 ml IV Total 300 ml Laboratory Tests 02/07/17 12:45: White Blood Count 12.7H, Red Blood Count 3.08L, Hemoglobin 9.7L, Hematocrit 30.0L, Mean Corpuscular Volume 97, Mean Corpuscular Hemoglobin 31.4H, Mean Corpuscular Hemoglobin Concent 32.3, Red Cell Distribution Width 14.6, Platelet Count 217, Mean Platelet Volume 6.4L, Neutrophils (%) (Auto) 77.7H, Lymphocytes (%) (Auto) 14.4L, Monocytes (%) (Auto) 6.5, Eosinophils (%) (Auto) 1.1, Basophils (%) (Auto) 0.3 02/08/17 05:35: White Blood Count 14.7H, Red Blood Count 3.06L, Hemoglobin 9.5L, Hematocrit 29.5L, Mean Corpuscular Volume 96, Mean Corpuscular Hemoglobin 31.1H, Mean Corpuscular Hemoglobin Concent 32.3, Red Cell Distribution Width 14.4, Platelet Count 201, Mean Platelet Volume 7.9, Neutrophils (%) (Auto) 79.7H, Lymphocytes ( %) (Auto) 12.5L, Monocytes (%) (Auto) 6.9, Eosinophils (%) (Auto) 0.7, Basophils (%) (Auto) 0.2 Height (Feet): 5 Height (Inches): 11.00 Weight (Pounds): 160 General Appearance: no apparent distress Objective PE not change MISSAEL MOON Feb 08, 2017 10:43
--- NOTE | 2017-02-08 11:09 | General Progress Note ---
Assessment/Plan Status: stable Assessment/Plan encephalopathy schizophrenia haldol 5mg q 6hr/prn the pt is cleared medically and maybe discharged, Subjective Neurologic/Psychiatric: Reports: anxiety, depressed, emotional problems Allergies: Coded Allergies: NO KNOWN ALLERGIES (Unverified Allergy, Unknown, 02/08/15) Subjective the pt make incomprehensible noises. the pt is agitated and received haldol IM. the pt is asleep. Objective Last 24 Hour Vital Signs Date Time Temp Pulse Resp B/P (MAP) Pulse Ox O2 Delivery O2 Flow Rate FiO2 02/08/17 10:31 76 18 Room Air 21 02/08/17 08:00 97.4 73 18 116/72 94 02/08/17 04:00 97.3 80 21 98/52 95 02/08/17 00:00 97.5 76 18 95/54 94 02/07/17 20:17 72 16 Room Air 21 02/07/17 20:00 97.3 76 18 97/61 95 02/07/17 16:00 97.5 17 113/67 Room Air 02/07/17 12:00 98.2 87 18 93/56 96 Room Air Intake and Output 02/08/17 02/09/17 19:00 07:00 Intake Total 300 ml Balance 300 ml IV Total 300 ml Laboratory Tests 02/07/17 12:45: White Blood Count 12.7H, Red Blood Count 3.08L, Hemoglobin 9.7L, Hematocrit 30.0L, Mean Corpuscular Volume 97, Mean Corpuscular Hemoglobin 31.4H, Mean Corpuscular Hemoglobin Concent 32.3, Red Cell Distribution Width 14.6, Platelet Count 217, Mean Platelet Volume 6.4L, Neutrophils (%) (Auto) 77.7H, Lymphocytes (%) (Auto) 14.4L, Monocytes (%) (Auto) 6.5, Eosinophils (%) (Auto) 1.1, Basophils (%) (Auto) 0.3 02/08/17 05:35: White Blood Count 14.7H, Red Blood Count 3.06L, Hemoglobin 9.5L, Hematocrit 29.5L, Mean Corpuscular Volume 96, Mean Corpuscular Hemoglobin 31.1H, Mean Corpuscular Hemoglobin Concent 32.3, Red Cell Distribution Width 14.4, Platelet Count 201, Mean Platelet Volume 7.9, Neutrophils (%) (Auto) 79.7H, Lymphocytes ( %) (Auto) 12.5L, Monocytes (%) (Auto) 6.9, Eosinophils (%) (Auto) 0.7, Basophils (%) (Auto) 0.2 Height (Feet): 5 Height (Inches): 11.00 Weight (Pounds): 160 General Appearance: no apparent distress, lethargic, confused Neurologic: disoriented, unresponsive Candido Tam M.D. Feb 08, 2017 11:08
[2017-02-08 12:00] VITALS: BP 102/69
--- NOTE | 2017-02-08 13:32 | Infectious Diseases Prog Note ---
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 Suggest correlation with contrast CT. Simple cyst left kidney.Thickened bladder wall. Cystitis suspected. Please correlate clinically. 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, s/p GT, anemia, s/p leg fracture 2014, non verbal (expressive aphasia), chronic contractures Plan: - Continue Ancef abx d# / , upon DC will change to Keflex to complete the course -02/04 SP IV Cefepime #3 -02/03 SP IV Vancomcyin #2 -/ SP 10 d PO keflex/Doxy -12/29 SP IV Ancef/Doxy #4 -s/p 2d IV Vanco/Cefepime 12/26 -Repeat CXR and Bcx given worsening WBC -if diarrhea obtain Cdiff -f/u cx -Monitor CBC/BMP ,temperatures; CBC am Subjective Allergies: Coded Allergies: NO KNOWN ALLERGIES (Unverified Allergy, Unknown, 02/08/15) Subjective afebrile Cr improving worsening leukocytosis Repeat UCx NTD Objective Vital Signs Last 24 Hour Vital Signs Date Time Temp Pulse Resp B/P (MAP) Pulse Ox O2 Delivery O2 Flow Rate FiO2 02/08/17 10:31 76 18 Room Air 21 02/08/17 08:00 97.4 73 18 116/72 94 02/08/17 04:00 97.3 80 21 98/52 95 02/08/17 00:00 97.5 76 18 95/54 94 02/07/17 20:17 72 16 Room Air 21 02/07/17 20:00 97.3 76 18 97/61 95 02/07/17 16:00 97.5 17 113/67 Room Air Height (Feet): 5 Height (Inches): 11.00 Weight (Pounds): 160 Objective General Appearance: other - aphasic, nad HEENT: normocephalic, atraumatic, bilateral eye PERRL, bilateral eye EOMI, moist mucus membranes Neck: normal inspection, full range of motion, supple Respiratory: normal inspection, lungs clear, normal breath sounds, no respiratory distress, no retraction, no wheezing, chest symmetrical Cardiovascular : normal inspection, regular rate, rhythm, normal capillary refill Gastrointestinal: normal inspection, non tender, soft, non-distended, no guarding Musculoskeletal: normal inspection, back normal, normal range of motion, non- tender Neurologic: other - aphasic, not ff commands Psychiatric: other - aphasic Skin: normal inspection, normal color, no rash, warm/dry, well hydrated, normal turgor Microbiology Date/Time Source Procedure Growth Status 02/06/17 06:00 Urine,Clean Catch Urine Culture - Preliminary NO GROWTH AFTER 24 HOURS Resulted Laboratory Tests Test 02/08/17 05:35 White Blood Count 14.7 K/UL (4.8-10.8) H Red Blood Count 3.06 M/UL (4.70-6.10) L Hemoglobin 9.5 G/DL (14.2-18.0) L Hematocrit 29.5 % (42.0-52.0) L Mean Corpuscular Volume 96 FL (80-99) Mean Corpuscular Hemoglobin 31.1 PG (27.0-31.0) H Mean Corpuscular Hemoglobin Concent 32.3 G/DL (32.0-36.0) Red Cell Distribution Width 14.4 % (11.6-14.8) Platelet Count 201 K/UL (150-450) Mean Platelet Volume 7.9 FL (6.5-10.1) Neutrophils (%) (Auto) 79.7 % (45.0-75.0) H Lymphocytes (%) (Auto) 12.5 % (20.0-45.0) L Monocytes (%) (Auto) 6.9 % (1.0-10.0) Eosinophils (%) (Auto) 0.7 % (0.0-3.0) Basophils (%) (Auto) 0.2 % (0.0-2.0) Current Medications Medications (Trade) Dose Ordered Sig/Ludy Route PRN Reason Start Time Stop Time Status Last Admin Dose Admin Acetaminophen (Tylenol) 650 mg Q4H PRN ORAL fever 02/03/17 19:45 03/04/17 19:44 02/07/17 08:14 Albuterol/ Ipratropium (Albuterol/ Ipratropium) 3 ml Q4H PRN HHN Shortness of Breath 02/05/17 13:00 02/10/17 12:59 Cefazolin Sodium 1 gm/Dextrose 55 ml @ 110 mls/hr Q8HR IVPB 02/04/17 14:00 02/11/17 13:59 02/08/17 05:07 Dextrose 1,000 ml @ 100 mls/hr Q10H IV 02/05/17 12:30 03/07/17 12:29 02/08/17 11:17 Divalproex Sodium (Depakote Sprinkles) 500 mg EVERY 12 HOURS ORAL 02/03/17 21:00 03/05/17 08:59 02/08/17 08:31 Famotidine (Pepcid I.v.) 20 mg QHS IVP 02/03/17 21:00 03/05/17 20:59 02/07/17 21:18 Gabapentin (Neurontin) 100 mg THREE TIMES A DAY ORAL 02/04/17 09:00 03/05/17 08:59 02/08/17 08:32 Haloperidol Lactate (Haldol) 5 mg Q6H PRN IM Agitation 02/07/17 16:00 03/09/17 15:59 02/08/17 08:08 Levetiracetam (Keppra) 1,500 mg Q12H NG 02/04/17 09:00 03/06/17 08:59 02/08/17 08:32 Lorazepam (Ativan 2mg/ml 1ml) 1 mg Q4H PRN IV For Anxiety 02/03/17 19:15 02/10/17 19:14 02/05/17 11:57 Morphine Sulfate (Morphine Sulfate) 2 mg Q4H PRN IVP Moderate Pain (Pain Scale 4-6) 02/03/17 19:45 127/17 19:44 02/03/17 19:03 Ondansetron HCl (Zofran) 4 mg Q6H PRN IVP Nausea & Vomiting 02/03/17 19:45 03/04/17 19:44 Phenazopyridine HCl (Pyridium) 100 mg DAILYPRN PRN ORAL dysuria 02/03/17 19:15 03/05/17 19:14 Phenobarbital (PHENobarbital) 64.8 mg Q12HR ORAL 02/03/17 21:00 03/04/17 20:59 02/08/17 08:31 Polyethylene Glycol (Miralax) 17 gm DAILYPRN PRN ORAL Constipation 02/03/17 19:45 03/04/17 19:44 Risperidone (RisperDAL) 2 mg BEDTIME ORAL 02/07/17 21:00 03/09/17 20:59 02/07/17 20:34 Tamsulosin HCl (Flomax) 0.4 mg BEDTIME ORAL 02/06/17 21:00 03/08/17 20:59 02/07/17 20:34 Temazepam (Restoril) 15 mg HSPRN PRN ORAL Insomnia 02/03/17 19:45 02/09/17 19:44 02/04/17 22:06 Nataliia Alfaro M.D. Feb 08, 2017 13:32
--- NOTE | 2017-02-08 14:06 | Diagnostic Imaging Report ---
Indication: Chest pain Technique: One view of the chest Comparison: 02/02/2017 Findings: Overall suboptimal inspiration. Right-sided pleural effusion is new since prior exam. There is increased right basilar atelectasis. Left-sided pleural effusion is new or increased since the prior exam, there is increased left basilar atelectasis. Upper lung collins remain clear Impression: New or increased bilateral pleural fluid and increased bilateral basilar atelectasis, since 02/02/2017
--- NOTE | 2017-02-08 14:50 | Wound Nurse Progress Note ---
Wound RN Progress Note Wound Consult reassessment #1 Right lateral mid foot DTI pressure ulcer- remains as deep tissue injury , no further deterioration present. current care is effective. #2 Right lateral malleolus stage I pressure ulcer- remains as stage 1 skin remains intact #3 Callus on Right lateral 5th toe - remains intact no further deterioration present current care if effective. Recommendation -Local wound care per protocol -Keep clean and dry -Turn and reposition -Optimize nutrition -Heel protector on both heels -Low air loss SPR mattress -Offload both heels -Assess and f/u accordingly for any changes RIYA ANNA Feb 08, 2017 14:50
[2017-02-08 16:00] VITALS: BP 110/73
--- NOTE | 2017-02-08 16:26 | Pulmonology Progress Note ---
Assessment/Plan Problems: (1) Acute renal failure (ARF) (2) UTI (urinary tract infection) (3) Hypernatremia (4) Hyperkalemia (5) Seizure disorder Assessment/Plan looks comfortable haldol for agitation family agreed with comfort care. d/w at the bed site, She doesn't want any aggressive measures or Gtube or resuscitation in future. She agreed with hospice. Subjective ROS Limited/Unobtainable: No Constitutional: Reports: no symptoms HEENT: Repors: no symptoms Respiratory: Reports: no symptoms Allergies: Coded Allergies: NO KNOWN ALLERGIES (Unverified Allergy, Unknown, 02/08/15) Objective Last 24 Hour Vital Signs Date Time Temp Pulse Resp B/P (MAP) Pulse Ox O2 Delivery O2 Flow Rate FiO2 02/08/17 12:00 97.8 76 17 102/69 97 02/08/17 10:31 76 18 Room Air 21 02/08/17 08:00 97.4 73 18 116/72 94 02/08/17 04:00 97.3 80 21 98/52 95 02/08/17 00:00 97.5 76 18 95/54 94 02/07/17 20:17 72 16 Room Air 21 02/07/17 20:00 97.3 76 18 97/61 95 Intake and Output 02/08/17 02/09/17 19:00 07:00 Intake Total 600 ml Balance 600 ml IV Total 600 ml General Appearance: WD/WN HEENT: normocephalic, atraumatic Respiratory/Chest: chest wall non-tender, lungs clear Cardiovascular: normal peripheral pulses, regular rhythm Abdomen: normal bowel sounds, soft, non tender Genitourinary: normal external genitalia Skin: no rash Neurologic/Psychiatric: lacquer polisher II-XII grossly normal, no motor/sensory deficits Lymphatic: no neck adenopathy Microbiology Date/Time Source Procedure Growth Status 02/06/17 06:00 Urine,Clean Catch Urine Culture - Preliminary NO GROWTH AFTER 24 HOURS Resulted Laboratory Tests 02/08/17 05:35: White Blood Count 14.7H, Red Blood Count 3.06L, Hemoglobin 9.5L, Hematocrit 29.5L, Mean Corpuscular Volume 96, Mean Corpuscular Hemoglobin 31.1H, Mean Corpuscular Hemoglobin Concent 32.3, Red Cell Distribution Width 14.4, Platelet Count 201, Mean Platelet Volume 7.9, Neutrophils (%) (Auto) 79.7H, Lymphocytes ( %) (Auto) 12.5L, Monocytes (%) (Auto) 6.9, Eosinophils (%) (Auto) 0.7, Basophils (%) (Auto) 0.2 Current Medications Medications (Trade) Dose Ordered Sig/Ludy Route PRN Reason Start Time Stop Time Status Last Admin Dose Admin Acetaminophen (Tylenol) 650 mg Q4H PRN ORAL fever 02/03/17 19:45 03/04/17 19:44 02/07/17 08:14 Albuterol/ Ipratropium (Albuterol/ Ipratropium) 3 ml Q4H PRN HHN Shortness of Breath 02/05/17 13:00 02/10/17 12:59 Cefazolin Sodium 1 gm/Dextrose 55 ml @ 110 mls/hr Q8HR IVPB 02/04/17 14:00 02/11/17 13:59 02/08/17 13:50 Dextrose 1,000 ml @ 100 mls/hr Q10H IV 02/05/17 12:30 03/07/17 12:29 02/08/17 11:17 Divalproex Sodium (Depakote Sprinkles) 500 mg EVERY 12 HOURS ORAL 02/03/17 21:00 03/05/17 08:59 02/08/17 08:31 Famotidine (Pepcid I.v.) 20 mg QHS IVP 02/03/17 21:00 03/05/17 20:59 02/07/17 21:18 Gabapentin (Neurontin) 100 mg THREE TIMES A DAY ORAL 02/04/17 09:00 03/05/17 08:59 02/08/17 13:46 Haloperidol Lactate (Haldol) 5 mg Q6H PRN IM Agitation 02/07/17 16:00 03/09/17 15:59 02/08/17 08:08 Levetiracetam (Keppra) 1,500 mg Q12H NG 02/04/17 09:00 03/06/17 08:59 02/08/17 08:32 Lorazepam (Ativan 2mg/ml 1ml) 1 mg Q4H PRN IV For Anxiety 02/03/17 19:15 02/10/17 19:14 02/05/17 11:57 Morphine Sulfate (Morphine Sulfate) 2 mg Q4H PRN IVP Moderate Pain (Pain Scale 4-6) 02/03/17 19:45 02/09/17 19:44 02/03/17 19:03 Ondansetron HCl (Zofran) 4 mg Q6H PRN IVP Nausea & Vomiting 02/03/17 19:45 03/04/17 19:44 Phenazopyridine HCl (Pyridium) 100 mg DAILYPRN PRN ORAL dysuria 02/03/17 19:15 03/05/17 19:14 Phenobarbital (PHENobarbital) 64.8 mg Q12HR ORAL 02/03/17 21:00 03/04/17 20:59 02/08/17 08:31 Polyethylene Glycol (Miralax) 17 gm DAILYPRN PRN ORAL Constipation 02/03/17 19:45 03/04/17 19:44 Risperidone (RisperDAL) 2 mg BEDTIME ORAL 02/07/17 21:00 03/09/17 20:59 02/07/17 20:34 Tamsulosin HCl (Flomax) 0.4 mg BEDTIME ORAL 02/06/17 21:00 03/08/17 20:59 02/07/17 20:34 Temazepam (Restoril) 15 mg HSPRN PRN ORAL Insomnia 02/03/17 19:45 02/09/17 19:44 02/04/17 22:06 BALDEV TRENT Feb 08, 2017 16:26
[2017-02-08 20:00] VITALS: BP 91/60
[2017-02-08] MEDS: Tamsulosin 0.4mg cap ORAL SCH (22:16)
[2017-02-09] VITALS: BP 96/60
[2017-02-09] MEDS: Morphine Sulfate 2mg/ml Inj IVP PRN ×2 (03:24→08:25)
[2017-02-09 04:00] VITALS: BP 102/66
[2017-02-09] MEDS: ceFAZolin sod 1 GM in D5W 55 ML IVPB SCH ×3 (05:29→21:26)
[2017-02-09 07:02] LABS: BASOPHILS % (AUTO) 0.2 % (0.0-2.0); EOSINOPHILS % (AUTO) 0.3 % (0.0-3.0); LYMPHOCYTES % (AUTO) 9.7 % (20.0-45.0); MEAN CORPUSCULAR HGB CONC 32.3 G/DL (32.0-36.0); MEAN CORPUSCULAR VOLUME 96 FL (80-99); MEAN PLATELET VOLUME 7.9 FL (6.5-10.1); MONOCYTES % (AUTO) 5.6 % (1.0-10.0); NEUTROPHILS % (AUTO) 84.2 % (45.0-75.0); PLATELET COUNT 209 K/UL (150-450); RED BLOOD COUNT 2.75 M/UL (4.70-6.10); RED CELL DISTRIBUTION WIDTH 14.4 % (11.6-14.8); WHITE BLOOD COUNT 14.9 K/UL (4.8-10.8)
[2017-02-09 07:13] LABS: ALANINE AMINOTRANSFERASE 32 U/L (12-78); ALBUMIN/GLOBULIN RATIO 0.3 (1.0-2.7); ANION GAP 10 mmol/L (5-15); ASPARTATE AMINO TRANSFERASE 31 U/L (15-37); CALCIUM 8.1 MG/DL (8.5-10.1); CARBON DIOXIDE 24 MMOL/L (21-32); CHLORIDE 105 MMOL/L (98-107); CREATININE 2.1 MG/DL (0.55-1.30); GLOMERULAR FILTRATION RATE 33.7 mL/min (>60); MAGNESIUM 1.8 MG/DL (1.8-2.4); PHOSPHORUS 4.4 MG/DL (2.5-4.9); POTASSIUM 3.9 MMOL/L (3.5-5.1); SODIUM 139 MMOL/L (136-145); TOTAL PROTEIN 6.6 G/DL (6.4-8.2)
[2017-02-09 07:38] LABS: CRP QUANT 28.4 mg/dL (0.00-0.90)
[2017-02-09 07:47] VITALS: BP 93/60
[2017-02-09] MEDS: levETIRAcetam 500mg/5ml Liquid NG SCH ×2 (08:23→21:25)
[2017-02-09] MEDS: Depakote 125mg Sprinkles ORAL SCH ×2 (08:24→21:25)
[2017-02-09] MEDS: PHENobarbital 32.4mg tab ORAL SCH ×2 (08:24→21:26)
[2017-02-09 11:21] VITALS: BP 94/56
--- NOTE | 2017-02-09 11:47 | Infectious Diseases Prog Note ---
Assessment/Plan Assessment/Plan Leukocytosis, worsening- stable- New b/l pleural effusion, r/o PNA -CXR 02/08: New or increased bilateral pleural fluid and increased bilateral basilar atelectasis, since 02/02/2017 -CXR: Bilateral basilar atelectasis versus scarring, favor the latter as findings are similar to the previous study of over one month ago No acute process otherwise -Bcx NTD UTI E coli -u/a WBC 5-10, nit +, leuk +3; UCx E.coli ( S ancef); repeat UCx NTD E;levated LFts (improved from prior admission) - -acute hep panel neg 12/2016 Recent R leg cellulitis s/p Rx -xray R foot/tibia/fibula-: no acute process -venous duplex BLE: no DVT -BCx Neg -HIV ag/ab neg, RPR neg VRE colonization hx MRSA colonization ADOLFO/ Dehydration -REnal US: Cystic lesion in the right kidney with ill-defined borders. Suggest correlation with contrast CT. Simple cyst left kidney.Thickened bladder wall. Cystitis suspected. Please correlate clinically. 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, s/p GT, anemia, s/p leg fracture 2014, non verbal (expressive aphasia), chronic contractures Plan: - Continue Ancef abx d# / , upon DC will change to Keflex to complete the course ; if febrile, worsening leukocytosis, will broad abx coverage -02/04 SP IV Cefepime #3 -02/03 SP IV Vancomcyin #2 -11/ SP 10 d PO keflex/Doxy -12/29 SP IV Ancef/Doxy #4 -s/p 2d IV Vanco/Cefepime 12/26 -obtain sputum culture and f/u Bcx -if diarrhea obtain Cdiff -f/u cx -Monitor CBC/BMP ,temperatures; CBC am Subjective Allergies: Coded Allergies: NO KNOWN ALLERGIES (Unverified Allergy, Unknown, 02/08/15) Subjective afebrile leukocytosis stable CXR new b/l pleural effusion Repeat UCx NTD Objective Vital Signs Last 24 Hour Vital Signs Date Time Temp Pulse Resp B/P (MAP) Pulse Ox O2 Delivery O2 Flow Rate FiO2 02/09/17 11:21 97.5 81 21 94/56 95 Room Air 02/09/17 08:09 75 16 Room Air 21 02/09/17 07:47 97.2 77 20 93/60 96 Room Air 02/09/17 04:00 97.8 82 20 102/66 97 02/09/17 00:00 97.7 87 18 96/60 96 02/08/17 20:00 97.2 79 18 91/60 95 02/08/17 19:30 80 16 Room Air 21 02/08/17 16:00 97.2 75 18 110/73 96 Room Air 02/08/17 12:00 97.8 76 17 102/69 97 Height (Feet): 5 Height (Inches): 11.00 Weight (Pounds): 160 Objective General Appearance: other - aphasic, nad HEENT: normocephalic, atraumatic, bilateral eye PERRL, bilateral eye EOMI, moist mucus membranes Neck: normal inspection, full range of motion, supple Respiratory: normal inspection, lungs clear, normal breath sounds, no respiratory distress, no retraction, no wheezing, chest symmetrical Cardiovascular : normal inspection, regular rate, rhythm, normal capillary refill Gastrointestinal: normal inspection, non tender, soft, non-distended, no guarding Musculoskeletal: normal inspection, back normal, normal range of motion, non- tender Neurologic: other - aphasic, not ff commands Psychiatric: other - aphasic Skin: normal inspection, normal color, no rash, warm/dry, well hydrated, normal turgor Laboratory Tests Test 02/09/17 04:50 White Blood Count 14.9 K/UL (4.8-10.8) H Red Blood Count 2.75 M/UL (4.70-6.10) L Hemoglobin 8.5 G/DL (14.2-18.0) L Hematocrit 26.4 % (42.0-52.0) L Mean Corpuscular Volume 96 FL (80-99) Mean Corpuscular Hemoglobin 31.0 PG (27.0-31.0) Mean Corpuscular Hemoglobin Concent 32.3 G/DL (32.0-36.0) Red Cell Distribution Width 14.4 % (11.6-14.8) Platelet Count 209 K/UL (150-450) Mean Platelet Volume 7.9 FL (6.5-10.1) Neutrophils (%) (Auto) 84.2 % (45.0-75.0) H Lymphocytes (%) (Auto) 9.7 % (20.0-45.0) L Monocytes (%) (Auto) 5.6 % (1.0-10.0) Eosinophils (%) (Auto) 0.3 % (0.0-3.0) Basophils (%) (Auto) 0.2 % (0.0-2.0) Sodium Level 139 MMOL/L (136-145) Potassium Level 3.9 MMOL/L (3.5-5.1) Chloride Level 105 MMOL/L (98-107) Carbon Dioxide Level 24 MMOL/L (21-32) Anion Gap 10 mmol/L (5-15) Blood Urea Nitrogen 32 mg/dL (7-18) H Creatinine 2.1 MG/DL (0.55-1.30) H Estimat Glomerular Filtration Rate 33.7 mL/min (>60) Glucose Level 101 MG/DL (74-106) Calcium Level 8.1 MG/DL (8.5-10.1) L Phosphorus Level 4.4 MG/DL (2.5-4.9) Magnesium Level 1.8 MG/DL (1.8-2.4) Total Bilirubin 0.3 MG/DL (0.2-1.0) Aspartate Amino Transf (AST/SGOT) 31 U/L (15-37) Alanine Aminotransferase (ALT/SGPT) 32 U/L (12-78) Alkaline Phosphatase 469 U/L (46-116) H C-Reactive Protein, Quantitative 28.4 mg/dL (0.00-0.90) H Pro-B-Type Natriuretic Peptide 725 pg/mL (0-125) H Total Protein 6.6 G/DL (6.4-8.2) Albumin 1.7 G/DL (3.4-5.0) L Globulin 4.9 g/dL Albumin/Globulin Ratio 0.3 (1.0-2.7) L Current Medications Medications (Trade) Dose Ordered Sig/Ludy Route PRN Reason Start Time Stop Time Status Last Admin Dose Admin Acetaminophen (Tylenol) 650 mg Q4H PRN ORAL fever 02/03/17 19:45 03/04/17 19:44 02/07/17 08:14 Albuterol/ Ipratropium (Albuterol/ Ipratropium) 3 ml Q4H PRN HHN Shortness of Breath 02/05/17 13:00 02/10/17 12:59 Cefazolin Sodium 1 gm/Dextrose 55 ml @ 110 mls/hr Q8HR IVPB 02/04/17 14:00 02/11/17 13:59 02/09/17 05:29 Dextrose 1,000 ml @ 100 mls/hr Q10H IV 02/05/17 12:30 03/07/17 12:29 02/09/17 06:52 Divalproex Sodium (Depakote Sprinkles) 500 mg EVERY 12 HOURS ORAL 02/03/17 21:00 03/05/17 08:59 02/09/17 08:24 Famotidine (Pepcid I.v.) 20 mg QHS IVP 02/03/17 21:00 03/05/17 20:59 02/08/17 22:04 Gabapentin (Neurontin) 100 mg THREE TIMES A DAY ORAL 02/04/17 09:00 03/05/17 08:59 02/09/17 08:24 Haloperidol Lactate (Haldol) 5 mg Q6H PRN IM Agitation 02/07/17 16:00 03/09/17 15:59 02/08/17 08:08 Levetiracetam (Keppra) 1,500 mg Q12H NG 02/04/17 09:00 03/06/17 08:59 02/09/17 08:23 Lorazepam (Ativan 2mg/ml 1ml) 1 mg Q4H PRN IV For Anxiety 02/03/17 19:15 02/10/17 19:14 02/05/17 11:57 Morphine Sulfate (Morphine Sulfate) 2 mg Q4H PRN IVP Moderate Pain (Pain Scale 4-6) 02/03/17 19:45 02/09/17 19:44 02/09/17 08:25 Ondansetron HCl (Zofran) 4 mg Q6H PRN IVP Nausea & Vomiting 02/03/17 19:45 03/04/17 19:44 Phenazopyridine HCl (Pyridium) 100 mg DAILYPRN PRN ORAL dysuria 02/03/17 19:15 03/05/17 19:14 Phenobarbital (PHENobarbital) 64.8 mg Q12HR ORAL 02/03/17 21:00 03/04/17 20:59 02/09/17 08:24 Polyethylene Glycol (Miralax) 17 gm DAILYPRN PRN ORAL Constipation 02/03/17 19:45 03/04/17 19:44 02/09/17 08:25 Risperidone (RisperDAL) 2 mg BEDTIME ORAL 02/07/17 21:00 03/09/17 20:59 02/08/17 22:14 Tamsulosin HCl (Flomax) 0.4 mg BEDTIME ORAL 02/06/17 21:00 03/08/17 20:59 02/08/17 22:16 Temazepam (Restoril) 15 mg HSPRN PRN ORAL Insomnia 02/03/17 19:45 02/09/17 19:44 02/04/17 22:06 Nataliia Alfaro M.D. Feb 09, 2017 11:47
--- NOTE | 2017-02-09 13:05 | Nephrology Progress Note ---
Assessment/Plan Problem List: (1) Hyperkalemia (2) Dehydration (3) Hypernatremia (4) Acute renal failure (ARF) Assessment Acute renal failure (likely due to dehydration ) (on admission BUN / Cr 84/4.4) Cr today 2.1 UTI Dehydration e/lyte imbalance ( hyper Na-153, hyper K-6.1) elevated LFT dysphagia, G tube hx of CVA with R hemiparesis and aphasia seizure disorder anemia schizophrenia protein calorie malnutrition Plan Plan; Hydrate- increase D5w gastric support- Antibiotics monitor renal parameters avoid nephrotoxics stable for DC from renal stand Subjective ROS Limited/Unobtainable: No Objective Objective Last 24 Hour Vital Signs Date Time Temp Pulse Resp B/P (MAP) Pulse Ox O2 Delivery O2 Flow Rate FiO2 02/09/17 11:21 97.5 81 21 94/56 95 Room Air 02/09/17 08:09 75 16 Room Air 21 02/09/17 07:47 97.2 77 20 93/60 96 Room Air 02/09/17 04:00 97.8 82 20 102/66 97 02/09/17 00:00 97.7 87 18 96/60 96 02/08/17 20:00 97.2 79 18 91/60 95 02/08/17 19:30 80 16 Room Air 21 02/08/17 16:00 97.2 75 18 110/73 96 Room Air Intake and Output 02/09/17 02/10/17 19:00 07:00 Intake Total 120 ml Output Total 200 ml Balance -80 ml Intake Oral 120 ml Output Urine Total 200 ml # Voids 2 Laboratory Tests 02/09/17 04:50: White Blood Count 14.9H, Red Blood Count 2.75L, Hemoglobin 8.5L, Hematocrit 26.4L, Mean Corpuscular Volume 96, Mean Corpuscular Hemoglobin 31.0, Mean Corpuscular Hemoglobin Concent 32.3, Red Cell Distribution Width 14.4, Platelet Count 209, Mean Platelet Volume 7.9, Neutrophils (%) (Auto) 84.2H, Lymphocytes ( %) (Auto) 9.7L, Monocytes (%) (Auto) 5.6, Eosinophils (%) (Auto) 0.3, Basophils (%) (Auto) 0.2, Sodium Level 139, Potassium Level 3.9, Chloride Level 105, Carbon Dioxide Level 24, Anion Gap 10, Blood Urea Nitrogen 32H, Creatinine 2.1H , Estimat Glomerular Filtration Rate 33.7, Glucose Level 101, Calcium Level 8.1L , Phosphorus Level 4.4, Magnesium Level 1.8, Total Bilirubin 0.3, Aspartate Amino Transf (AST/SGOT) 31, Alanine Aminotransferase (ALT/SGPT) 32, Alkaline Phosphatase 469H, C-Reactive Protein, Quantitative 28.4H, Pro-B-Type Natriuretic Peptide 725H, Total Protein 6.6, Albumin 1.7L, Globulin 4.9, Albumin /Globulin Ratio 0.3L Height (Feet): 5 Height (Inches): 11.00 Weight (Pounds): 160 General Appearance: no apparent distress Cardiovascular: normal rate Respiratory/Chest: decreased breath sounds Abdomen: distended Objective PE not change MISSAEL MOON Feb 09, 2017 13:05
[2017-02-09] MEDS ORDERED: Tubing IV Secondary IV ONE (15:40)
--- NOTE | 2017-02-09 15:50 | Pulmonology Progress Note ---
Assessment/Plan Problems: (1) Acute renal failure (ARF) (2) UTI (urinary tract infection) (3) Hypernatremia (4) Hyperkalemia (5) Seizure disorder Assessment/Plan looks comfortable haldol for agitation family agreed with comfort care. eating 10% of food speech therapist recommended "UPGRADE TO [facility] SOFT FINELY CHOPPED" dc to [facility] under hospice. Subjective ROS Limited/Unobtainable: No Interval Events: looks comfortable Allergies: Coded Allergies: NO KNOWN ALLERGIES (Unverified Allergy, Unknown, 02/08/15) Objective Last 24 Hour Vital Signs Date Time Temp Pulse Resp B/P (MAP) Pulse Ox O2 Delivery O2 Flow Rate FiO2 02/09/17 11:21 97.5 81 21 94/56 95 Room Air 02/09/17 08:09 75 16 Room Air 21 02/09/17 07:47 97.2 77 20 93/60 96 Room Air 02/09/17 04:00 97.8 82 20 102/66 97 02/09/17 00:00 97.7 87 18 96/60 96 02/08/17 20:00 97.2 79 18 91/60 95 02/08/17 19:30 80 16 Room Air 21 02/08/17 16:00 97.2 75 18 110/73 96 Room Air Intake and Output 02/09/17 02/10/17 19:00 07:00 Intake Total 120 ml Output Total 200 ml Balance -80 ml Intake Oral 120 ml Output Urine Total 200 ml # Voids 2 General Appearance: WD/WN HEENT: normocephalic, atraumatic Respiratory/Chest: chest wall non-tender, lungs clear Cardiovascular: normal peripheral pulses, normal rate Abdomen: normal bowel sounds, soft, non tender Genitourinary: normal external genitalia Extremities: no clubbing Skin: no lesions, no ulcers Laboratory Tests 02/09/17 04:50: White Blood Count 14.9H, Red Blood Count 2.75L, Hemoglobin 8.5L, Hematocrit 26.4L, Mean Corpuscular Volume 96, Mean Corpuscular Hemoglobin 31.0, Mean Corpuscular Hemoglobin Concent 32.3, Red Cell Distribution Width 14.4, Platelet Count 209, Mean Platelet Volume 7.9, Neutrophils (%) (Auto) 84.2H, Lymphocytes ( %) (Auto) 9.7L, Monocytes (%) (Auto) 5.6, Eosinophils (%) (Auto) 0.3, Basophils (%) (Auto) 0.2, Sodium Level 139, Potassium Level 3.9, Chloride Level 105, Carbon Dioxide Level 24, Anion Gap 10, Blood Urea Nitrogen 32H, Creatinine 2.1H , Estimat Glomerular Filtration Rate 33.7, Glucose Level 101, Calcium Level 8.1L , Phosphorus Level 4.4, Magnesium Level 1.8, Total Bilirubin 0.3, Aspartate Amino Transf (AST/SGOT) 31, Alanine Aminotransferase (ALT/SGPT) 32, Alkaline Phosphatase 469H, C-Reactive Protein, Quantitative 28.4H, Pro-B-Type Natriuretic Peptide 725H, Total Protein 6.6, Albumin 1.7L, Globulin 4.9, Albumin /Globulin Ratio 0.3L Current Medications Medications (Trade) Dose Ordered Sig/Ludy Route PRN Reason Start Time Stop Time Status Last Admin Dose Admin Acetaminophen (Tylenol) 650 mg Q4H PRN ORAL fever 02/03/17 19:45 03/04/17 19:44 02/07/17 08:14 Albuterol/ Ipratropium (Albuterol/ Ipratropium) 3 ml Q4H PRN HHN Shortness of Breath 02/05/17 13:00 02/10/17 12:59 Cefazolin Sodium 1 gm/Dextrose 55 ml @ 110 mls/hr Q8HR IVPB 02/04/17 14:00 02/11/17 13:59 02/09/17 14:00 Dextrose 1,000 ml @ 100 mls/hr Q10H IV 02/05/17 12:30 03/07/17 12:29 02/09/17 06:52 Divalproex Sodium (Depakote Sprinkles) 500 mg EVERY 12 HOURS ORAL 02/03/17 21:00 03/05/17 08:59 02/09/17 08:24 Famotidine (Pepcid I.v.) 20 mg QHS IVP 02/03/17 21:00 03/05/17 20:59 02/08/17 22:04 Gabapentin (Neurontin) 100 mg THREE TIMES A DAY ORAL 02/04/17 09:00 03/05/17 08:59 02/09/17 13:59 Haloperidol Lactate (Haldol) 5 mg Q6H PRN IM Agitation 02/07/17 16:00 03/09/17 15:59 02/08/17 08:08 Levetiracetam (Keppra) 1,500 mg Q12H NG 02/04/17 09:00 03/06/17 08:59 02/09/17 08:23 Lorazepam (Ativan 2mg/ml 1ml) 1 mg Q4H PRN IV For Anxiety 02/03/17 19:15 02/10/17 19:14 02/05/17 11:57 Morphine Sulfate (Morphine Sulfate) 2 mg Q4H PRN IVP Moderate Pain (Pain Scale 4-6) 02/03/17 19:45 02/09/17 19:44 02/09/17 08:25 Ondansetron HCl (Zofran) 4 mg Q6H PRN IVP Nausea & Vomiting 02/03/17 19:45 03/04/17 19:44 Phenazopyridine HCl (Pyridium) 100 mg DAILYPRN PRN ORAL dysuria 02/03/17 19:15 03/05/17 19:14 Phenobarbital (PHENobarbital) 64.8 mg Q12HR ORAL 02/03/17 21:00 03/04/17 20:59 02/09/17 08:24 Polyethylene Glycol (Miralax) 17 gm DAILYPRN PRN ORAL Constipation 02/03/17 19:45 03/04/17 19:44 02/09/17 08:25 Risperidone (RisperDAL) 2 mg BEDTIME ORAL 02/07/17 21:00 03/09/17 20:59 02/08/17 22:14 Tamsulosin HCl (Flomax) 0.4 mg BEDTIME ORAL 02/06/17 21:00 03/08/17 20:59 02/08/17 22:16 Temazepam (Restoril) 15 mg HSPRN PRN ORAL Insomnia 02/03/17 19:45 02/09/17 19:44 02/04/17 22:06 BALDEV TRENT Feb 09, 2017 15:50
[2017-02-09] MEDS ORDERED: HALDOL5 MG/1 ML IJ (15:53)
[2017-02-09 16:00] VITALS: BP 104/56
[2017-02-09] MEDS ORDERED: LORazepam Inj 2mg/ml 1ml IM ONE (18:50)
[2017-02-09 19:45] VITALS: BP 98/59
[2017-02-09] MEDS: Tamsulosin 0.4mg cap ORAL SCH (21:25)
[2017-02-10 00:40] VITALS: BP 107/53
[2017-02-10 04:00] VITALS: BP 97/61
[2017-02-10] MEDS: ceFAZolin sod 1 GM in D5W 55 ML IVPB SCH (05:02)
[2017-02-10 05:08] VITALS: BP 97/61
[2017-02-10 07:47] LABS: MEAN CORPUSCULAR HEMOGLOBIN 31.8 PG (27.0-31.0); MEAN CORPUSCULAR HGB CONC 33.2 G/DL (32.0-36.0); MEAN CORPUSCULAR VOLUME 96 FL (80-99); MEAN PLATELET VOLUME 8.3 FL (6.5-10.1); PLATELET COUNT 230 K/UL (150-450); RED BLOOD COUNT 3.16 M/UL (4.70-6.10); RED CELL DISTRIBUTION WIDTH 14.5 % (11.6-14.8)
[2017-02-10 08:00] VITALS: BP 92/58
[2017-02-10 08:20] LABS: BAND NEUTROPHILS % (MANUAL) 1 % (0-8); BASOPHILS % (MANUAL) 0 % (0-2); EOSINOPHILS % (MANUAL) 0 % (0-3); LYMPHOCYTES % (MANUAL) 7 % (20-45); METAMYELOCYTES % 1 % (0-0); NEUTROPHILS % (MANUAL) 82 % (45-75); PLATELET ESTIMATE ADEQUATE; PLATELET MORPHOLOGY NORMAL; SPHEROCYTES 1+; TOTAL CELLS COUNTED 100
[2017-02-10 08:21] LABS: ANISOCYTOSIS 1+
[2017-02-10] MEDS: Depakote 125mg Sprinkles ORAL SCH (09:00)
[2017-02-10] MEDS: levETIRAcetam 500mg/5ml Liquid NG SCH (09:00)
[2017-02-10] MEDS: PHENobarbital 32.4mg tab ORAL SCH (09:00)
--- NOTE | 2017-02-10 13:18 | Nephrology Progress Note ---
Assessment/Plan Problem List: (1) Hyperkalemia (2) Dehydration (3) Hypernatremia (4) Acute renal failure (ARF) Assessment Acute renal failure (likely due to dehydration ) (on admission BUN / Cr 84/4.4) Cr today 2.1 UTI Dehydration e/lyte imbalance ( hyper Na-153, hyper K-6.1) elevated LFT dysphagia, G tube hx of CVA with R hemiparesis and aphasia seizure disorder anemia schizophrenia protein calorie malnutrition Plan Plan; Hydrate- increase D5w gastric support- Antibiotics monitor renal parameters avoid nephrotoxics stable for DC from renal stand Subjective ROS Limited/Unobtainable: No Constitutional: Reports: malaise Objective Objective Last 24 Hour Vital Signs Date Time Temp Pulse Resp B/P (MAP) Pulse Ox O2 Delivery O2 Flow Rate FiO2 02/10/17 08:00 97.0 79 18 92/58 Room Air 96.0 02/10/17 06:07 97.7 02/10/17 05:08 97.7 73 19 97/61 93 Room Air 02/10/17 04:00 97.7 73 19 97/61 93 Room Air 02/10/17 00:40 97.7 82 19 107/53 93 Room Air 02/09/17 21:49 110 20 Room Air 21 02/09/17 19:45 97.7 101 19 98/59 97 Room Air 02/09/17 16:00 97.9 96 20 104/56 91 Intake and Output 02/10/17 02/11/17 19:00 07:00 Intake Total 300 ml Balance 300 ml IV Total 300 ml Laboratory Tests 02/10/17 06:10: White Blood Count 18.0H, Red Blood Count 3.16L, Hemoglobin 10.0L, Hematocrit 30.2L, Mean Corpuscular Volume 96, Mean Corpuscular Hemoglobin 31.8H, Mean Corpuscular Hemoglobin Concent 33.2, Red Cell Distribution Width 14.5, Platelet Count 230, Mean Platelet Volume 8.3, Neutrophils (%) (Auto) , Lymphocytes (%) ( Auto) , Monocytes (%) (Auto) , Eosinophils (%) (Auto) , Basophils (%) (Auto) , Differential Total Cells Counted 100, Neutrophils % (Manual) 82H, Lymphocytes % (Manual) 7L, Monocytes % (Manual) 9, Eosinophils % (Manual) 0, Basophils % ( Manual) 0, Metamyelocytes % 1H, Band Neutrophils 1, Platelet Estimate Adequate, Platelet Morphology Normal, Anisocytosis 1+, Spherocytes 1+ Height (Feet): 5 Height (Inches): 11.00 Weight (Pounds): 160 General Appearance: no apparent distress Objective PE not change MISSAEL MOON Feb 10, 2017 13:18
--- NOTE | 2017-02-10 13:40 | Geriatric Progress Note ---
Assessment/Plan Assessment/Plan encephalopathy cont current meds Subjective Functional Changes: 01/10 Mood/Memory: Reports: prior hx, anxiety, depressed feelings, emotional problems Geriatric Geriatric Last 24 Hour Vital Signs Date Time Temp Pulse Resp B/P (MAP) Pulse Ox O2 Delivery O2 Flow Rate FiO2 02/10/17 08:00 97.0 79 18 92/58 Room Air 96.0 02/10/17 06:07 97.7 02/10/17 05:08 97.7 73 19 97/61 93 Room Air 02/10/17 04:00 97.7 73 19 97/61 93 Room Air 02/10/17 00:40 97.7 82 19 107/53 93 Room Air 02/09/17 21:49 110 20 Room Air 21 02/09/17 19:45 97.7 101 19 98/59 97 Room Air 02/09/17 16:00 97.9 96 20 104/56 91 Intake and Output 02/10/17 02/11/17 19:00 07:00 Intake Total 300 ml Balance 300 ml IV Total 300 ml Laboratory Tests Test 02/10/17 06:10 White Blood Count 18.0 K/UL (4.8-10.8) H Red Blood Count 3.16 M/UL (4.70-6.10) L Hemoglobin 10.0 G/DL (14.2-18.0) L Hematocrit 30.2 % (42.0-52.0) L Mean Corpuscular Volume 96 FL (80-99) Mean Corpuscular Hemoglobin 31.8 PG (27.0-31.0) H Mean Corpuscular Hemoglobin Concent 33.2 G/DL (32.0-36.0) Red Cell Distribution Width 14.5 % (11.6-14.8) Platelet Count 230 K/UL (150-450) Mean Platelet Volume 8.3 FL (6.5-10.1) Neutrophils (%) (Auto) % (45.0-75.0) Lymphocytes (%) (Auto) % (20.0-45.0) Monocytes (%) (Auto) % (1.0-10.0) Eosinophils (%) (Auto) % (0.0-3.0) Basophils (%) (Auto) % (0.0-2.0) Differential Total Cells Counted 100 Neutrophils % (Manual) 82 % (45-75) H Lymphocytes % (Manual) 7 % (20-45) L Monocytes % (Manual) 9 % (1-10) Eosinophils % (Manual) 0 % (0-3) Basophils % (Manual) 0 % (0-2) Metamyelocytes % 1 % (0-0) H Band Neutrophils 1 % (0-8) Platelet Estimate Adequate Platelet Morphology Normal Anisocytosis 1+ Spherocytes 1+ Height (Feet): 5 Height (Inches): 11.00 Weight (Pounds): 160 General Appearance: normal inspection, well appearing, alert Neurologic: alert Psychiatric Orientation: disoriented Affect: flat Insight: poor Candido Tam M.D. Feb 10, 2017 13:40
--- NOTE | 2017-02-10 13:41 | General Progress Note ---
Assessment/Plan Status: stable Assessment/Plan encephalopathy schizophrenia haldol 5mg q 6hr/prn the pt is cleared medically and maybe discharged, Subjective Date patient seen: Feb 09, 2017 Neurologic/Psychiatric: Reports: anxiety, depressed Allergies: Coded Allergies: NO KNOWN ALLERGIES (Unverified Allergy, Unknown, 02/08/15) Subjective the pt make incomprehensible noises. the pt is agitated and received haldol IM. the pt is asleep. Objective Last 24 Hour Vital Signs Date Time Temp Pulse Resp B/P (MAP) Pulse Ox O2 Delivery O2 Flow Rate FiO2 02/10/17 08:00 97.0 79 18 92/58 Room Air 96.0 02/10/17 06:07 97.7 02/10/17 05:08 97.7 73 19 97/61 93 Room Air 02/10/17 04:00 97.7 73 19 97/61 93 Room Air 02/10/17 00:40 97.7 82 19 107/53 93 Room Air 02/09/17 21:49 110 20 Room Air 21 02/09/17 19:45 97.7 101 19 98/59 97 Room Air 02/09/17 16:00 97.9 96 20 104/56 91 Intake and Output 02/10/17 02/11/17 19:00 07:00 Intake Total 300 ml Balance 300 ml IV Total 300 ml Laboratory Tests 02/10/17 06:10: White Blood Count 18.0H, Red Blood Count 3.16L, Hemoglobin 10.0L, Hematocrit 30.2L, Mean Corpuscular Volume 96, Mean Corpuscular Hemoglobin 31.8H, Mean Corpuscular Hemoglobin Concent 33.2, Red Cell Distribution Width 14.5, Platelet Count 230, Mean Platelet Volume 8.3, Neutrophils (%) (Auto) , Lymphocytes (%) ( Auto) , Monocytes (%) (Auto) , Eosinophils (%) (Auto) , Basophils (%) (Auto) , Differential Total Cells Counted 100, Neutrophils % (Manual) 82H, Lymphocytes % (Manual) 7L, Monocytes % (Manual) 9, Eosinophils % (Manual) 0, Basophils % ( Manual) 0, Metamyelocytes % 1H, Band Neutrophils 1, Platelet Estimate Adequate, Platelet Morphology Normal, Anisocytosis 1+, Spherocytes 1+ Height (Feet): 5 Height (Inches): 11.00 Weight (Pounds): 160 General Appearance: alert, confused Neurologic: disoriented Candido Tam M.D. Feb 10, 2017 13:41
--- NOTE | 2017-02-10 17:02 | Pulmonology Progress Note ---
Assessment/Plan Problems: (1) Acute renal failure (ARF) (2) UTI (urinary tract infection) (3) Hypernatremia (4) Hyperkalemia (5) Seizure disorder Assessment/Plan looks comfortable haldol for agitation family agreed with comfort care and no hospitalization eating 10% of food dc to [facility] under hospice. family agreed Subjective Interval Events: sedated Allergies: Coded Allergies: NO KNOWN ALLERGIES (Unverified Allergy, Unknown, 02/08/15) Objective Last 24 Hour Vital Signs Date Time Temp Pulse Resp B/P (MAP) Pulse Ox O2 Delivery O2 Flow Rate FiO2 02/10/17 08:00 97.0 79 18 92/58 Room Air 96.0 02/10/17 06:07 97.7 02/10/17 05:08 97.7 73 19 97/61 93 Room Air 02/10/17 04:00 97.7 73 19 97/61 93 Room Air 02/10/17 00:40 97.7 82 19 107/53 93 Room Air 02/09/17 21:49 110 20 Room Air 21 02/09/17 19:45 97.7 101 19 98/59 97 Room Air Intake and Output 02/10/17 02/11/17 19:00 07:00 Intake Total 380 ml Balance 380 ml Intake Oral 80 ml IV Total 300 ml # Voids 4 General Appearance: WD/WN HEENT: normocephalic, atraumatic, PERRL Respiratory/Chest: chest wall non-tender, lungs clear Cardiovascular: normal peripheral pulses, normal rate Abdomen: normal bowel sounds, soft, non tender Extremities: no cyanosis, no clubbing Neurologic/Psychiatric: cotton ginner II-XII grossly normal Lymphatic: no neck adenopathy Microbiology Date/Time Source Procedure Growth Status 02/08/17 13:45 Blood Blood Culture - Preliminary NO GROWTH AFTER 24 HOURS Resulted 02/08/17 13:40 Blood Blood Culture - Preliminary NO GROWTH AFTER 24 HOURS Resulted Laboratory Tests 02/10/17 06:10: White Blood Count 18.0H, Red Blood Count 3.16L, Hemoglobin 10.0L, Hematocrit 30.2L, Mean Corpuscular Volume 96, Mean Corpuscular Hemoglobin 31.8H, Mean Corpuscular Hemoglobin Concent 33.2, Red Cell Distribution Width 14.5, Platelet Count 230, Mean Platelet Volume 8.3, Neutrophils (%) (Auto) , Lymphocytes (%) ( Auto) , Monocytes (%) (Auto) , Eosinophils (%) (Auto) , Basophils (%) (Auto) , Differential Total Cells Counted 100, Neutrophils % (Manual) 82H, Lymphocytes % (Manual) 7L, Monocytes % (Manual) 9, Eosinophils % (Manual) 0, Basophils % ( Manual) 0, Metamyelocytes % 1H, Band Neutrophils 1, Platelet Estimate Adequate, Platelet Morphology Normal, Anisocytosis 1+, Spherocytes 1+ BALDEV TRENT Feb 10, 2017 17:02
--- NOTE | 2017-02-14 13:35 | Discharge Summary ---
Discharge Summary Hospital Course Date of Admission Feb 02, 2017 at 17:25 Date of Discharge Feb 10, 2017 at 11:25 Admitting Diagnosis generalized weakness HPI Bhavin Munson is a 51 year old male who was admitted on Feb 02, 2017 at 17:25 for Generalized Weakness Hospital Course dc summary #[id number] Discharge Medications New Medications: Haloperidol Lactate (Haldol) 5 Mg/1 Ml Ampul 5 MG IJ EVERY 4 HOURS for 28 Days, AMP Continued Medications: Bisacodyl (Dulcolax) 10 Mg Supp.rect 10 MG RC QOD PRN for Constipation, SUPP INSERT 1 UNIT RECTALLY EVERY OTHER DAY NEEDED FOR CONSTIPATION IF MILK OF MAGNESIA IS INEFFECTIVE Divalproex Sodium* (Depakote Er*) 500 Mg Tab.er.24h 500 MG ORAL EVERY 12 HOURS, TAB Docusate Sodium* (Colace*) 100 Mg Capsule 100 MG ORAL DAILY, CAP Hydrocodone Bit/Acetaminophen 5-325* ([place] 5-325 Tablet*) 1 Each Tablet 1 TAB ORAL Q6HR PRN for For Pain, TAB Ipratropium/Albuterol Sulfate (DuoNeb 0.5-3(2.5)mg/3ml) 3 Ml Ampul.neb 3 ML HHN Q4HR PRN for Shortness of Breath Levetiracetam (Keppra) 500 Mg Tab 1500 MG ORAL EVERY 12 HOURS, #50 TAB 0 Refills Lorazepam* (Lorazepam*) 0.5 Mg Tablet 0.5 MG ORAL Q6HR PRN for For Anxiety Phenobarbital (Phenobarbital) 100 Mg Tab 64.8 MG ORAL Q12HR, #30 TAB 0 Refills Polyethylene Glycol 3350* (Miralax*) 17 Gm Powd.pack 17 GM ORAL DAILY PRN for Constipation, PACKET Risperidone* (Risperdal*) 1 Mg Tablet 1 MG PO BIDAC, TAB Discharge Discharge Disposition Patient was discharged to SNF/Subacute Facility(03) with hospice services Discharge Diagnoses: Santi (Ame Moore NP Feb 14, 2017 13:35
--- NOTE | 2017-02-15 05:15 | Discharge Summary 2 SIG ---
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 Workup in the emergency room showed WBC -11.6. Urinalysis with evidence of urinary tract infection. The patient was given ceftriaxone. Blood pressure was borderline -90/60. One liter of IV fluid was given, and blood pressure responded to fluid challenge. EKG revealed normal sinus rhythm. Chest x-ray revealed no acute cardiopulmonary pathology. Sodium -153 , potassium -6.1, BUN -84 and creatinine- 4.4. Troponin was negative. Lactic acid was within normal limits. The patient was admitted for episode of generalized weakness, UTI, acute kidney injury, dehydration, hyperkalemia, and hypernatremia. HOSPITAL COURSE: The patient was admitted. The patient was started on the IV fluids and empiric antibiotics. Infectious Disease specialist followed. Antibiotic regimen was optimized based on culture. Blood culture were negative. Urine culture revealed E. coli. No fever, but still with leukocytosis. Per ID, the patient had recent right leg cellulitis, status post treatment. Last chest x-ray on 02/08/2017 showed new or increased bilateral pleural fluid and increased bilateral basilar atelectasis since 02/02/2017. ID recommended to obtain sputum and continue antibiotics., upon discharge, switch antibiotic to Keflex to complete the course. No diarrhea. Hyperkalemia was treated in the emergency room with a hyperkalemia cocktail. IV fluids were continued. Renal ultrasound revealed no hydronephrosis, but showed left cystic lesion in the right kidney with ill- defined borders. CT of abdomen and pelvis was ordered, however, per drug abuse technician without IV contrast, radiology can have a good image. Therefore, CAT scan of the abdomen and pelvis was canceled. Will await for a creatinine to trend down and then subsequently CAT scan can be done as an outpatient. Vulcanizer Operator closely followed. Renal parameters and electrolytes were closely monitored and corrected as needed. Nephrotoxics were avoided. Acute renal failure/acute kidney injury and hypernatremia likely precipitated by dehydration. Prior to discharge , sodium -139 and potassium -3.9. Renal parameters improved with hydration. BUN -32 and creatinine down -2.1. Seizure precautions were maintained. The patient was on multiple antiepileptic regimen. Levels were checked, no seizure activity while in the hospital. Supplemental oxygen and pulmonary toilet were provided as needed. Venous duplex of bilateral lower extremities was negative. Anemia workup was consistent with anemia of chronic disease. Hemoglobin and hematocrit remained on the baseline. Stool for OB was negative. Elevated LFT trended down to normal. Wound care nurse seen the patient for deep tissue injury, right lateral mid foot and right lateral malleolus stage I pressure ulcer, present on admission. Wound care was provided as per wound care nurse recommendation. Psychiatrist followed and diagnosed the patient with encephalopathy and schizophrenia. and optimized psychiatric medication regimen. The patient undergone swallow evaluation. Per speech therapist, the patient had oropharyngeal dysphagia. Speech therapist recommended video swallow study, which could be done as outpatient, but for quality of life diet downgraded. Strict aspiration and reflux precautions were maintained with one-to-one feeding. Per mail agent assessment the patient was at high nutritional risk. Dietary recommendations were implemented. Plan of care was discussed with the family. Family opted for comfort care and hospice services with no further hospitalization. The patient was discharged to [facility] with hospice services as per family preference. FINAL DIAGNOSES: 1. Acute renal failure secondary to dehydration, improving. 2. Urinary tract infection with Escherichia coli. 3. Dehydration, resolved. 4. Electrolyte imbalance (hypernatremia and hyperkalemia, resolved). 5. Elevated liver function tests, resolved. 6. Dysphagia. 7. History of cerebrovascular accident due to cerebral aneurysm with right hemiplegia and expressive aphasia. 8. s/p craniotomy 9. Seizure disorder. 10. Anemia. 11. Schizophrenia. 12. Protein-calorie malnutrition. 13. Encephalopathy. DISCHARGE MEDICATIONS: See medication reconciliation list. DISCHARGE INSTRUCTIONS: The patient was discharged to residential facility with hospice care. Shine Ferrer M.D. [facility], N.PGokul DR: SHADIA JOB#: [id number] CC: VELASQUEZ
== END 2017-02-10 11:25 | DRG 682 ==
LOC: EDBD 16:14 → EMR 16:50 → 2E 17:25 → EDBEDREQSVC 17:31 → EDBEDREQ 18:52 → 4E 20:50 → 2E 02-03 10:16 → 4E 02-03 18:14
DX: N17.9 Acute kidney failure, unspecified (principal); G93.40 Encephalopathy, unspecified; E46 Unspecified protein-calorie malnutrition; E87.0 Hyperosmolality and hypernatremia; E87.5 Hyperkalemia; R13.10 Dysphagia, unspecified; I69.351 Hemiplegia and hemiparesis following cerebral infarction affecting right dominant side; Z43.1 Encounter for attention to gastrostomy; N39.0 Urinary tract infection, site not specified; E86.0 Dehydration; G40.909 Epilepsy, unspecified, not intractable, without status epilepticus; D64.9 Anemia, unspecified; F20.9 Schizophrenia, unspecified; I69.320 Aphasia following cerebral infarction; I25.9 Chronic ischemic heart disease, unspecified; G62.9 Polyneuropathy, unspecified; I69.390 Apraxia following cerebral infarction; F32.9 Major depressive disorder, single episode, unspecified; R45.1 Restlessness and agitation; L89.511 Pressure ulcer of right ankle, stage 1
CPT/HCPCS: 36415; 71010; 76775; 80053; 80061; 80164; 80184; 80299; 81003; 82270; 82378; 82550; 82607; 82728; 82747; 82962; 82977; 83540; 83550; 83605; 83735; 83880; 84100; 84443; 84484; 84550; 85007; 85025; 86140; 87040; 87081; 87086; 87181; 93005; 93970; 94664; 99285

== ENCOUNTER 2017-03-19 00:56 | Inpatient (IN) | payer MEDICARE, MEDICAID ==
[~2017-03-19] VITALS: Ht 175.3 cm; Wt 63.5 kg
[2017-03-19] VITALS (8 sets, daily range): BP systolic 93–116; BP diastolic 50–77
[~2017-03-19 00:56] MED LIST changes: +DULCOLAX10 MG RC; +DUONEB 0.5-3(2.53 ML HHN; +FLEET ENEMA133 ML RECTAL; +GABAPENTIN100 MG ORAL; +HALDOL5 MG/1 ML IJ; +HEPARIN SO5000 UNIT2 SUBQ; +LORAZEPAM0.5 MG ORAL; +MILK OF MA400 MG/51 ORAL; +MIRALAX17 G2 ORAL; +NITROGLYCERIN0.4 MG SL; +NORCO 5-325 TA1 EACH ORAL; +PRO-STAT LIQUID30 ML ORAL; +SENNA8.6 M2 PO; +TEMAZEPAM15 MG ORAL; +ZOFRAN4 M3 ORAL
[2017-03-19 01:30] LABS: BASOPHILS % (AUTO) 0.3 % (0.0-2.0); EOSINOPHILS % (AUTO) 0.4 % (0.0-3.0); HEMATOCRIT 36.7 % (42.0-52.0); HEMOGLOBIN 12.2 G/DL (14.2-18.0); LYMPHOCYTES % (AUTO) 10.8 % (20.0-45.0); MEAN CORPUSCULAR VOLUME 94 FL (80-99); MONOCYTES % (AUTO) 7.1 % (1.0-10.0); NEUTROPHILS % (AUTO) 81.4 % (45.0-75.0); PLATELET COUNT 155 K/UL (150-450); RED BLOOD COUNT 3.91 M/UL (4.70-6.10); RED CELL DISTRIBUTION WIDTH 14.7 % (11.6-14.8); WHITE BLOOD COUNT 6.5 K/UL (4.8-10.8)
[2017-03-19] MEDS ORDERED: Albuterol ud Inhalation HHN ONE (01:30)
--- NOTE | 2017-03-19 01:30 | Emergency Room Report ---
History of Present Illness General Chief Complaint: Dyspnea/Respdistress Source: Medical Record, EMS Present Illness HPI This is an unfortunate 51-year-old male with a history of CVA, acute renal failure, chronic ischemic heart disease presents with chief complaint of altered mental status at rest or distress. He was recently admitted to alf on . Per EMS presents with respiratory distress the starting today. No nausea no vomiting. EMS said oxidation was 84% room air. Allergies: Coded Allergies: NO KNOWN ALLERGIES (Unverified Allergy, Unknown, 02/08/15) Patient History Past Medical History: see triage record, old chart reviewed, HTN, CVA/TIA, renal disease Past Surgical History: other Pertinent Family History: none Social History: Denies: smoking Immunizations: other Reviewed Nursing Documentation: PMH: Agreed, PSxH: Agreed Nursing Documentation-PMH Past Medical History: No History, Except For Hx Cardiac Problems: Yes - Ischemic heart disease, Anemia, Hypernatremia, hyperosmolality Hx Cancer: No Hx Gastrointestinal Problems: Yes - G-tube, Dysphagia History Of Psychiatric Problem: Yes - Schizophrenia Hx Neurological Problems: Yes - POLYNEUROPATHY, APRAXIA Hx Cerebrovascular Accident: Yes - Hemiplegia, Hemiparesis Hx Seizures: Yes Hx Epilepsy: Yes Hx Aphasia: Yes Review of Systems Constitutional: Reports: malaise, weakness Eye: Denies: eye pain, blurred vision ENT: Denies: ear pain, nose congestion, throat swelling Respiratory: Reports: shortness of breath, Denies: cough Cardiovascular: Denies: chest pain, palpitations Gastrointestinal: Denies: abdominal pain, diarrhea, nausea, vomiting Musculoskeletal: Denies: back pain, joint pain Skin: Denies: rash Neurological: Denies: headache, numbness Endocrine: Denies: increased thirst, increased urine Hematologic/Lymphatic: Denies: easy bruising All Other Systems: negative except mentioned in HPI Physical Exam Vital Signs Date Time Temp Pulse Resp B/P (MAP) Pulse Ox O2 Delivery O2 Flow Rate FiO2 03/19/17 00:57 97.5 93 25 93/60 89 Non-Rebreather vitals with hypotension and hypoxia Sp02 EP Interpretation: abnormal General Appearance: severe distress, Stupor Head: normocephalic, atraumatic Eyes: bilateral eye PERRL, bilateral eye EOMI ENT: hearing grossly normal, dry mucus membranes, other - old trach scar Neck: full range of motion, supple, no meningismus Respiratory: chest non-tender, respiratory distress, decreased breath sounds, crackles, rhonchi Cardiovascular #1: regular rate, rhythm, no murmur Gastrointestinal: normal bowel sounds, non tender, no mass, no organomegaly, no bruit, non-distended Musculoskeletal: normal range of motion Neurologic: other - obtunded. Skin: warm/dry Procedures Critical Care Time Critical Care Time Critical care is mandated in this patient who presented with sepsis from pneumonia. Patient require my urgent intervention to attenuate the risks of metabolic collapse which may lead to cardiovascular collapse and . Critical care time is 35 minutes excluding any reportable procedure. Critical care time included evaluation, multiple reevaluation, looking at old charts, interpreting laboratory and diagnostic data, discussing case with patient and family and consultants, and charting. Medical Decision Making Diagnostic Impression: Primary Impression: Encephalopathy acute Additional Impressions: Sepsis Qualified Codes: A41.9 - Sepsis, unspecified organism Pneumonia Qualified Codes: J18.1 - Lobar pneumonia, unspecified organism Dehydration ADOLFO (acute kidney injury) Respiratory failure with hypoxia Qualified Codes: J96.01 - Acute respiratory failure with hypoxia ER Course Patient presents with respiratory distress and respiratory failure requiring BiPAP. This is secondary to pneumonia. After IV antibiotics and IV fluid. Patient is awake and more alert. He tried to remove his BiPAP. I was able to wean him off of it. He agreed back to baseline. No evidence of any ACS, PE, dissection or CHF to name a few. We'll admit to Dr. Ferrer. Sepsis reevaluation: Time 4:26 AM, temperature 90.8, heart rate 93, blood pressure 113/68, oxygenation 99% on BiPAP. mental status: More awake and moving around. Cardiovascular: Regular rate and rhythm Respiratory: Better movement, left lower lobe crackles Abdomen: Soft Extremity: No edema Skin: No mottling Lab Results Impression labs unremarkable. EKG Diagnostic Results EKG Time: : Rate: normal Rhythm: NSR ST Segments: no acute changes Rhythm Strip Diag. Results Rhythm Strip Time: : EP Interpretation: yes Rate: 89 Rhythm: NSR, no PVC's, no ectopy Chest X-Ray Diagnostic Results Chest X-Ray Diagnostic Results : Chest X-Ray Ordered: Yes # of Views/Limited/Complete: 1 View Indication: Shortness of Breath EP Interpretation: Yes Interpretation: no effusion, no pneumothorax, other - LLL infiltrate Impression: Other - LLL infiltrate Electronically Signed by: Sancho Epps MD Last Vital Signs Date Time Temp Pulse Resp B/P (MAP) Pulse Ox O2 Delivery O2 Flow Rate FiO2 03/19/17 00:57 97.5 93 25 93/60 89 Non-Rebreather Status: improved Disposition: ADMITTED INPATIENT Condition: Serious SANCHO EPPS M.D. Mar 19, 2017 01:30
[2017-03-19 01:40] LABS: ANION GAP 6 mmol/L (5-15); BLOOD UREA NITROGEN 37 mg/dL (7-18); CALCIUM 9.9 MG/DL (8.5-10.1); CARBON DIOXIDE 27 MMOL/L (21-32); CHLORIDE 114 MMOL/L (98-107); CREATININE 1.6 MG/DL (0.55-1.30); POTASSIUM 4.9 MMOL/L (3.5-5.1); SODIUM 147 MMOL/L (136-145)
[2017-03-19 01:55] LABS: ALANINE AMINOTRANSFERASE 35 U/L (12-78); ALBUMIN/GLOBULIN RATIO 0.5 (1.0-2.7); ALKALINE PHOSPHATASE 257 U/L (46-116); ASPARTATE AMINO TRANSFERASE 23 U/L (15-37); BILIRUBIN,TOTAL 0.3 MG/DL (0.2-1.0); CKMB 0.7 NG/ML (0.0-3.6); CREATINE KINASE 23 U/L (26-308)
[2017-03-19] MEDS ORDERED: Piperacillin/Tazobactam 4.5 GM in NS 110 ML IVPB ONE (02:45)
[2017-03-19] MEDS ORDERED: Zosyn 4.5gm inj ONE (02:51)
[2017-03-19] MEDS ORDERED: LORazepam Inj 2mg/ml 1ml IV ONE ×2 (04:30)
[2017-03-19 05:21] LABS: APPEARANCE,URINE CLEAR; BILIRUBIN, URINE NEGATIVE (NEGATIVE); COLOR,URINE PALE YELLOW; GLUCOSE, URINE (UA) NEGATIVE (NEGATIVE); KETONES,URINE NEGATIVE (NEGATIVE); LEUKOCYTE ESTERASE ,URINE 1+ (NEGATIVE); NITRITE,URINE NEGATIVE (NEGATIVE); PH,URINE 6 (4.5-8.0); PROTEIN,URINE NEGATIVE (NEGATIVE); UROBILINOGEN,URINE NORMAL MG/DL (0.0-1.0)
[2017-03-19] MEDS ORDERED: Promethazine/Codeine 5ml UD ORAL PRN (08:00)
[2017-03-19] MEDS ORDERED: Nitroglycerin Subl 0.4mg tab SL PRN (08:00)
[2017-03-19] MEDS ORDERED: Mylanta II UD 30ml ORAL PRN (08:00)
[2017-03-19] MEDS ORDERED: Miralax 17gm pkt ORAL PRN (08:00)
[2017-03-19] MEDS ORDERED: Albuterol/Ipratropium 3ml neb HHN PRN (08:00)
[2017-03-19] MEDS: PHENobarbital 32.4mg tab ORAL SCH ×2 (09:00→21:00)
[2017-03-19] MEDS ORDERED: Heparin 5000 units/ml inj SUBQ SCH (09:00)
[2017-03-19] MEDS: Depakote ER 500mg tab ORAL SCH ×2 (09:00→21:00)
--- NOTE | 2017-03-19 09:09 | History and Physical ---
History of Present Illness General Date patient seen: Mar 19, 2017 Reason for Hospitalization: Dyspnea/Respdistress Present Illness HPI Patient is a 52 yo male with pmhx schizophrenia, dysphagia, G tube, status post CVA with profound debility, altered mental status, who presents to [facility] with chief complaint of increasing obtundation, non-responsiveness and increasing cough and toxic appearance. Upon examination in the emergency room the patients laboratory results reveal signs of infection including pnuemonia with patchy and dense consolidations, with pleural fluid suspected in both lung bases. Patient also appears to be suffering from severe dehydration and renal failure. Allergies: Coded Allergies: NO KNOWN ALLERGIES (Unverified Allergy, Unknown, 02/08/15) Medication History Scheduled Divalproex Sodium* (Depakote Er*), 500 MG ORAL EVERY 12 HOURS, (Reported) Docusate Sodium* (Colace*), 100 MG ORAL DAILY, (Reported) Gabapentin* (Gabapentin*), 100 MG ORAL THREE TIMES A DAY, (Reported) Heparin Sod (Porcine) (Heparin Sodium*), 5,000 UNITS SUBQ EVERY 12 HOURS, ( Reported) Levetiracetam (Keppra), 1,500 MG ORAL EVERY 12 HOURS, (Reported) Phenobarbital (Phenobarbital), 64.8 MG ORAL Q12HR, (Reported) Risperidone* (Risperdal*), 1 MG PO BIDAC, (Reported) Scheduled PRN Acetaminophen (Tylenol), 650 MG ORAL Q4HR PRN for Fever/Headache/Mild Pain, ( Reported) Bisacodyl (Dulcolax), 10 MG RC QOD PRN for Constipation, (Reported) Hydrocodone Bit/Acetaminophen 5-325* ([place] 5-325 Tablet*), 1 TAB ORAL Q6HR PRN for For Pain, (Reported) Lorazepam* (Lorazepam*), 0.5 MG ORAL Q6HR PRN for For Anxiety, (Reported) Magnesium Hydroxide* (Milk Of Magnesia*), 30 ML ORAL QHS PRN for Constipation, ( Reported) Na Phos,M-B/Na Phos,Di-Ba* (Fleet Enema*), 133 ML RECTAL QOD PRN for Constipation, (Reported) Polyethylene Glycol 3350* (Miralax*), 17 GM ORAL DAILY PRN for Constipation, ( Reported) Sennosides (Senna), 17.2 MG PO BEDTIME PRN for Constipation, (Reported) Patient History Healthcare decision maker Resuscitation status Full Code Advanced Directive on File Past Medical/Surgical History Past Medical/Surgical History: (1) Acute renal failure (2) transaminitis, r/o depakote induced vs hepatitis (3) Seizure disorder (4) Acute renal failure (ARF) (5) 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 (6) chronic seizure disorder, refractory Review of Systems Constitutional: Reports: fever, malaise, weakness Respiratory: Reports: cough, shortness of breath, sputum Neurological: Reports: focal weakness Physical Exam General Appearance: lethargic, mild distress Lines, tubes and drains: peripheral HEENT: normocephalic, atraumatic, anicteric, mucous membranes moist, PERRL Neck: non-tender, normal alignment, supple Respiratory/Chest: chest wall non-tender, decreased breath sounds, rhonchi - bilaterally Breasts: no masses Cardiovascular/Chest: normal peripheral pulses, normal rate, regular rhythm, no JVD Abdomen: normal bowel sounds, non tender, soft, no organomegaly, no mass Genitourinary/Rectal: normal genital exam, normal rectal exam Extremities: normal range of motion, non-tender, normal inspection, no calf tenderness Skin Exam: normal pigmentation, warm/dry Neurologic: disoriented, unresponsiveness, aphasia, depressed affect Last 24 Hour Vital Signs Date Time Temp Pulse Resp B/P (MAP) Pulse Ox O2 Delivery O2 Flow Rate FiO2 03/19/17 09:01 67 36 98 Facial 100 03/19/17 08:21 15.0 100 03/19/17 08:20 89 03/19/17 07:23 78 40 98 Facial 100 03/19/17 07:00 97.6 86 20 116/68 98 Bi-pap 100 03/19/17 06:40 97.5 88 26 95/69 95 Non-Rebreather 15.0 80 03/19/17 05:51 88 26 95/69 95 Non-Rebreather 15.0 03/19/17 05:00 85 30 105/77 94 Non-Rebreather 15.0 03/19/17 03:30 76 36 100 Facial 80 03/19/17 03:00 79 35 98/50 100 Bi-pap 03/19/17 02:09 83 34 96 Facial 100 03/19/17 02:04 89 34 94 Non-Rebreather 95 03/19/17 01:44 99 24 88 Non-Rebreather 100 03/19/17 01:10 93 25 Non-Rebreather 15.0 03/19/17 01:10 97.5 25 93/60 89 Non-Rebreather 03/19/17 00:57 97.5 93 25 93/60 89 Non-Rebreather Intake and Output 03/18/17 03/19/17 19:00 07:00 Intake Total 0 ml Balance 0 ml Intake Oral 0 ml Laboratory Tests Test 03/19/17 01:15 03/19/17 01:18 03/19/17 05:15 White Blood Count 6.5 K/UL (4.8-10.8) Red Blood Count 3.91 M/UL (4.70-6.10) L Hemoglobin 12.2 G/DL (14.2-18.0) L Hematocrit 36.7 % (42.0-52.0) L Mean Corpuscular Volume 94 FL (80-99) Mean Corpuscular Hemoglobin 31.3 PG (27.0-31.0) H Mean Corpuscular Hemoglobin Concent 33.4 G/DL (32.0-36.0) Red Cell Distribution Width 14.7 % (11.6-14.8) Platelet Count 155 K/UL (150-450) Mean Platelet Volume 7.3 FL (6.5-10.1) Neutrophils (%) (Auto) 81.4 % (45.0-75.0) H Lymphocytes (%) (Auto) 10.8 % (20.0-45.0) L Monocytes (%) (Auto) 7.1 % (1.0-10.0) Eosinophils (%) (Auto) 0.4 % (0.0-3.0) Basophils (%) (Auto) 0.3 % (0.0-2.0) Prothrombin Time 10.7 SEC (9.30-11.50) Prothromb Time International Ratio 1.0 (0.9-1.1) Activated Partial Thromboplast Time 38 SEC (23-33) H Sodium Level 147 MMOL/L (136-145) H Potassium Level 4.9 MMOL/L (3.5-5.1) Chloride Level 114 MMOL/L (98-107) H Carbon Dioxide Level 27 MMOL/L (21-32) Anion Gap 6 mmol/L (5-15) Blood Urea Nitrogen 37 mg/dL (7-18) H Creatinine 1.6 MG/DL (0.55-1.30) H Estimat Glomerular Filtration Rate 46.2 mL/min (>60) Glucose Level 89 MG/DL (74-106) Lactic Acid Level 1.20 mmol/L (0.66-2.22) Calcium Level 9.9 MG/DL (8.5-10.1) Total Bilirubin 0.3 MG/DL (0.2-1.0) Aspartate Amino Transf (AST/SGOT) 23 U/L (15-37) Alanine Aminotransferase (ALT/SGPT) 35 U/L (12-78) Alkaline Phosphatase 257 U/L (46-116) H Total Creatine Kinase 23 U/L (26-308) L Creatine Kinase MB 0.7 NG/ML (0.0-3.6) Creatine Kinase MB Relative Index 3.0 Troponin I 0.000 ng/mL (0.000-0.056) Pro-B-Type Natriuretic Peptide 78 pg/mL (0-125) Total Protein 9.5 G/DL (6.4-8.2) H Albumin 3.0 G/DL (3.4-5.0) L Globulin 6.5 g/dL Albumin/Globulin Ratio 0.5 (1.0-2.7) L Arterial Blood pH 7.354 (7.350-7.450) Arterial Blood Partial Pressure CO2 46.0 mmHg (35.0-45.0) H Arterial Blood Partial Pressure O2 53.9 mmHg (75.0-100.0) L Arterial Blood HCO3 25.1 mmol/L (22.0-26.0) Arterial Blood Oxygen Saturation 85.8 % (92.0-98.0) L Arterial Blood Base Excess -0.8 Kilo Test Positive Urine Color Pale yellow Urine Appearance Clear Urine pH 6 (4.5-8.0) Urine Specific [place] 1.005 (1.005-1.035) Urine Protein Negative (NEGATIVE) Urine Glucose (UA) Negative (NEGATIVE) Urine Ketones Negative (NEGATIVE) Urine Occult Blood 5+ (NEGATIVE) H Urine Nitrite Negative (NEGATIVE) Urine Bilirubin Negative (NEGATIVE) Urine Urobilinogen Normal MG/DL (0.0-1.0) Urine Leukocyte Esterase 1+ (NEGATIVE) H Urine RBC 10-15 /HPF (0 - 0) H Urine WBC 2-4 /HPF (0 - 0) Urine Squamous Epithelial Cells Occasional /LPF Urine Bacteria Few /HPF (NONE) Height (Feet): 5 Height (Inches): 9.00 Weight (Pounds): 140 Medications Current Medications Medications (Trade) Dose Ordered Sig/Ludy Route PRN Reason Start Time Stop Time Status Last Admin Dose Admin Acetaminophen (Tylenol) 650 mg Q4H PRN ORAL fever 03/19/17 08:00 04/18/17 07:59 Al Hydroxide/Mg Hydroxide (Mylanta II) 30 ml Q6H PRN ORAL dyspepsia 03/19/17 08:00 04/18/17 07:59 Albuterol/ Ipratropium (Albuterol/ Ipratropium) 3 ml Q4H PRN HHN Shortness of Breath 03/19/17 08:00 03/24/17 07:59 Cefepime HCl 1 gm/ Dextrose 55 ml @ 110 mls/hr EVERY 12 HOURS IV 03/19/17 09:00 03/26/17 08:59 Divalproex Sodium (Depakote ER) 500 mg EVERY 12 HOURS ORAL 03/19/17 09:00 04/18/17 08:59 Gabapentin (Neurontin) 100 mg THREE TIMES A DAY ORAL 03/19/17 09:00 04/18/17 08:59 Heparin Sodium (Porcine) (Heparin 5000 units/ml) 5,000 units EVERY 12 HOURS SUBQ 03/19/17 09:00 04/18/17 08:59 Levetiracetam (Keppra) 1,500 mg EVERY 12 HOURS ORAL 03/19/17 09:00 04/18/17 08:59 Nitroglycerin (Ntg) 0.4 mg Q5M PRN SL Prn Chest Pain 03/19/17 08:00 04/18/17 07:59 Ondansetron HCl (Zofran) 4 mg Q6H PRN IVP Nausea & Vomiting 03/19/17 08:00 04/18/17 07:59 Phenobarbital (PHENobarbital) 64.8 mg Q12HR ORAL 03/19/17 09:00 04/18/17 08:59 Polyethylene Glycol (Miralax) 17 gm DAILYPRN PRN ORAL Constipation 03/19/17 08:00 04/18/17 07:59 Promethazine HCl/ Codeine (Phenergan with Codeine) 5 ml Q4H PRN ORAL For Cough 03/19/17 08:00 04/18/17 07:59 Risperidone (RisperDAL) 1 mg DAILY ORAL 03/19/17 09:00 04/18/17 08:59 Temazepam (Restoril) 15 mg HSPRN PRN ORAL Insomnia 03/19/17 08:00 03/26/17 07:59 Vancomycin HCl (Vanco rx to dose) 1 ea DAILY PRN MISC Per rx protocol 03/19/17 08:00 04/18/17 07:59 Vancomycin HCl 1 gm/Dextrose 275 ml @ 183.708 mls/hr Q24H IVPB 03/19/17 10:00 03/24/17 09:59 Assessment/Plan Problem List: (1) Pneumonia ICD Codes: J18.9 - Pneumonia, unspecified organism SNOMED: 326796677 Qualifiers: Qualified Codes: J18.1 - Lobar pneumonia, unspecified organism (2) Sepsis ICD Codes: A41.9 - Sepsis, unspecified organism SNOMED: 58077001 Qualifiers: Qualified Codes: A41.9 - Sepsis, unspecified organism (3) Acute renal failure (ARF) ICD Codes: N17.9 - Acute kidney failure, unspecified SNOMED: 66345863 Qualifiers: Qualified Codes: N17.9 - Acute kidney failure, unspecified (4) 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 (5) Seizure disorder ICD Codes: G40.909 - Epilepsy, unspecified, not intractable, without status epilepticus SNOMED: 194828525 Status: stable, progressing Assessment/Plan NPO IV abx titrate bipap avoid sedatives swallow study check electrolyte BALDEV Tate Mar 19, 2017 09:09
[2017-03-19] MEDS: Cefepime HCl 1 GM in D5W 55 ML IV SCH ×2 (10:12→21:09)
[2017-03-19] MEDS: Heparin 5000 units/ml inj SUBQ SCH ×2 (10:14→21:11)
[2017-03-19] MEDS: Vancomycin 1gm in D5W 275ml IVPB SCH (10:29)
--- NOTE | 2017-03-19 11:24 | Diagnostic Imaging Report ---
Indication: Shortness of breath Technique: XRAY Chest 1v Comparison: 02/08/2017 Findings: Interval development of patchy airspace opacities involving the left lung. This is most concerning for pneumonia. Heart size and mediastinal contours are stable. There are streaky opacity at the right base. No pneumothorax. No acute osseous abnormality. Impression: The focal patchy opacities in the left lung most concerning for pneumonia. Clinical correlation and follow-up exam recommended. This corresponds with the preliminary interpretation of the treating ER physician as documented in the electronic medical record. Patient admitted to the hospital at time of dictation of final report.
[2017-03-20] VITALS (7 sets, daily range): BP systolic 98–150; BP diastolic 47–73
[2017-03-20 05:53] LABS: BASOPHILS % (AUTO) 0.6 % (0.0-2.0); EOSINOPHILS % (AUTO) 0.8 % (0.0-3.0); HEMATOCRIT 32.1 % (42.0-52.0); HEMOGLOBIN 10.5 G/DL (14.2-18.0); LYMPHOCYTES % (AUTO) 20.7 % (20.0-45.0); MEAN CORPUSCULAR VOLUME 95 FL (80-99); MONOCYTES % (AUTO) 3.9 % (1.0-10.0); PLATELET COUNT 125 K/UL (150-450); RED BLOOD COUNT 3.36 M/UL (4.70-6.10); RED CELL DISTRIBUTION WIDTH 14.9 % (11.6-14.8); WHITE BLOOD COUNT 3.7 K/UL (4.8-10.8)
[2017-03-20 06:11] LABS: ALBUMIN 2.1 G/DL (3.4-5.0); ANION GAP 7 mmol/L (5-15); BLOOD UREA NITROGEN 22 mg/dL (7-18); CALCIUM 9.3 MG/DL (8.5-10.1); CARBON DIOXIDE 27 MMOL/L (21-32); CHLORIDE 119 MMOL/L (98-107); CREATININE 1.3 MG/DL (0.55-1.30); PHOSPHORUS 2.9 MG/DL (2.5-4.9); POTASSIUM 4.5 MMOL/L (3.5-5.1); SODIUM 153 MMOL/L (136-145)
[2017-03-20] MEDS: Heparin 5000 units/ml inj SUBQ SCH ×2 (09:00→21:00)
--- NOTE | 2017-03-20 09:36 | Diagnostic Imaging Report ---
Indication: NG tube placement Technique: XRAY Abdomen 1v Comparison: None Findings: NG Tube Tip and Side Port within the Stomach. Bowel gas pattern is nonspecific. Patchy left-sided airspace opacities better appreciated on prior dedicated chest radiograph. No acute osseous abnormality seen Impression: NG tube in the stomach.
[2017-03-20] MEDS: Cefepime HCl 1 GM in D5W 55 ML IV SCH ×2 (09:47→21:01)
[2017-03-20] MEDS: Vancomycin 1gm in D5W 275ml IVPB SCH (09:49)
[2017-03-20] MEDS: Gabapentin 300 MG/6 ML Soln ORAL SCH ×3 (09:49→18:16)
[2017-03-20] MEDS: Depakote ER 500mg tab ORAL SCH (09:50)
[2017-03-20] MEDS: PHENobarbital 32.4mg tab ORAL SCH ×2 (09:50→21:01)
--- NOTE | 2017-03-20 10:12 | Pulmonology Progress Note ---
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 (5) Seizure disorder Assessment/Plan no new complains continue IV abx Neuro evaluation pending haldol for agitation Id and neuro evaluation Subjective Interval Events: somnolent Allergies: Coded Allergies: NO KNOWN ALLERGIES (Unverified Allergy, Unknown, 02/08/15) Objective Last 24 Hour Vital Signs Date Time Temp Pulse Resp B/P (MAP) Pulse Ox O2 Delivery O2 Flow Rate FiO2 03/20/17 08:00 79 03/20/17 08:00 98.4 79 22 98/48 98 Venturi Mask 55 03/20/17 04:00 88 03/20/17 04:00 96.6 83 20 101/69 98 Venturi Mask 10.0 55 03/20/17 00:00 98.1 69 20 98/67 100 Venturi Mask 10.0 55 03/20/17 00:00 66 03/19/17 23:16 70 03/19/17 20:00 97.8 72 24 100/71 97 Venturi Mask 10.0 55 03/19/17 16:00 97.5 71 21 95/65 98 Bi-pap 100 03/19/17 15:54 72 03/19/17 15:54 15.0 50 03/19/17 15:29 60 34 99 Facial 50 03/19/17 13:03 59 29 100 Facial 60 03/19/17 12:00 97.2 66 18 106/61 98 Bi-pap 100 03/19/17 11:50 63 03/19/17 11:50 15.0 75 03/19/17 10:48 64 29 100 Facial 75 Intake and Output 03/19/17 03/20/17 19:00 07:00 Intake Total 330 ml 55 ml Output Total 550 ml 950 ml Balance -220 ml -895 ml IV Total 330 ml 55 ml Output Urine Total 550 ml 950 ml # Bowel Movements 1 General Appearance: WD/WN HEENT: normocephalic, atraumatic Respiratory/Chest: chest wall non-tender, lungs clear Cardiovascular: normal peripheral pulses, normal rate Abdomen: normal bowel sounds, soft, non tender Skin: no rash Neurologic/Psychiatric: [employer] II-XII grossly normal, no motor/sensory deficits, responsive Lymphatic: no neck adenopathy Musculoskeletal: normal muscle bulk, no effusion Microbiology Date/Time Source Procedure Growth Status 03/19/17 01:30 Blood Blood Culture - Preliminary NO GROWTH AFTER 24 HOURS Resulted 03/19/17 01:30 Blood Blood Culture - Preliminary NO GROWTH AFTER 24 HOURS Resulted Laboratory Tests 03/19/17 17:53: Arterial Blood pH 7.330L, Arterial Blood Partial Pressure CO2 44.9, Arterial Blood Partial Pressure O2 69.0L, Arterial Blood HCO3 23.6, Arterial Blood Oxygen Saturation 93.5, Arterial Blood Base Excess -2.2, Kilo Test Positive 03/20/17 04:50: White Blood Count 3.7L, Red Blood Count 3.36L, Hemoglobin 10.5L, Hematocrit 32.1L, Mean Corpuscular Volume 95, Mean Corpuscular Hemoglobin 31.2H, Mean Corpuscular Hemoglobin Concent 32.7, Red Cell Distribution Width 14.9H, Platelet Count 125L, Mean Platelet Volume 8.3, Neutrophils (%) (Auto) 74.0, Lymphocytes (%) (Auto) 20.7, Monocytes (%) (Auto) 3.9, Eosinophils (%) (Auto) 0.8, Basophils (%) (Auto) 0.6, Sodium Level 153H, Potassium Level 4.5, Chloride Level 119H, Carbon Dioxide Level 27, Anion Gap 7, Blood Urea Nitrogen 22H, Creatinine 1.3, Estimat Glomerular Filtration Rate 58.7, Glucose Level 70L, Calcium Level 9.3, Phosphorus Level 2.9, Albumin 2.1L Current Medications Medications (Trade) Dose Ordered Sig/Ludy Route PRN Reason Start Time Stop Time Status Last Admin Dose Admin Acetaminophen (Tylenol) 650 mg Q4H PRN ORAL fever 03/19/17 08:00 04/18/17 07:59 Al Hydroxide/Mg Hydroxide (Mylanta II) 30 ml Q6H PRN ORAL dyspepsia 03/19/17 08:00 04/18/17 07:59 Albuterol/ Ipratropium (Albuterol/ Ipratropium) 3 ml Q4H PRN HHN Shortness of Breath 03/19/17 08:00 03/24/17 07:59 Cefepime HCl 1 gm/ Dextrose 55 ml @ 110 mls/hr EVERY 12 HOURS IV 03/19/17 09:00 03/26/17 08:59 03/20/17 09:47 Dextrose 1,000 ml @ 100 mls/hr Q10H IV 03/20/17 08:00 04/19/17 07:59 03/20/17 09:45 Divalproex Sodium (Depakote ER) 500 mg EVERY 12 HOURS ORAL 03/19/17 09:00 04/18/17 08:59 03/20/17 09:50 Gabapentin (Neurontin) 100 mg TID ORAL 03/20/17 09:00 04/19/17 08:59 03/20/17 09:49 Heparin Sodium (Porcine) (Heparin 5000 units/ml) 5,000 units EVERY 12 HOURS SUBQ 03/19/17 09:00 04/18/17 08:59 03/19/17 21:11 Levetiracetam (Keppra) 1,500 mg EVERY 12 HOURS ORAL 03/19/17 09:00 04/18/17 08:59 03/20/17 09:50 Nitroglycerin (Ntg) 0.4 mg Q5M PRN SL Prn Chest Pain 03/19/17 08:00 04/18/17 07:59 Ondansetron HCl (Zofran) 4 mg Q6H PRN IVP Nausea & Vomiting 03/19/17 08:00 04/18/17 07:59 Phenobarbital (PHENobarbital) 64.8 mg Q12HR ORAL 03/19/17 09:00 04/18/17 08:59 03/20/17 09:50 Polyethylene Glycol (Miralax) 17 gm DAILYPRN PRN ORAL Constipation 03/19/17 08:00 04/18/17 07:59 Promethazine HCl/ Codeine (Phenergan with Codeine) 5 ml Q4H PRN ORAL For Cough 03/19/17 08:00 04/18/17 07:59 Risperidone (RisperDAL) 1 mg DAILY ORAL 03/19/17 09:00 04/18/17 08:59 03/20/17 09:50 Temazepam (Restoril) 15 mg HSPRN PRN ORAL Insomnia 03/19/17 08:00 03/26/17 07:59 Vancomycin HCl (Vanco rx to dose) 1 ea DAILY PRN MISC Per rx protocol 03/19/17 08:00 04/18/17 07:59 Vancomycin HCl 1 gm/Dextrose 275 ml @ 183.708 mls/hr Q24H IVPB 03/19/17 10:00 03/24/17 09:59 03/20/17 09:49 BALDEV TRENT Mar 20, 2017 10:12
--- NOTE | 2017-03-20 12:20 | Consultation ---
Consult Note Assessment/Plan Leukocytosis, worsening- stable- New b/l pleural effusion, r/o PNA -CXR 02/08: New or increased bilateral pleural fluid and increased bilateral basilar atelectasis, since 02/02/2017 -CXR: Bilateral basilar atelectasis versus scarring, favor the latter as findings are similar to the previous study of over one month ago No acute process otherwise -Bcx NTD UTI E coli -u/a WBC 5-10, nit +, leuk +3; UCx E.coli ( S ancef); repeat UCx NTD E;levated LFts (improved from prior admission) - -acute hep panel neg 12/2016 Recent R leg cellulitis s/p Rx -xray R foot/tibia/fibula-: no acute process -venous duplex BLE: no DVT -BCx Neg -HIV ag/ab neg, RPR neg VRE colonization hx MRSA colonization ADOLFO/ Dehydration -REnal US: Cystic lesion in the right kidney with ill-defined borders. Suggest correlation with contrast CT. Simple cyst left kidney.Thickened bladder wall. Cystitis suspected. Please correlate clinically. 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, s/p GT, anemia, s/p leg fracture 2014, non verbal (expressive aphasia), chronic contractures Plan: - Continue Ancef abx d# / , upon DC will change to Keflex to complete the course ; if febrile, worsening leukocytosis, will broad abx coverage -02/04 SP IV Cefepime #3 -02/03 SP IV Vancomcyin #2 -/ SP 10 d PO keflex/Doxy -12/29 SP IV Ancef/Doxy #4 -s/p 2d IV Vanco/Cefepime 12/26 -obtain sputum culture and f/u Bcx -if diarrhea obtain Cdiff -f/u SHELLY Cruz M.D. Mar 20, 2017 12:20
--- NOTE | 2017-03-20 12:27 | Cardiology Report ---
APPROVED REPORT EKG Measurement Heart [id number] ID [id number] Normal sinus rhythm Left anterior fascicular block Minimal voltage criteria for LVH, may be normal variant Cannot rule out Anterior infarct, age undetermined Abnormal ECG
--- NOTE | 2017-03-20 12:34 | Consultation ---
Consult Note Consult Note [id number] SHELLY LORENZANA M.D. Mar 20, 2017 12:34
--- NOTE | 2017-03-20 18:57 | Wound Care Consultation ---
Wound Assessment Wound Assessment #1: Wound Number: 1 Wound Present on Admission: Yes New Wound: No Status Change of Wound: No Wound Location Body Site Modif: left, lower, anterior Wound Location Body Site: leg Wound Type: other - redness Mendez Test: Does not Mendez Wound Length: 3.5 Wound Width: 3.0 Percent of Wound [place]/Red: 100 Wound Drainage Amount: None Wound Drainage Odor: None/Absent Tissue Surrounding Wound: Intact Wound General Appearance: Asymptomatic Wound Assessment #2: Wound Number: 2 Wound Present on Admission: Yes New Wound: No Status Change of Wound: No Wound Location Body Site Modif: right, dorsal Wound Location Body Site: foot Wound Type: lesion-etiology unknown Mendez Test: Does not Mendez Wound Thickness: Full Thickness Wound Length: 3.5 Wound Width: 3.0 Wound Depth: utd Percent of Wound Bed Yellow/Wh: 100 Wound Drainage Description: Serosanguineous Wound Drainage Amount: Moderate Wound Drainage Odor: None/Absent Tissue Surrounding Wound: Erythemic Wound General Appearance: Reddened - yellow, Draining Wound Assessment #3: Wound Number: 3 Wound Present on Admission: Yes New Wound: No Status Change of Wound: No Wound Location Body Site Modif: right, dorsal Wound Location Body Site: foot Wound Type: scab - scattered full thickness scabs Mendez Test: Does not Mendez Wound Thickness: Full Thickness Percent of Wound Purple/Maroon: 100 Wound Drainage Amount: None Wound Drainage Odor: None/Absent Tissue Surrounding Wound: Erythemic Wound General Appearance: Reddened - maroon Wound Assessment #4: Wound Number: 4 Wound Present on Admission: Yes New Wound: No Status Change of Wound: No Wound Location Body Site Modif: right, lateral Wound Location Body Site: malleolus/ankle Wound Type: pressure ulcer Mendez Test: Does not Mendez Pressure Ulcer Stage: Deep Tissue Injury - SDTI Wound Thickness: Full Thickness Wound Length: 2.0 Wound Width: 2.0 Wound Depth: utd Percent of Wound Purple/Maroon: 100 Wound Drainage Amount: None Wound Drainage Odor: None/Absent Tissue Surrounding Wound: Erythemic Wound General Appearance: Reddened - maroon Wound Comment #1 Right dorsal foot open wound etiology unknown #2 Right dorsal foot scattered full thickness scar tissue #3 Right lateral malleolus SDTI pressure ulcer #4 Left anterior lower leg with redness Recommendation -Local wound care per protocol -Keep clean and dry -Turn and reposition -Offload both heels -Heel protector on both heels -Low air loss mattress -Optimize nutrition -Assess and f/u accordingly for any changes CHEMA ANDERSON RN Mar 20, 2017 18:57
[2017-03-20] MEDS: Depakote 125mg Sprinkles GT SCH (22:05)
--- NOTE | 2017-03-20 23:15 | Consultation ---
DATE OF CONSULTATION: 03/20/2017 INFECTIOUS DISEASE CONSULTATION CONSULTING PHYSICIAN: Michele Dubose M.D. REQUESTING PHYSICIAN: Shine Ferrer M.D. REASON FOR CONSULTATION: Evaluation of the patient for sepsis and antibiotic management. HISTORY OF PRESENT ILLNESS: The patient is a 51-year-old male with multiple medical problems, who was [facility] center due to altered level of consciousness and respiratory distress. Infectious Disease consultation has been requested for evaluation of the patient for antibiotic management. The patient is not able to provide much information. Much of the information is gathered through the chart and speaking to staff. PAST MEDICAL HISTORY: 1. History of recent E. coli urinary tract infection. 2. History of right leg cellulitis. 3. History of seizure disorder. 4. Cardiomyopathy 5. CVA due to cerebral aneurysm status post craniotomy with residual right hemiplegia. 6. Anemia. 7. History of leg fracture in 2004. 8. History of upper extremity contractures. MEDICATIONS: IV vancomycin and cefepime. ALLERGIES: No known drug allergies. SOCIAL HISTORY: The patient FAMILY HISTORY: Unavailable. REVIEW OF SYSTEMS: Unobtainable. PHYSICAL EXAMINATION: VITAL SIGNS: Temperature 98, blood pressure , pulse 86, and respiratory rate 18. HEENT: No pale conjunctivae. No icterus. NECK: No lymphadenopathy. CHEST: Coarse breathing sounds. HEART: S1 and S2. ABDOMEN: Soft and obese. EXTREMITIES: No cyanosis. NEUROLOGIC: Nonverbal. LABORATORY DATA: White blood cells 3.7, hemoglobin 10, and platelet 125,000. UA, 10 to 15 red blood cells and 2 to 4 white blood cells. BUN 22 and creatinine 1.3. Liver function tests are unremarkable except alkaline phosphatase of 257. ASSESSMENT: 1. The patient is a 51-year-old male with pneumonia (chest x-ray shows left lung infiltrate). 2. Possible aspiration pneumonia. 3. Rule out urinary tract infection. 4. Rule out bacteremia. PLAN: 1. We will continue the patient on vancomycin and cefepime for now, day #1. 2. Monitor CBC. 3. Monitor BMP. 4. Monitor cultures (blood, urine, and sputum). 5. Ultrasound of the abdomen. 6. Based on the patient's clinical course and laboratories and cultures, we will do further recommendations. Thank you, Dr. Ferrer, for following me to participate in the care of this patient. I will follow the patient with you during this hospitalization. Michele Dubose M.D. DR: ALYCIA JOB#: [id number] CC: VELASQUEZ
[2017-03-21] VITALS (7 sets, daily range): BP systolic 65–102; BP diastolic 40–65
[2017-03-21] MEDS: Depakote 125mg Sprinkles GT SCH ×3 (01:30→14:57)
[2017-03-21] MEDS ORDERED: Haloperidol 5mg/ml Inj IVPB PRN (07:30)
[2017-03-21] MEDS: Heparin 5000 units/ml inj SUBQ SCH (08:41)
[2017-03-21] MEDS: PHENobarbital 32.4mg tab ORAL SCH (09:05)
[2017-03-21] MEDS: Cefepime HCl 1 GM in D5W 55 ML IV SCH (09:05)
[2017-03-21] MEDS: Gabapentin 300 MG/6 ML Soln ORAL SCH (09:06)
[2017-03-21] MEDS: Vancomycin 1gm in D5W 275ml IVPB SCH ×2 (09:07→10:08)
--- NOTE | 2017-03-21 10:42 | Diagnostic Imaging Report ---
Indication:Abdominal pain Technique: Grayscale and duplex Doppler imaging of the abdomen performed. Comparison: None Findings: Examination is limited because of bowel gas. Portions of the kidneys not seen. Portions of the liver not seen. The gallbladder is apparently identified although appears in an atypical location. Pancreas not well seen. No biliary ductal dilatation is demonstrated. There is no ascites. Spleen is not seen. IMPRESSION: Nondiagnostic study. Recommend repeating the examination or obtaining CT for further evaluation.
--- NOTE | 2017-03-21 11:43 | Pulmonolgy Critical Care Note ---
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 Respiratory: monitor respiratory rate, adjust FIO2, CXR Cardiac: continue to monitor HR/BP Renal: F/U I&O, check electrolytes Infectious Disease: check cultures, continue antibiotics Gastrointestinal: continue feedings/current rate Endocrine: continue sliding scale insulin Hematologic: monitor H/H, transfuse if hgb<8.5 Neurologic: PRN Morphine, keep patient comfortable Prophylaxis: Protonix Notes Reviewed: supervisor fish processing, cardio, renal Discussed with: nurses, consultants, rehabilitation case coordinatorpayroll accounting manager - Objective Last 24 Hour Vital Signs Date Time Temp Pulse Resp B/P (MAP) Pulse Ox O2 Delivery O2 Flow Rate FiO2 03/21/17 10:30 91 22 84 Facial 100 03/21/17 08:00 87 03/21/17 08:00 96.5 85 19 93/65 93 Non-Rebreather 94 03/21/17 07:37 84 03/21/17 07:22 88 22 Non-Rebreather 15.0 100 03/21/17 07:21 93 Non-Rebreather 15.0 100 03/21/17 07:21 Non-Rebreather 15.0 100 03/21/17 04:00 81 03/21/17 04:00 96.0 90 24 102/59 93 Non-Rebreather 100 03/21/17 00:00 97.0 86 20 86/49 95 Venturi Mask 55 03/20/17 23:30 77 03/20/17 20:00 58 03/20/17 20:00 97.2 60 22 115/68 97 Venturi Mask 55 03/20/17 17:30 96.8 72 22 109/65 98 Venturi Mask 55 03/20/17 16:00 70 03/20/17 12:00 98.3 74 21 106/73 98 Venturi Mask 55 03/20/17 11:53 72 Status: obtunded Condition: critical HEENT: atraumatic Neck: full ROM Lungs: clear Heart: HR/BP stable, regular Abdomen: non-tender, feeding tube Extremities: no C/C/E Decubiti: location Micro: Microbiology Date/Time Source Procedure Growth Status 03/19/17 01:30 Blood Blood Culture - Preliminary NO GROWTH AFTER 48 HOURS Resulted 03/19/17 01:30 Blood Blood Culture - Preliminary NO GROWTH AFTER 48 HOURS Resulted 03/19/17 05:45 Nasal Nares MRSA Culture - Final NO METHICILLIN RESISTANT STAPH AUREUS... Complete 03/20/17 14:45 Urine,Clean Catch Urine Culture - Preliminary NO GROWTH Resulted 03/19/17 05:45 Rectum VRE Culture - Final Enterococcus Faecalis - Vre Complete Critical Care - Subjective ROS Limited/Unobtainable: Yes Interval Events: pt desaturated, on BIPAP now EKG Rhythm: Sinus Rhythm FI02: 100 Vent Support Mode: BiLevel Sputum Amount: None I&O: Intake and Output 03/20/17 03/21/17 19:00 07:00 Intake Total 1380 ml 315 ml Output Total 550 ml 1000 ml Balance 830 ml -685 ml Free Water 350 ml IV Total 1030 ml 215 ml Other 100 ml Output Urine Total 550 ml 1000 ml CXR: pending Labs: Laboratory Tests Test 03/21/17 08:55 03/21/17 10:50 Vancomycin Level Trough 14.7 ug/mL (5.0-12.0) H Arterial Blood pH 7.368 (7.350-7.450) Arterial Blood Partial Pressure CO2 44.2 mmHg (35.0-45.0) Arterial Blood Partial Pressure O2 53.4 mmHg (75.0-100.0) L Arterial Blood HCO3 24.9 mmol/L (22.0-26.0) Arterial Blood Oxygen Saturation 87.9 % (92.0-98.0) L Arterial Blood Base Excess -0.6 Kilo Test Positive BALDEV TRENT Mar 21, 2017 11:43
[2017-03-21] MEDS ORDERED: PCA Morphine 1mg/ml 30 ML IV SCH (12:15)
[2017-03-21] MEDS ORDERED: PCA Morphine 1mg/ml 30 ML IV PRN (12:15)
--- NOTE | 2017-03-21 12:38 | Diagnostic Imaging Report ---
Indication: Dyspnea Comparison: 03/19/2017 A single view chest radiograph was obtained. Findings: Patchy basal infiltrates are present. There is a probable left pleural effusion. Heart size is stable. IMPRESSION: Slightly worsening basilar lung disease
--- NOTE | 2017-03-21 12:56 | Infectious Diseases Prog Note ---
Assessment/Plan Assessment/Plan Assessment/Plan Leukocytosis, worsening- stable- New b/l pleural effusion, r/o PNA -CXR 02/08: New or increased bilateral pleural fluid and increased bilateral basilar atelectasis, since 02/02/2017 -CXR: Bilateral basilar atelectasis versus scarring, favor the latter as findings are similar to the previous study of over one month ago No acute process otherwise -Bcx NTD UTI E coli -u/a WBC 5-10, nit +, leuk +3; UCx E.coli ( S ancef); repeat UCx NTD E;levated LFts (improved from prior admission) - -acute hep panel neg 12/2016 Recent R leg cellulitis s/p Rx -xray R foot/tibia/fibula-: no acute process -venous duplex BLE: no DVT -BCx Neg -HIV ag/ab neg, RPR neg VRE colonization hx MRSA colonization ADOLFO/ Dehydration -REnal US: Cystic lesion in the right kidney with ill-defined borders. Suggest correlation with contrast CT. Simple cyst left kidney.Thickened bladder wall. Cystitis suspected. Please correlate clinically. 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, s/p GT, anemia, s/p leg fracture 2014, non verbal (expressive aphasia), chronic contractures Plan: pt will be placed on comfort care will sing off - on Ancef abx d# 8 / 10 , upon DC will change to Keflex to complete the course ; if febrile, worsening leukocytosis, will broad abx coverage -02/04 SP IV Cefepime #3 -02/03 SP IV Vancomcyin #2 -/ SP 10 d PO keflex/Doxy -12/29 SP IV Ancef/Doxy #4 -s/p 2d IV Vanco/Cefepime 12/26 -f/u cx Subjective Allergies: Coded Allergies: NO KNOWN ALLERGIES (Unverified Allergy, Unknown, 02/08/15) Objective Vital Signs Last 24 Hour Vital Signs Date Time Temp Pulse Resp B/P (MAP) Pulse Ox O2 Delivery O2 Flow Rate FiO2 03/21/17 12:00 94.3 76 17 83/40 95 Bi-pap 100 03/21/17 11:37 15.0 100 03/21/17 11:34 96.7 85 24 65/42 91 Bi-pap 100 03/21/17 11:34 81 03/21/17 10:30 91 22 84 Facial 100 03/21/17 08:00 87 03/21/17 08:00 96.5 85 19 93/65 93 Non-Rebreather 94 03/21/17 07:37 84 03/21/17 07:22 88 22 Non-Rebreather 15.0 100 03/21/17 07:21 93 Non-Rebreather 15.0 100 03/21/17 07:21 Non-Rebreather 15.0 100 03/21/17 04:00 81 03/21/17 04:00 96.0 90 24 102/59 93 Non-Rebreather 100 03/21/17 00:00 97.0 86 20 86/49 95 Venturi Mask 55 03/20/17 23:30 77 03/20/17 20:00 58 03/20/17 20:00 97.2 60 22 115/68 97 Venturi Mask 55 03/20/17 17:30 96.8 72 22 109/65 98 Venturi Mask 55 03/20/17 16:00 70 Height (Feet): 5 Height (Inches): 9.00 Weight (Pounds): 140 Microbiology Date/Time Source Procedure Growth Status 03/19/17 01:30 Blood Blood Culture - Preliminary NO GROWTH AFTER 48 HOURS Resulted 03/19/17 01:30 Blood Blood Culture - Preliminary NO GROWTH AFTER 48 HOURS Resulted 03/19/17 05:45 Nasal Nares MRSA Culture - Final NO METHICILLIN RESISTANT STAPH AUREUS... Complete 03/20/17 14:45 Urine,Clean Catch Urine Culture - Preliminary NO GROWTH Resulted 03/19/17 05:45 Rectum VRE Culture - Final Enterococcus Faecalis - Vre Complete Laboratory Tests Test 03/21/17 08:55 03/21/17 10:50 Vancomycin Level Trough 14.7 ug/mL (5.0-12.0) H Arterial Blood pH 7.368 (7.350-7.450) Arterial Blood Partial Pressure CO2 44.2 mmHg (35.0-45.0) Arterial Blood Partial Pressure O2 53.4 mmHg (75.0-100.0) L Arterial Blood HCO3 24.9 mmol/L (22.0-26.0) Arterial Blood Oxygen Saturation 87.9 % (92.0-98.0) L Arterial Blood Base Excess -0.6 Kilo Test Positive Current Medications Medications (Trade) Dose Ordered Sig/Ludy Route PRN Reason Start Time Stop Time Status Last Admin Dose Admin Morphine Sulfate 30 ml @ 0 mls/hr BALANCE TRUER PROTOCOL IV 03/21/17 12:15 03/23/17 12:14 SHELLY ALARCON M.D. Mar 21, 2017 12:56
--- NOTE | 2017-03-21 15:48 | Consultation ---
Consult Note Consult Note asked to eval for renal failure cr of 1.6 and electrolyte imbalance , high Na This is an unfortunate 51-year-old male with a history of CVA, acute renal failure, chronic ischemic heart disease presents with chief complaint of altered mental status at rest or distress. He was recently admitted to [facility] care on . Per EMS presents with respiratory distress the starting today. No nausea no vomiting. EMS said oxidation was 84% room air. 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 Status: Patient now off all meds and MS drip for comfort care will sign off MISSAEL MOON Mar 21, 2017 15:48
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
--- NOTE | 2017-03-21 22:15 | Progress Note ---
DATE: 03/21/2017 SUBJECTIVE: The patient is still agitated and confused. The patient is unable to understand process, communicate, or nor appreciate information is given to him in regards to his medical condition. Apparently, the patient is DNR and the patient currently is on morphine drip for comfort. The patient was calm during the evaluation. No agitation. MENTAL STATUS EXAMINATION: The patient was calm. Mood is neutral. Affect is flat. Eyes closed. Thought process, there is a paucity of thought content. Thought content, no suicidal or homicidal ideation. ASSESSMENT: Encephalopathy due to general medical condition. PLAN: We will continue morphine drip. The patient lacks capacity to make any medical decisions. His brother made the decision. Candido Tam M.D. DR: CHRIS JOB#: [id number] CC:
[2017-03-22] VITALS: BP 85/64
[2017-03-22] MEDS ORDERED: PCA Morphine 1mg/ml 30 ML IV PRN (02:45)
[2017-03-22 04:00] VITALS: BP 88/60
[2017-03-22 08:30] VITALS: BP 83/54
[2017-03-22 08:32] LABS: BASOPHILS % (AUTO) 0.9 % (0.0-2.0); EOSINOPHILS % (AUTO) 2.5 % (0.0-3.0); HEMATOCRIT 33.4 % (42.0-52.0); HEMOGLOBIN 10.6 G/DL (14.2-18.0); LYMPHOCYTES % (AUTO) 33.2 % (20.0-45.0); MEAN CORPUSCULAR VOLUME 95 FL (80-99); MONOCYTES % (AUTO) 4.1 % (1.0-10.0); NEUTROPHILS % (AUTO) 59.3 % (45.0-75.0); PLATELET COUNT 122 K/UL (150-450); RED CELL DISTRIBUTION WIDTH 15.3 % (11.6-14.8); WHITE BLOOD COUNT 4.9 K/UL (4.8-10.8)
[2017-03-22 10:07] LABS: ALANINE AMINOTRANSFERASE 24 U/L (12-78); ALBUMIN 1.9 G/DL (3.4-5.0); ALBUMIN/GLOBULIN RATIO 0.3 (1.0-2.7); ALKALINE PHOSPHATASE 171 U/L (46-116); ANION GAP 11 mmol/L (5-15); ASPARTATE AMINO TRANSFERASE 21 U/L (15-37); BILIRUBIN,TOTAL 0.2 MG/DL (0.2-1.0); BLOOD UREA NITROGEN 22 mg/dL (7-18); CARBON DIOXIDE 24 MMOL/L (21-32); CHLORIDE 113 MMOL/L (98-107); CREATININE 1.7 MG/DL (0.55-1.30); POTASSIUM 4.2 MMOL/L (3.5-5.1); SODIUM 147 MMOL/L (136-145)
[2017-03-22 10:10] LABS: CALCIUM < 5.0 MG/DL (8.5-10.1)
[2017-03-22] MEDS ORDERED: NS 500ML ONE (10:55)
--- NOTE | 2017-03-22 12:28 | General Progress Note ---
Subjective Date patient seen: Mar 22, 2017 Allergies: Coded Allergies: NO KNOWN ALLERGIES (Unverified Allergy, Unknown, 02/08/15) Subjective the pt on morphine drip. the pt was lethargic. the sister and at bedside. The pt at 10:56. I pronounced the time. Objective Last 24 Hour Vital Signs Date Time Temp Pulse Resp B/P (MAP) Pulse Ox O2 Delivery O2 Flow Rate FiO2 03/22/17 10:56 0 03/22/17 08:30 97.5 85 21 83/54 66 03/22/17 08:00 20 03/22/17 05:42 19 03/22/17 04:00 19 03/22/17 04:00 96.8 81 18 88/60 75 03/22/17 00:00 18 03/22/17 00:00 97.2 95 24 85/64 84 Room Air 03/21/17 20:00 97.0 91 16 78/42 75 Room Air 03/21/17 20:00 17 03/21/17 20:00 86 03/21/17 16:00 97.3 65 18 88/54 95 Room Air 88 03/21/17 15:29 86 03/21/17 13:14 95 31 78 Facial 100 Intake and Output 03/21/17 03/22/17 19:00 07:00 Intake Total 207 ml 8 ml Output Total 400 ml 50 ml Balance -193 ml -42 ml IV Total 7 ml 8 ml Other 200 ml Output Urine Total 400 ml 50 ml Laboratory Tests 03/22/17 07:20: White Blood Count 4.9, Red Blood Count 3.50L, Hemoglobin 10.6L, Hematocrit 33.4L , Mean Corpuscular Volume 95, Mean Corpuscular Hemoglobin 30.1, Mean Corpuscular Hemoglobin Concent 31.6L, Red Cell Distribution Width 15.3H, Platelet Count 122L, Mean Platelet Volume 8.4, Neutrophils (%) (Auto) 59.3, Lymphocytes (%) (Auto) 33.2, Monocytes (%) (Auto) 4.1, Eosinophils (%) (Auto) 2.5, Basophils (%) (Auto) 0.9, Sodium Level 147H, Potassium Level 4.2, Chloride Level 113H, Carbon Dioxide Level 24, Anion Gap 11, Blood Urea Nitrogen 22H, Creatinine 1.7H, Estimat Glomerular Filtration Rate 43.1, Glucose Level 32*L, Calcium Level < 5.0*L, Total Bilirubin 0.2, Aspartate Amino Transf (AST/SGOT) 21 , Alanine Aminotransferase (ALT/SGPT) 24, Alkaline Phosphatase 171H, Pro-B-Type Natriuretic Peptide 655H, Total Protein 7.9, Albumin 1.9L, Globulin 6.0, Albumin /Globulin Ratio 0.3L Height (Feet): 5 Height (Inches): 9.00 Weight (Pounds): 140 Candido Tam M.D. Mar 22, 2017 12:28
--- NOTE | 2017-03-22 16:44 | Pulmonology Progress Note ---
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 (5) Seizure disorder Assessment/Plan Neuro evaluation pending haldol for agitation comfort care Subjective Interval Events: seen earlier, with agonial breathing, comfortable Allergies: Coded Allergies: NO KNOWN ALLERGIES (Unverified Allergy, Unknown, 02/08/15) Objective Last 24 Hour Vital Signs Date Time Temp Pulse Resp B/P (MAP) Pulse Ox O2 Delivery O2 Flow Rate FiO2 03/22/17 10:56 0 03/22/17 08:30 97.5 85 21 83/54 66 03/22/17 08:00 20 03/22/17 05:42 19 03/22/17 04:00 19 03/22/17 04:00 96.8 81 18 88/60 75 03/22/17 00:00 18 03/22/17 00:00 97.2 95 24 85/64 84 Room Air 03/21/17 20:00 97.0 91 16 78/42 75 Room Air 03/21/17 20:00 17 03/21/17 20:00 86 Intake and Output 03/21/17 03/22/17 19:00 07:00 Intake Total 207 ml 8 ml Output Total 400 ml 50 ml Balance -193 ml -42 ml IV Total 7 ml 8 ml Other 200 ml Output Urine Total 400 ml 50 ml Objective General Appearance: WD/WN HEENT: normocephalic, atraumatic Respiratory/Chest: chest wall non-tender, lungs clear Cardiovascular: normal peripheral pulses, normal rate Abdomen: normal bowel sounds, soft, non tender Genitourinary: normal external genitalia Extremities: no cyanosis Lymphatic: no neck adenopathy Microbiology Date/Time Source Procedure Growth Status 03/20/17 14:45 Urine,Clean Catch Urine Culture - Preliminary YEAST Resulted Laboratory Tests 03/22/17 07:20: White Blood Count 4.9, Red Blood Count 3.50L, Hemoglobin 10.6L, Hematocrit 33.4L , Mean Corpuscular Volume 95, Mean Corpuscular Hemoglobin 30.1, Mean Corpuscular Hemoglobin Concent 31.6L, Red Cell Distribution Width 15.3H, Platelet Count 122L, Mean Platelet Volume 8.4, Neutrophils (%) (Auto) 59.3, Lymphocytes (%) (Auto) 33.2, Monocytes (%) (Auto) 4.1, Eosinophils (%) (Auto) 2.5, Basophils (%) (Auto) 0.9, Sodium Level 147H, Potassium Level 4.2, Chloride Level 113H, Carbon Dioxide Level 24, Anion Gap 11, Blood Urea Nitrogen 22H, Creatinine 1.7H, Estimat Glomerular Filtration Rate 43.1, Glucose Level 32*L, Calcium Level < 5.0*L, Total Bilirubin 0.2, Aspartate Amino Transf (AST/SGOT) 21 , Alanine Aminotransferase (ALT/SGPT) 24, Alkaline Phosphatase 171H, Pro-B-Type Natriuretic Peptide 655H, Total Protein 7.9, Albumin 1.9L, Globulin 6.0, Albumin /Globulin Ratio 0.3L BALDEV TRENT Mar 22, 2017 16:44
--- NOTE | 2017-03-23 15:19 | Discharge Summary ---
Discharge Summary Hospital Course Date of Admission Mar 19, 2017 at 03:59 Date of Discharge Mar 22, 2017 at 10:56 Admitting Diagnosis sepsis, pneumonia. HPI Bhavin Munson is a 51 year old male who was admitted on Mar 19, 2017 at 03:59 for Sepsis,Pneumonia Hospital Course [id number] Discharge Discharge Disposition Patient Discharge Diagnoses: Vani Tam NP Mar 23, 2017 15:19
--- NOTE | 2017-03-23 20:00 | Discharge Summary 2 SIG ---
DATE OF ADMISSION: 03/19/2017 DATE OF DISCHARGE: 03/22/2017 BRIEF SUMMARY: The patient was an unfortunate 51-year-old male with history of CVA, acute renal failure, chronic ischemic heart disease presented with chief complaint of altered mental status and dyspnea on rest and on exertion. He was recently discharged to [facility] under hospice. At the SNF, O2 saturation was 84% on room air per EMS report. On evaluation at the ED, the patient had respiratory failure requiring BiPAP. Chest x-ray showed left lung infiltrate and creatinine was 1.6. He was admitted to [facility] for acute kidney injury and respiratory failure. He was seen by Infectious Disease specialist and was given vancomycin and cefepime. He came in with right lateral malleolus pressure ulcer and right dorsal foot open wound. He was given wound care. He was continued on BiPAP. Urine culture showed growth of Sarah. The patient was confused and was on restraints. He was diagnosed to have encephalopathy and was given Depakote with haloperidol 5 mg every 4 hours p.r.n. Per family wishes, the patient was placed on comfort care. He was started on a morphine drip and the patient eventually . FINAL DIAGNOSES: 1. Sepsis. 2. Acute Respiratory failure with hypoxia due to Pneumonia. 3. Acute renal failure. 4. Seizure disorder. 5. Old aneurysmal rupture with left middle cerebral artery hemorrhagic stroke with hemiplegia and expressive aphasia. 6. Acute metabolic encephalopathy. 7. Urinary tract infection. Shine Ferrer M.D. I have been assigned to dictate discharge summary on this account and I was not involved in the patient's management. Vani Tam N.P. DR: BECKY JOB#: [id number] CC: [email or web address]
== END 2017-03-22 10:56 | disposition expired | DRG 871 ==
LOC: EDBD 00:56 → EDUNIT# 00:56 → EMR 01:42 → 2W 03:59 → ENRESERV 04:41 → EDBEDREQ 04:45 → 4E 03-22 03:07
PROC: 5A09357 Assistance with Respiratory Ventilation, Less than 24 Consecutive Hours, Continuous Positive Airway Pressure (ICD-10-PCS; principal; 2017-03-19)
DX: A41.9 Sepsis, unspecified organism (principal); J18.9 Pneumonia, unspecified organism; J96.01 Acute respiratory failure with hypoxia; G93.41 Metabolic encephalopathy; N17.9 Acute kidney failure, unspecified; E87.0 Hyperosmolality and hypernatremia; R13.10 Dysphagia, unspecified; E86.0 Dehydration; I42.9 Cardiomyopathy, unspecified; I69.159 Hemiplegia and hemiparesis following nontraumatic intracerebral hemorrhage affecting unspecified side; B37.49 Other urogenital candidiasis; G40.909 Epilepsy, unspecified, not intractable, without status epilepticus; I69.120 Aphasia following nontraumatic intracerebral hemorrhage; B96.20 Unspecified Escherichia coli [E. coli] as the cause of diseases classified elsewhere; Z16.21 Resistance to vancomycin; Z66 Do not resuscitate; G62.9 Polyneuropathy, unspecified; F20.9 Schizophrenia, unspecified; Z78.1 Physical restraint status; Z93.1 Gastrostomy status; L89.619 Pressure ulcer of right heel, unspecified stage; Z22.322 Carrier or suspected carrier of Methicillin resistant Staphylococcus aureus
CPT/HCPCS: 36415; 36600; 71045; 74018; 76700; 80053; 80069; 80202; 80299; 81003; 82550; 82553; 82803; 82962; 83605; 83880; 84484; 85025; 85610; 85730; 87040; 87081; 87086; 93005; 94640; 94660; 94664; 94760